=== PATIENT | female | born 1950 | race Caucasian/White ===

== ENCOUNTER 2017-06-20 14:59 | Inpatient (IN) ==
[2017-06-20] MEDS ORDERED: *HR* HYDROmorphone (PF) 1 MG/ML SYRINGE IVP ONE (15:05)
[2017-06-20] MEDS ORDERED: Ondansetron ODT 4 MG TAB.RAPDIS SL ONE (15:45)
[2017-06-20] MEDS ORDERED: Ondansetron 4 MG/2 ML VIAL ONE (15:46)
[2017-06-20] MEDS ORDERED: Ondansetron 4 MG/2 ML VIAL IVP ONE (15:48)
--- NOTE | 2017-06-20 15:52 | Emergency Department Note ---
Disposition Clinical Impression: Fracture of hip Qualifiers: Encounter type: initial encounter Fracture type: closed Laterality: left Qualified Code(s): S72.002A - Fracture of unspecified part of neck of left femur , initial encounter for closed fracture Disposition: Admitted As Inpatient Condition: Good Time of Disposition: 17:12 Lower Extremity Injury HPI - General Chief Complaint: ED Extremity Injury, Lower Stated Complaint: left hip pain Time Seen by Provider: 06/20/17 15:03 Source: patient, EMS Limitations: no limitations Nursing Notes Reviewed: Yes Vital Signs Reviewed: Yes - History of Present Illness HPI Narrative: 67-year-old female presents with left hip pain. Patient trips on footstep and struck her left hip prior to arrival. She fell on concrete. Denies any head injury or loss of consciousness. Denies any neck pain. No prior history of surgery to the leg. History of coronary artery bypass graft, hypertension, diabetes. Denies any recent illness, fever, chest pain. Reports this was purely a mechanical fall. Denies any alcohol use. On physical exam patient has tenderness to the left hip does not appear shortened or internally or externally rotated. X-ray of the left hip to evaluate for possible fracture or pelvis abnormality. Pt Subjective Complaint: hip injury - Related Data Home Medications Medication Instructions Recorded Confirmed Aspirin [Adult Low Dose Aspirin EC] 81 mg PO DAILY 02/14/16 06/20/17 Docusate Sodium [Dok] 100 mg PO QAM 02/14/16 06/20/17 Ergocalciferol (VITAMIN D2) 50,000 unit PO QWEEK 02/14/16 06/20/17 [Vitamin D2 (50,000 UNIT)] Fluticasone Propionate Nasal 1 spray NS DAILY PRN 02/14/16 06/20/17 [Flonase] Furosemide [Lasix] 60 mg PO DAILY 02/14/16 06/20/17 Gabapentin [Gralise] 300 mg PO BID 02/14/16 06/20/17 Levothyroxine [Synthroid] 112 mcg PO 0630 02/14/16 06/20/17 Loratadine [Claritin] 10 mg PO DAILY 02/14/16 06/20/17 Nitroglycerin [Nitrostat] 0.4 mg SL Q5M PRN 02/14/16 06/20/17 Clopidogrel [Plavix] 75 mg PO DAILY 01/02/17 06/20/17 Isosorbide MONOnitrate [Isosorbide 120 mg PO DAILY 01/02/17 06/20/17 Mononitrate ER] Rosuvastatin Calcium [Crestor] 20 mg PO HS 01/02/17 06/20/17 Insulin Lispro Protamin/Lispro 20 units SQ QPM 05/23/17 06/20/17 [Humalog Mix 75-25 Kwikpen] Insulin Lispro Protamin/Lispro 30 unit SQ QAM 05/23/17 06/20/17 [Humalog Mix 75-25 Kwikpen] Acetaminophen [Tylenol] 500 mg PO Q6HR PRN 06/20/17 06/20/17 Ferrous Gluconate 324 mg PO DAILY 06/20/17 06/20/17 Metoprolol XL (24 HR) Succ [Toprol 50 mg PO BID 06/20/17 06/20/17 XL] traZODone [TraZODone] 50 mg PO HS 06/20/17 06/20/17 Allergies Allergy/AdvReac Type Severity Reaction Status Date / Time No Known Allergies Allergy Verified 02/14/16 12:00 All systems ED: reviewed and negative except as stated. Review of Systems: As Per HPI Constitutional: Denies: fever, chills Cardiovascular: Denies: chest pain Respiratory: Denies: dyspnea Gastrointestinal: Denies: abdominal pain Genitourinary: Denies: dysuria Musculoskeletal: Reports: back pain, arthralgia Integumentary: Denies: rash, abrasion Neurological: Denies: headache Past Medical History - Past Medical History Attestation: Yes The following information was validated with the patient. Source: patient Medical history: Reports: CHF, coronary artery disease, CVA, diabetes, hyperlipidemia, hypertension, myocardial infarction, renal disease, thyroid disease Psychiatric history: Reports: no psych history INDIAN TRADER history: Reports: no INDIAN TRADER history - Social History Smoking Status: Never smoker Smokeless Tobacco Status: No Alcohol use: Reports: none Drug use: Reports: none Physical Exam - General Limitations: no limitations General appearance: alert, in distress (Uncomfortable) - Head Head exam: atraumatic, normocephalic - Eye Eye exam: Present: normal appearance - ENT ENT exam: normal exam - Neck Neck exam: Present: normal inspection - Chest Chest inspection: Present: normal inspection. Absent: symmetric chest wall rise , tenderness - Respiratory Respiratory exam: Present: normal lung sounds bilaterally. Absent: respiratory distress, wheezes - Cardiovascular Cardiovascular exam: Present: regular rate, normal rhythm, normal heart sounds - Abdominal Exam Abdominal exam: Present: soft, Non-Tender, normal bowel sounds. Absent: tenderness, distention, guarding, rebound, rigidity - Expanded Lower Extremity Exam Hip/Pelvis exam: Present: deformity, pelvis stable. Absent: swelling, ecchymosis, crepitus, dislocation, external rotation, internal rotation, shortening Upper leg exam: Present: normal inspection Knee exam: Present: normal inspection Lower leg exam: Present: normal inspection Ankle exam: Present: normal inspection Foot/toe exam: Present: normal inspection Neurovascular/Tendon exam: Present: normal capillary refill. Absent: pulse deficit, motor deficit, sensory deficit - Neurological Exam Neurological exam: Present: alert, oriented X3 - Skin Skin exam: Present: warm, dry, intact, normal color Course - Reevaluation(s) Reevaluation #1: Patient appears uncomfortable and concern for possible fracture. She prefers [place] on her right side as it is painful to lay on her back. No neck pain. Alert and oriented to person place and time. No obvious other trauma. Good sensation bilaterally. Pulses are equal bilaterally. X-ray shows intertrochanteric fracture of the left hip. He should admitted to medicine after consulting orthopedic surgeon. No immediate surgery scheduled at this time - Consultations Consultation #1: Spoke to Dr. Prince on-call orthopedic surgeon, will speak to Dr. Parrish for possible surgery. Recommend admission to medicine for left acute intertrochanteric fracture. Pre-op labs and images ordered. No CT scan at this time. Time: 16:30 Consultation #2: Spoke to Dr. Resendiz for admission of left hip fracture. No further orders at this time. Time: 16:31 Vital Signs Temperature 97.8 F 06/20/17 15:00 Pulse Rate 69 06/20/17 15:00 Respiratory Rate 18 06/20/17 15:00 Blood Pressure 180/76 06/20/17 15:00 O2 Sat by Pulse Oximetry 100 06/20/17 15:00 Temperature 97.8 F 06/20/17 15:00 Pulse Rate 64 06/20/17 16:54 Respiratory Rate 18 06/20/17 17:03 Blood Pressure 167/81 06/20/17 17:03 O2 Sat by Pulse Oximetry 100 06/20/17 16:54 Oxygen Delivery Oxygen Delivery Nasal Cannula Extremity Injury, Lower - Medical Records Medical records reviewed: Yes I reviewed the patient's medical records. - Lab Data Lab results reviewed: Yes I reviewed the patient's lab results. Result diagrams: 06/20/17 16:36 06/20/17 16:36 Lab Results 06/20/17 06/20/17 06/20/17 Range/Units 15:44 16:36 16:36 WBC 14.4 H D (4.3-11.1) K/mcL RBC 3.49 L (3.82-4.97) M/mcL Hgb 10.3 L (11.5-15.4) g/dL Hct 31.5 L (35.3-44.9) % MCV 90.3 (83.0-100.0) fL MCH 29.5 (28.0-33.3) pg MCHC 32.7 (31.6-35.5) g/dL RDW 13.2 (11.5-14.5) % Plt Count 153 (140-400) K/mcL MPV 10.9 (9.4-12.4) fL Immature Gran % 0.6 (0-4) % Seg Neutrophils % 86.5 % Lymphocytes % 9.0 % Monocytes % 3.6 % Eosinophils % 0.1 % Basophils % 0.2 % Neutrophils # 12.5 H (1.6-8.9) K/mcL Lymphocytes # 1.3 (0.6-4.6) K/mcL Monocytes # 0.5 (0.0-1.3) K/mcL Eosinophils # 0.0 (0.0-0.6) K/mcL Basophils # 0.0 (0.0-0.2) K/mcL PT 11.6 (9.4-12.1) Seconds INR 1.1 Sodium (136-145) mEq/L Potassium (3.5-4.5) mEq/L Chloride (98-109) mEq/L Carbon Dioxide (19-29) mEq/L BUN (7-20) mg/dL Creatinine (0.57-1.11) mg/dL Est GFR ( Amer) (> 60) Est GFR (Non-Af Amer) (> 60) BUN/Creatinine Ratio (6-26) Glucose (70-99) mg/dL Calculated Osmolality (280-300) Calcium (8.6-10.8) mg/dL Urine Color Yellow (Yellow) Urine Clarity Clear (Clear) Urine pH 7.0 (5.0-8.0) pH Units Ur Specific [place] 1.012 (1.010-1.025) Urine Protein 30 H (Neg-Trace) mg/dL Urine Glucose (UA) 500 H (Normal) mg/dL Urine Ketones Negative (Negative) mg/dL Urine Blood Trace H (Negative) Urine Nitrite Negative (Negative) Urine Bilirubin Negative (Negative) Urine Urobilinogen Normal (Normal) mg/dL Ur Leukocyte Esterase Negative (Negative) Urine Microscopic RBC 0-3 (0-3) per hpf Urine Microscopic WBC 0-3 (0-3) per hpf Ur Squamous Epith Cells Moderate H (None-Few) per lpf Urine Bacteria None Seen (None-Few) per hpf Hyaline Casts None Seen (None-Few) per lpf Ur Culture Indicated? NO (NO) 06/20/17 Range/Units 16:36 WBC (4.3-11.1) K/mcL RBC (3.82-4.97) M/mcL Hgb (11.5-15.4) g/dL Hct (35.3-44.9) % MCV (83.0-100.0) fL MCH (28.0-33.3) pg MCHC (31.6-35.5) g/dL RDW (11.5-14.5) % Plt Count (140-400) K/mcL MPV (9.4-12.4) fL Immature Gran % (0-4) % Seg Neutrophils % % Lymphocytes % % Monocytes % % Eosinophils % % Basophils % % Neutrophils # (1.6-8.9) K/mcL Lymphocytes # (0.6-4.6) K/mcL Monocytes # (0.0-1.3) K/mcL Eosinophils # (0.0-0.6) K/mcL Basophils # (0.0-0.2) K/mcL PT (9.4-12.1) Seconds INR Sodium 134 L (136-145) mEq/L Potassium 4.0 (3.5-4.5) mEq/L Chloride 99 (98-109) mEq/L Carbon Dioxide 24 (19-29) mEq/L BUN 52 H (7-20) mg/dL Creatinine 1.79 H (0.57-1.11) mg/dL Est GFR ( Amer) 34 L (> 60) Est GFR (Non-Af Amer) 28 L (> 60) BUN/Creatinine Ratio 29 H (6-26) Glucose 319 H (70-99) mg/dL Calculated Osmolality 304 H (280-300) Calcium 9.7 (8.6-10.8) mg/dL Urine Color (Yellow) Urine Clarity (Clear) Urine pH (5.0-8.0) pH Units Ur Specific [place] (1.010-1.025) Urine Protein (Neg-Trace) mg/dL Urine Glucose (UA) (Normal) mg/dL Urine Ketones (Negative) mg/dL Urine Blood (Negative) Urine Nitrite (Negative) Urine Bilirubin (Negative) Urine Urobilinogen (Normal) mg/dL Ur Leukocyte Esterase (Negative) Urine Microscopic RBC (0-3) per hpf Urine Microscopic WBC (0-3) per hpf Ur Squamous Epith Cells (None-Few) per lpf Urine Bacteria (None-Few) per hpf Hyaline Casts (None-Few) per lpf Ur Culture Indicated? (NO) - Radiology Data Radiology results reviewed: Yes I reviewed the patient's radiology results. Hip X-Ray 06/20/17 15:29 IMPRESSION: Acute left-sided intertrochanteric femur fracture D/ / Jared Phipps MD / Jared Phipps MD Interpreting Provider: Jared Phipps MD - EKG Data EKG attestation: Yes I reviewed and interpreted this EKG. EKG results narrative: EKG performed 1647 normal sinus rhythm 65 beats per minute normal axis, no ST elevations or depression, intervals are within normal limits. No old EKG for comparison. No acute ischemic changes.
--- NOTE | 2017-06-20 15:53 | Emergency Department Note ---
START Narrative - START START: I examined this patient and my medical decision-making was reviewed with the Resident Physician. I agree with the documented findings, disposition and treatment plan as described except to the extent set forth below. 67-year-old female presents to the ER after a fall on her left hip. We will obtain plain films to evaluate for possible hip fracture versus pelvic fracture versus hip dislocation.
[2017-06-20] MEDS ORDERED: *HR* Promethazine 25 MG/ML VIAL IVP ONE (16:20)
[2017-06-20] MEDS ORDERED: 0.9 % Sodium Chloride 1,000 ML IVC ONE (16:21)
[2017-06-20 16:37] LABS: Bilirubin,Urine Negative (Negative); Blood,Urine Trace (Negative); Clarity,Urine Clear (Clear); Color,Urine Yellow (Yellow); Glucose,Urine (UA) 500 mg/dL (Normal); Ketones,Urine Negative (Negative); Leukocyte Esterase,Urine Negative (Negative); Nitrite,Urine Negative (Negative); Protein,Urine 30 mg/dL (Neg-Trace); Specific Gravity,Urine 1.012 (1.010-1.025); Urobilinogen,Urine Normal (Normal)
[2017-06-20 16:38] LABS: Bacteria,Urine None Seen per hpf (None-Few); Hyaline Casts,Urine None Seen per lpf (None-Few); RBC,Urine 0-3 per hpf (0-3); Squamous Epithelial Cell,Urine Moderate per lpf (None-Few); WBC,Urine 0-3 per hpf (0-3)
[2017-06-20 16:46] LABS: Basophils % 0.2 %; Eosinophils % 0.1 %; Hematocrit 31.5 % (35.3-44.9); Hemoglobin 10.3 g/dL (11.5-15.4); Immature Granulocytes % 0.6 % (0-4); Lymphocytes # 1.3 K/mcL (0.6-4.6); Mean Corpuscular HGB Conc 32.7 g/dL (31.6-35.5); Mean Corpuscular Hemoglobin 29.5 pg (28.0-33.3); Mean Corpuscular Volume 90.3 fL (83.0-100.0); Mean Platelet Volume 10.9 fL (9.4-12.4); Monocytes # 0.5 K/mcL (0.0-1.3); Monocytes % 3.6 %; Neutrophils # 12.5 K/mcL (1.6-8.9); Platelet Count 153 K/mcL (140-400); Red Blood Count 3.49 M/mcL (3.82-4.97); Red Cell Distribution Width 13.2 % (11.5-14.5); Segmented Neutrophils % 86.5 %
[2017-06-20 16:53] LABS: INR 1.1; Prothrombin Time 11.6 Seconds (9.4-12.1)
[2017-06-20 17:04] LABS: Calcium 9.7 mg/dL (8.6-10.8)
[2017-06-20] MEDS ORDERED: Naloxone 0.4 MG/ML INJ IVP PRN (17:08)
[2017-06-20] MEDS ORDERED: *HR* Dextrose 50 % in Water (Syg) 50 ML SYRINGE IVP PRN (17:14)
[2017-06-20] MEDS ORDERED: D5% in Water 1,000 ML IVC PRN (17:14)
[2017-06-20] MEDS ORDERED: Dextrose Gel 15 GM PO PRN ×2 (17:14)
[2017-06-20] MEDS ORDERED: Ondansetron 4 MG/2 ML VIAL IVP PRN ×2 (18:17→19:43)
[2017-06-20] MEDS: Pantoprazole 40 MG VIAL IVP SCH (18:20)
--- NOTE | 2017-06-20 18:23 | Orthopedic Consult Note ---
Date of Encounter: 06/20/17 Time of Encounter: 16:45 Assessment and Plan (1) Fracture of hip Current Visit: Yes Status: Acute Xrays show left hip intertrochanteric fracture. Recommend left hip IM nailing to be performed tomorrow by Dr. Magaña. I discussed the procedure as well as r/b/ a with patient and family and all questions answered. Consent obtained. Continue pain control per hospitalist. NPO after midnight tonight. Qualifiers: Encounter type: initial encounter Fracture type: closed Laterality: left Qualified Code(s): S72.002A - Fracture of unspecified part of neck of left femur, initial encounter for closed fracture History of Present Illness Chief complaint: left hip pain HPI: Ms. Pena is a 67 year old female who presented to the ER today with left hip pain after tripping over the ledge of a step at home and landing on her left side. States pain was instant in left hip and does not radiate down leg. Pain currently a constant aching, rated 4/10 but becomes worse sharp pain with motion. She does have chronic neuropathy but no worsening of numbness since injury. Denies hitting head or LOC. Denies chest pain, SOB, fevers but does admit to nausea currently. She normally ambulates well with no assistance. Past Med Surg Social Fam HX - Past Medical History Medical history: CHF, coronary artery disease, CVA, diabetes, hyperlipidemia, hypertension, myocardial infarction, renal disease, thyroid disease Psychiatric history: no psych history - Social History Smoking Status: Never smoker Smokeless Tobacco Status: No Alcohol use: none Drug use: none - Family History Mother Hx Family Cardiac Disorders: Yes (heart disease) Hx Family Endocrine Disorder: Yes (diabetes) Father Living Status: Still Living Hx Family Neuromuscular Disorders: (stroke) Medications and Allergies Aspirin [Adult Low Dose Aspirin EC] 81 mg PO DAILY 02/14/16 [History] Docusate Sodium [Dok] 100 mg PO QAM 02/14/16 [History] Ergocalciferol (VITAMIN D2) [Vitamin D2 (50,000 UNIT)] 50,000 unit PO QWEEK 02/25 [History] Fluticasone Propionate Nasal [Flonase] 1 spray NS DAILY PRN 02/14/16 [History] Furosemide [Lasix] 60 mg PO DAILY 02/14/16 [History] Gabapentin [Gralise] 300 mg PO BID 02/14/16 [History] Levothyroxine [Synthroid] 112 mcg PO 0630 02/14/16 [History] Loratadine [Claritin] 10 mg PO DAILY 02/14/16 [History] Nitroglycerin [Nitrostat] 0.4 mg SL Q5M PRN 02/14/16 [History] Clopidogrel [Plavix] 75 mg PO DAILY 01/02/17 [History] Isosorbide MONOnitrate [Isosorbide Mononitrate ER] 120 mg PO DAILY 01/02/17 [ History] Rosuvastatin Calcium [Crestor] 20 mg PO HS 01/02/17 [History] Insulin Lispro Protamin/Lispro [Humalog Mix 75-25 Kwikpen] 20 units SQ QPM 05/23 [History] Insulin Lispro Protamin/Lispro [Humalog Mix 75-25 Kwikpen] 30 unit SQ QAM [History] Acetaminophen [Tylenol] 500 mg PO Q6HR PRN 06/20/17 [History] Ferrous Gluconate 324 mg PO DAILY 06/20/17 [History] Metoprolol XL (24 HR) Succ [Toprol XL] 50 mg PO BID 06/20/17 [History] traZODone [TraZODone] 50 mg PO HS 06/20/17 [History] Allergies No Known Allergies Allergy (Verified 02/14/16 12:00) All Systems Reviewed: A 10-system review of systems was performed and is negative for pertinent findings except as documented above in the HPI. - Constitutional Constitutional: as per HPI - Cardiovascular Cardiovascular: as per HPI - Respiratory Respiratory: as per HPI - Musculoskeletal Musculoskeletal: as per HPI Physical Exam - Constitutional Vitals: Temp Pulse Resp BP Pulse Ox 97.7 F 73 14 149/55 94 06/20/17 18:07 06/20/17 18:07 06/20/17 18:07 06/20/17 18:07 06/20/17 18:07 - Hip left Tenderness with palpation: lateral (no open wounds or lesions to left hip noted , leg not shortened or rotated. tenderness to palpation of lateral hip, no calf tenderness. ROM of hip restricted due to known fracture. good dorsiflexion of foot. Brisk cap refill, grossly NV intact. ) Results - Labs Result Diagrams: 06/20/17 16:36 06/20/17 16:36 Labs: Abnormal lab results WBC 14.4 K/mcL (4.3-11.1) H D 06/20/17 16:36 RBC 3.49 M/mcL (3.82-4.97) L 06/20/17 16:36 Hgb 10.3 g/dL (11.5-15.4) L 06/20/17 16:36 Hct 31.5 % (35.3-44.9) L 06/20/17 16:36 Neutrophils # 12.5 K/mcL (1.6-8.9) H 06/20/17 16:36 Sodium 134 mEq/L (136-145) L 06/20/17 16:36 BUN 52 mg/dL (7-20) H 06/20/17 16:36 Creatinine 1.79 mg/dL (0.57-1.11) H 06/20/17 16:36 Est GFR ( Amer) 34 (> 60) L 06/20/17 16:36 Est GFR (Non-Af Amer) 28 (> 60) L 06/20/17 16:36 BUN/Creatinine Ratio 29 (6-26) H 06/20/17 16:36 Glucose 319 mg/dL (70-99) H 06/20/17 16:36 Calculated Osmolality 304 (280-300) H 06/20/17 16:36 Urine Protein 30 mg/dL (Neg-Trace) H 06/20/17 15:44 Urine Glucose (UA) 500 mg/dL (Normal) H 06/20/17 15:44 Urine Blood Trace (Negative) H 06/20/17 15:44 Ur Squamous Epith Cells Moderate per lpf (None-Few) H 06/20/17 15:44 All other labs normal. - Diagnostic results Hip x-ray: report reviewed, image reviewed Consult Discharge Plan - Plan Referrals: Jonny Nieto MD [Primary Care Provider] - - Attending Attestation Case and plan of care discussed with supervising physician who was available for all aspects of care.
--- NOTE | 2017-06-20 18:25 | Internal Med History&Physical ---
Date of Encounter: 06/20/17 Time of Encounter: 18:22 Assessment and Plan (1) CAD (coronary artery disease) Current visit: Yes Status: Acute History of CAD status post CABG in 2014. Follows with cardiology, on aspirin and Plavix. Will hold Plavix for now, continue aspirin and other home medications. Will obtain cardiology consult for preop risk assessment. Denies any chest pain or shortness of breath at this time. Qualifiers: Coronary Disease-Associated Artery/Lesion type: bypass graft [place] vs. transplanted heart: [place] heart Associated angina: without angina Qualified Code(s): I25.810 - Atherosclerosis of coronary artery bypass graft(s) without angina pectoris (2) Fracture of hip Current visit: Yes Status: Acute Patient has acute left-sided intertrochanteric femur fracture. ortho has been consulted, plan for surgery tomorrow. We will obtain preop cardiac risk assessment from cardiology given history of CABG in 2014, patient currently on aspirin and Plavix, cardiology consult has been placed. Will continue aspirin and hold Plavix for now until further cardiac recommendations. Patient denies any stent placement. Patient denies any chest pain or shortness of breath at this time. ensure DVT prophylaxis., Pain management. has leucocytosis possible from the pain and the fracture, monitor cbc, no source of infection noted, Qualifiers: Encounter type: initial encounter Fracture type: closed Laterality: left Qualified Code(s): S72.002A - Fracture of unspecified part of neck of left femur, initial encounter for closed fracture (3) Anemia Current visit: No Status: Acute Hemoglobin stable. Seen by oncology for anemia, unclear etiology. Patient has been getting anaresp, follows with nephrology, this has helped her anemia. monitor cbc. Qualifiers: Anemia type: other cause Other causes of anemia: other cause, not classified Qualified Code(s): D64.89 - Other specified anemias (4) Chronic kidney disease Current visit: No Status: Chronic follows with renal. creatinine at baseline monitro chem. Qualifiers: Chronic kidney disease stage: stage 3 (moderate) Qualified Code(s): N18.3 - Chronic kidney disease, stage 3 (moderate) Internal Medicine - H&P: HPI Chief complaint: femur fracture Admitted From: Home Plans for Post Hospital Care: Home History of present illness: Ms. Pena is a 67 year old female with PMH of CAD, s/p CABG in 2014, HTH, DM, HLD , came in after She fell on concrete. Denies any head injury or loss of consciousness. Denies any neck pain. No prior history of surgery to the leg. Denies any recent illness, fever, chest pain. Reports this was purely a mechanical fall. Denies any alcohol use. At the time of my assessment, patient is complaining of severe left-sided hip pain. Also complains of nausea possible from the opiates that she got at ED. ortho has been consulted from ED for left intertrochanteric fracture. Past Med Surg Social Fam HX - Past Medical History Medical history: CHF, coronary artery disease, CVA, diabetes, hyperlipidemia, hypertension, myocardial infarction, renal disease, thyroid disease Psychiatric history: no psych history - Social History Smoking Status: Never smoker Smokeless Tobacco Status: No Alcohol use: none Drug use: none - Family History Mother Hx Family Cardiac Disorders: Yes (heart disease) Hx Family Endocrine Disorder: Yes (diabetes) Father Living Status: Still Living Hx Family Neuromuscular Disorders: (stroke) Internal Medicine - H&P: Meds Aspirin [Adult Low Dose Aspirin EC] 81 mg PO DAILY 02/14/16 [History] Docusate Sodium [Dok] 100 mg PO QAM 02/14/16 [History] Ergocalciferol (VITAMIN D2) [Vitamin D2 (50,000 UNIT)] 50,000 unit PO QWEEK 02/25 [History] Fluticasone Propionate Nasal [Flonase] 1 spray NS DAILY PRN 02/14/16 [History] Furosemide [Lasix] 60 mg PO DAILY 02/14/16 [History] Gabapentin [Gralise] 300 mg PO BID 02/14/16 [History] Levothyroxine [Synthroid] 112 mcg PO 0630 02/14/16 [History] Loratadine [Claritin] 10 mg PO DAILY 02/14/16 [History] Nitroglycerin [Nitrostat] 0.4 mg SL Q5M PRN 02/14/16 [History] Clopidogrel [Plavix] 75 mg PO DAILY 01/02/17 [History] Isosorbide MONOnitrate [Isosorbide Mononitrate ER] 120 mg PO DAILY 01/02/17 [ History] Rosuvastatin Calcium [Crestor] 20 mg PO HS 01/02/17 [History] Insulin Lispro Protamin/Lispro [Humalog Mix 75-25 Kwikpen] 20 units SQ QPM 05/23 [History] Insulin Lispro Protamin/Lispro [Humalog Mix 75-25 Kwikpen] 30 unit SQ QAM [History] Acetaminophen [Tylenol] 500 mg PO Q6HR PRN 06/20/17 [History] Ferrous Gluconate 324 mg PO DAILY 06/20/17 [History] Metoprolol XL (24 HR) Succ [Toprol XL] 50 mg PO BID 06/20/17 [History] traZODone [TraZODone] 50 mg PO HS 06/20/17 [History] Allergies No Known Allergies Allergy (Verified 02/14/16 12:00) All Systems PM: A 10-system review of systems was performed and is negative for pertinent findings except as documented above in the HPI. - Constitutional Constitutional: as per HPI - EENT Eyes: as per HPI Ears: as per HPI Nose, mouth and throat: as per HPI - Breasts Breasts: as per HPI - Cardiovascular Cardiovascular ROS IM: as per HPI - Respiratory Respiratory: as per HPI - Gastrointestinal Gastrointestinal: as per HPI - Constitutional Vitals: Temp Pulse Resp BP Pulse Ox 97.7 F 73 14 149/55 94 06/20/17 18:07 06/20/17 18:07 06/20/17 18:07 06/20/17 18:07 06/20/17 18:07 General appearance: Present: A&O X 3, no acute distress Exam: neck- supple chest- b/l clear, no added sounds CVS-s1 and s2, no m/r/g abd-soft, non tender, bs are present ext- no edema, tenderness left hip. Internal Med - H&P Results - Labs CBC & Chem 7: 06/20/17 16:36 06/20/17 16:36
[2017-06-20] MEDS ORDERED: Ketorolac 30 MG/ML VIAL IVP PRN (18:27)
[2017-06-20] MEDS ORDERED: Insulin LISPRO 300 UNITS/3 ML VIAL SQ SCH (21:00)
[2017-06-20] MEDS ORDERED: traZODone 50 MG TABLET PO SCH (21:00)
[2017-06-20] MEDS: Gabapentin 300 MG CAPSULE PO SCH (21:59)
[2017-06-20] MEDS: Metoprolol XL (24 HR) Succ 50 MG TAB.ER.24H PO SCH (21:59)
[2017-06-20] MEDS: *HR* HYDROmorphone (PF) 1 MG/ML SYRINGE IVP PRN (23:13)
[2017-06-21] MEDS ORDERED: *HR* Enoxaparin 30 MG/0.3 ML SYRINGE SQ SCH (06:00)
[2017-06-21 06:47] LABS: Calcium 9.2 mg/dL (8.6-10.8); Potassium 4.5 mEq/L (3.5-4.5)
[2017-06-21 07:21] LABS: Basophils % 0.3 %; Eosinophils % 0.2 %; Hematocrit 30.8 % (35.3-44.9); Hemoglobin 9.8 g/dL (11.5-15.4); Immature Granulocytes % 0.4 % (0-4); Lymphocytes # 1.9 K/mcL (0.6-4.6); Mean Corpuscular HGB Conc 31.8 g/dL (31.6-35.5); Mean Corpuscular Hemoglobin 28.4 pg (28.0-33.3); Mean Corpuscular Volume 89.3 fL (83.0-100.0); Mean Platelet Volume 11.9 fL (9.4-12.4); Monocytes # 0.8 K/mcL (0.0-1.3); Monocytes % 8.8 %; Neutrophils # 6.3 K/mcL (1.6-8.9); Platelet Count 139 K/mcL (140-400); Red Blood Count 3.45 M/mcL (3.82-4.97); Red Cell Distribution Width 13.2 % (11.5-14.5); Segmented Neutrophils % 69.3 %
[2017-06-21] MEDS ORDERED: Insulin LISPRO 300 UNITS/3 ML VIAL SQ SCH ×2 (07:30→21:00)
[2017-06-21] MEDS: Pantoprazole 40 MG VIAL IVP SCH (08:03)
[2017-06-21] MEDS: *HR* HYDROmorphone (PF) 1 MG/ML SYRINGE IVP PRN (08:03)
[2017-06-21] MEDS: Metoprolol XL (24 HR) Succ 50 MG TAB.ER.24H PO SCH ×2 (08:03→20:45)
[2017-06-21] MEDS: Gabapentin 300 MG CAPSULE PO SCH ×2 (08:12→20:43)
[2017-06-21] MEDS ORDERED: Isosorbide MONOnitrate (24 HR) 60 MG TAB.ER.24H PO SCH (09:00)
[2017-06-21] MEDS ORDERED: Aspirin Enteric Coated 81 MG Tablet PO SCH (09:00)
--- NOTE | 2017-06-21 09:43 | Cardiology Consult Note ---
<CharleenJudd rogers - Last Filed: 06/21/17 13:33> Date of Encounter: 06/21/17 Time of Encounter: 08:40 Assessment and Plan (1) Pre-operative cardiovascular examination, high risk surgery Current Visit: Yes Status: Acute Patient has a Revised Cardiac Risk Index Score of 4 based on her history of CHF , CVA, diabetes treated with insulin, and her current creatinine of 2.11. This correlates with an 11% risk for a major cardiac event. Current ECG shows a sinus rhythm with no ST-elevations. She attests that she is able to move around in the home with a walker and perform her household duties with no shortness of breath, chest pain, or syncope. Last echocardiogram was on 07/18/2016 and showed a LVEF of 65% with moderate diastolic dysfunction and her stress test at the same time showed no signs of ischemia or infarct. A repeat stress test now would not change the management of the patient. Recommend that patient proceed with her hip surgery. (2) CAD (coronary artery disease) Current Visit: Yes Status: Acute Recommend to continue with aspirin and Toprol XL post-operatively. Qualifiers: Coronary Disease-Associated Artery/Lesion type: bypass graft [place] vs. transplanted heart: [place] heart Associated angina: without angina Qualified Code(s): I25.810 - Atherosclerosis of coronary artery bypass graft(s) without angina pectoris Discussion w patient/family: The assessment and plan as outlined above was discussed with the patient and/or family members who expressed understanding and agreement. All questions were answered. Thank you for involving us in the care of your patient. Please call with any questions. History of Present Illness Consult date: 06/21/17 Requesting physician: Poala Resendiz Consult reason: Pre-op cardiac risk assessment Chief complaint: Left hip pain s/p fall History of present illness: Ms. Pena is a 67 year old female that presented to the ED on 06/20/17 for L hip pain s/p fall. Patient says that she tripped over a ledge in front of her house and fell on concrete on her L hip. She denies head injury or loss of consciousness. She has a history of frequent falls and takes aspirin and plavix at home. Her plavix is currently being put on hold at the hospital. She has a PMH of CHF, CABG (2014), CVA, diabetes, [place], and HTN. Current chest x-ray reveals no acute process. Hip x-ray reveals fracture of the L femur. Ortho is planning on surgical repair of the L hip. Patient has a revised cardiac risk index score of 4. Her last echocardiogram was on 07/18/2016 and showed a LVEF of 65%. Last nuclear stress test was on 07/18/16 and showed no signs of ischemia and infarct. She currently denies any chest pain, palpitations, shortness of breath , or headaches. She cites that she uses a walker at home, but is completely independent. She is able to perfrom household duties and move around without shortness of breath, chest pain, light-headedness, or syncope. Past Med Surg Social Fam HX - Past Medical History Medical history: CHF, coronary artery disease, CVA, diabetes, hyperlipidemia, hypertension, myocardial infarction, renal disease, thyroid disease Psychiatric history: no psych history - Social History Smoking Status: Never smoker Smokeless Tobacco Status: No Alcohol use: none Drug use: none - Family History Mother Hx Family Cardiac Disorders: Yes (heart disease) Hx Family Endocrine Disorder: Yes (diabetes) Father Living Status: Still Living Hx Family Neuromuscular Disorders: (stroke) Medications and Allergies Aspirin [Adult Low Dose Aspirin EC] 81 mg PO DAILY 02/14/16 [History] Docusate Sodium [Dok] 100 mg PO QAM 02/14/16 [History] Ergocalciferol (VITAMIN D2) [Vitamin D2 (50,000 UNIT)] 50,000 unit PO QWEEK 02/25 [History] Fluticasone Propionate Nasal [Flonase] 1 spray NS DAILY PRN 02/14/16 [History] Furosemide [Lasix] 60 mg PO DAILY 02/14/16 [History] Gabapentin [Gralise] 300 mg PO BID 02/14/16 [History] Levothyroxine [Synthroid] 112 mcg PO 0630 02/14/16 [History] Loratadine [Claritin] 10 mg PO DAILY 02/14/16 [History] Nitroglycerin [Nitrostat] 0.4 mg SL Q5M PRN 02/14/16 [History] Clopidogrel [Plavix] 75 mg PO DAILY 01/02/17 [History] Isosorbide MONOnitrate [Isosorbide Mononitrate ER] 120 mg PO DAILY 01/02/17 [ History] Rosuvastatin Calcium [Crestor] 20 mg PO HS 01/02/17 [History] Insulin Lispro Protamin/Lispro [Humalog Mix 75-25 Kwikpen] 20 units SQ QPM 05/23 [History] Insulin Lispro Protamin/Lispro [Humalog Mix 75-25 Kwikpen] 30 unit SQ QAM [History] Acetaminophen [Tylenol] 500 mg PO Q6HR PRN 06/20/17 [History] Ferrous Gluconate 324 mg PO DAILY 06/20/17 [History] Metoprolol XL (24 HR) Succ [Toprol XL] 50 mg PO BID 06/20/17 [History] traZODone [TraZODone] 50 mg PO HS 06/20/17 [History] Allergies No Known Allergies Allergy (Verified 02/14/16 12:00) All Systems Review: A 10-system review of systems was performed and is negative for pertinent findings except as documented above in the HPI. - Constitutional Constitutional: no headache(s) - Cardiovascular Cardiovascular: no chest pain at rest, no dyspnea at rest, no radiating jaw, neck or arm pain, no leg edema, no orthopnea, no palpitations, no syncope - Respiratory Respiratory: no dyspnea - Gastrointestinal Gastrointestinal: nausea, no abdominal pain - Neurological Neurological: no dizziness, no numbness, no syncope, no tingling Physical Examination Vital Signs, Last 4 Hours Temp Pulse Resp BP Pulse Ox 06/21/17 06:43 98.4 F 78 16 118/67 99 06/21/17 06:00 98 General: Conversant, No Apparent Distress Neck: No JVD, Normal carotid pulses Cardiac: Reg Rate and Rhythm, Normal S1 and S2, No Murmur Lungs: Normal Breath Sounds, No Wheeze, Rales, Rhonchi Neuro: Alert and responsive Abdomen: Soft, Non-Tender Musculoskeletal: No Chest Wall Tenderness Extremities: No Clubbing, No Cyanosis, No Edema, Normal Pulses Results 06/21/17 06:14 06/21/17 06:14 Lab Results 06/21/17 06/21/17 06:14 06:14 WBC 9.1 Hgb 9.8 L Hct 30.8 L Plt Count 139 L Sodium 136 Potassium 4.5 Chloride 101 Carbon Dioxide 25 BUN 54 H Creatinine 2.11 H Glucose 322 H Calcium 9.2 - Imaging and Cardiology Chest Xray: report reviewed (Current chest x-ray shows no acute process.) Stress Test: report reviewed (Last nuclear stress test on 07/18/16 showed no signs of ischemia or infarct.) Echo: report reviewed (Last echocardiogram on 07/18/2016 showed a LVEF of 65%.) - EKG Interpretation EKG results cardiology: personally reviewed (Current ECG shows a sinus rhythm with no ST-elevations.) Consult Discharge Plan - Plan Referrals: Jonny Nieto MD [Primary Care Provider] - <GeraldSarahi - Last Filed: 06/21/17 15:09> Date of Encounter: 06/21/17 Assessment and Plan Discussion w patient/family: The assessment and plan as outlined above was discussed with the patient and/or family members who expressed understanding and agreement. All questions were answered. Thank you for involving us in the care of your patient. Please call with any questions. History of Present Illness History of present illness: Ms. Pena is a 67 year old female All Systems Review: A 10-system review of systems was performed and is negative for pertinent findings except as documented above in the HPI. Physical Examination Vital Signs, Last 4 Hours Temp Pulse Resp BP Pulse Ox 06/21/17 14:36 98.1 F 64 14 115/61 100 06/21/17 14:26 67 14 109/57 100 06/21/17 14:16 65 16 109/59 100 06/21/17 14:06 98.3 F 73 12 94/57 100 Results 06/21/17 06:14 06/21/17 06:14 - Attending Attestation I discussed this patient with the Resident Physician and reviewed his documentation. Unfortunately, the patient was taken to surgery prior to my personal evaluation of the patient. Based on the Resident's findings, this patient has a RCRI score of 4 correlating with estimated 11% risk for a major perioperative cardiac event. Despite this, her last echo demonstrated normal LVEF. Her ECG has been without acute findings and troponins negative. She was recently seen in the outpatient cardiology office where she described being able to do at least 30 minutes of daily activity. Further testing, such as stress testing or cardiac catheterization is unlikely to minimize her risk and may delay her surgery. If surgery is imperative, recommend proceeding with knowledge of her cardiac risk. Recommend continuing beta mirtha and aspirin. Will sign off.
[2017-06-21] MEDS ORDERED: 0.9 % Sodium Chloride 1,000 ML IVC SCH (09:45)
--- NOTE | 2017-06-21 11:47 | Anesthesia Evaluation PreOp ---
Date of Encounter: 06/21/17 Time of Encounter: 11:45 - Past History Planned Operation: left hip nailing Cardiac History: HTN, Hyperlipidemia, Cardiac Surgery (CABG 2014) Pulmonary History: Denies Any Significant HX ENERGY MANAGER History: CVA (residual right upper and right lower extremity weakness) Other Medical History: Renal (ckd), Diabetes Type II, Thyroid Anesthesia History: Problems (nausea after anesthesia and with pain medications) Alcohol Use: none Drug use: none Medications and Allergies Aspirin [Adult Low Dose Aspirin EC] 81 mg PO DAILY 02/14/16 [History] Docusate Sodium [Dok] 100 mg PO QAM 02/14/16 [History] Ergocalciferol (VITAMIN D2) [Vitamin D2 (50,000 UNIT)] 50,000 unit PO QWEEK 02/25 [History] Fluticasone Propionate Nasal [Flonase] 1 spray NS DAILY PRN 02/14/16 [History] Furosemide [Lasix] 60 mg PO DAILY 02/14/16 [History] Gabapentin [Gralise] 300 mg PO BID 02/14/16 [History] Levothyroxine [Synthroid] 112 mcg PO 0630 02/14/16 [History] Loratadine [Claritin] 10 mg PO DAILY 02/14/16 [History] Nitroglycerin [Nitrostat] 0.4 mg SL Q5M PRN 02/14/16 [History] Clopidogrel [Plavix] 75 mg PO DAILY 01/02/17 [History] Isosorbide MONOnitrate [Isosorbide Mononitrate ER] 120 mg PO DAILY 01/02/17 [ History] Rosuvastatin Calcium [Crestor] 20 mg PO HS 01/02/17 [History] Insulin Lispro Protamin/Lispro [Humalog Mix 75-25 Kwikpen] 20 units SQ QPM 05/23 [History] Insulin Lispro Protamin/Lispro [Humalog Mix 75-25 Kwikpen] 30 unit SQ QAM [History] Acetaminophen [Tylenol] 500 mg PO Q6HR PRN 06/20/17 [History] Ferrous Gluconate 324 mg PO DAILY 06/20/17 [History] Metoprolol XL (24 HR) Succ [Toprol XL] 50 mg PO BID 06/20/17 [History] traZODone [TraZODone] 50 mg PO HS 06/20/17 [History] Allergies No Known Allergies Allergy (Verified 02/14/16 12:00) - Meds/Allergy Pre-op Review Medications Reviewed: Yes Allergies Reviewed: Yes Beta Blockers on Current Med List: Yes If Beta Blockers taken, Date/Time (Last Dose taken): 06-21-17 metoprolol xl 8:03 Anesthesia Results - Labs 06/21/17 06:14 06/21/17 06:14 - Imaging EKG: report reviewed, image reviewed (SINUS BRADYCARDIA wnl) Additional studies: TTE: Impressions: Normal LV systolic function, LVEF 65%. Mild concentric left ventricular hypertrophy. Moderate left ventricular diastolic dysfunction. Normal right ventricular structure and function. Moderately dilated left atrium. No significant valvular dysfunction. No evidence of pulmonary hypertension. Anesthesia Exam Last Vital Signs Temp 98.4 F 06/21/17 10:59 Pulse 63 06/21/17 10:59 Resp 18 06/21/17 10:59 BP 112/67 06/21/17 10:59 Pulse Ox 97 06/21/17 10:59 Weight: 83 kg - HEENT Pupil (Motor): Pupils equal, EOMI Mallampati: II Teeth: Normal (prominent upper teeth) Oral Opening: Greater than 3 - ENERGY MANAGER LOC: Oriented ENERGY MANAGER Motor: Deficit RUE ENERGY MANAGER Sensory: Deficit: RUE - Cardiac Rhythm: Regular Murmur: None - Pulmonary Breath Sounds: bilateral Clear Respiratory Effort: Symmetrical Anesthesia Assess/Plan ASA Score: 3 Modified Charo Scale for Level of Consciousness: Cooperative, oriented, and tranquil Anesthetic Plan: General, Precautions (avoid succinylcholine due to residual motor deficits from stroke) Monitoring Plan: Standard Monitors Recovery Plan: PACU
[2017-06-21] MEDS ORDERED: Scopolamine Patch 1.5 MG PATCH.TD72 ONE (11:54)
[2017-06-21] MEDS ORDERED: EPHEDrine 50 MG/ML VIAL ONE (13:03)
[2017-06-21] MEDS ORDERED: *HR* Phenylephrine 10 MG/ML VIAL ONE (13:03)
[2017-06-21] MEDS ORDERED: Dexamethasone 4 MG/ML VIAL ONE (13:03)
[2017-06-21] MEDS ORDERED: *HR* FentaNYL (PF) 100 MCG/2 ML VIAL ONE (13:03)
[2017-06-21] MEDS ORDERED: Neostigmine Methylsulfate 3 MG/3 ML SYRINGE ONE (13:03)
[2017-06-21] MEDS ORDERED: *HR* Propofol 200 MG/20 ML VIAL IVP ONE (13:03)
[2017-06-21] MEDS ORDERED: *HR* Succinylcholine 200 MG/10 ML VIAL IVP ONE (13:03)
[2017-06-21] MEDS ORDERED: Lidocaine -MPF 2% 2 ML VIAL ONE ×2 (13:03)
[2017-06-21] MEDS ORDERED: *HR* Rocuronium Bromide 50 MG/5 ML VIAL ONE (13:03)
[2017-06-21] MEDS ORDERED: *HR* Midazolam HCl 2 MG/2 ML VIAL ONE (13:03)
[2017-06-21] MEDS ORDERED: *HR* Labetalol 20 MG/4 ML SYRINGE IVP PRN ×2 (13:06→15:01)
[2017-06-21] MEDS ORDERED: *HR* Morphine 2 MG/ML SYRINGE IVP PRN ×2 (13:06→15:01)
[2017-06-21] MEDS ORDERED: *HR* Promethazine 25 MG/ML VIAL IVP PRN ×2 (13:06→15:01)
[2017-06-21] MEDS ORDERED: Ondansetron 4 MG/2 ML VIAL IVP ONE ×2 (13:06→15:01)
[2017-06-21] MEDS ORDERED: *HR* HYDROmorphone (PF) 1 MG/ML SYRINGE IVP PRN ×3 (13:06→15:01)
[2017-06-21] MEDS ORDERED: *HR* Morphine 10 MG/ML VIAL ONE (14:03)
--- NOTE | 2017-06-21 14:25 | Internal Med Progress Note ---
Date of Encounter: 06/21/17 Time of Encounter: 08:10 - Assessment and plan (1) Fracture of hip Current Visit: Yes Status: Acute Assessment and plan: Acute left intertrochanteric femur fracture. Evaluated by orthopedics and recommended intramedullary nailing. Planned for later today. Moderate risk for complications. Qualifiers: Encounter type: initial encounter Fracture type: closed Laterality: left Qualified Code(s): S72.002A - Fracture of unspecified part of neck of left femur, initial encounter for closed fracture (2) Anemia Current Visit: Yes Status: Chronic Assessment and plan: Due to chronic kidney disease. Hemoglobin is 9.8. Will monitor blood counts. Transfuse as needed postoperatively. Qualifiers: Anemia type: due to chronic kidney disease Chronic kidney disease stage: stage 3 (moderate) Qualified Code(s): N18.3 - Chronic kidney disease, stage 3 (moderate); D63.1 - Anemia in chronic kidney disease (3) CAD (coronary artery disease) Current Visit: Yes Status: Acute Assessment and plan: Cardiology has been consulted for preoperative evaluation. Patient on aspirin and Plavix. These medications have been held due to impending surgery. Continue beta mirtha and statin. Qualifiers: Coronary Disease-Associated Artery/Lesion type: bypass graft [place] vs. transplanted heart: [place] heart Associated angina: without angina Qualified Code(s): I25.810 - Atherosclerosis of coronary artery bypass graft(s) without angina pectoris (4) Chronic kidney disease Current Visit: Yes Status: Chronic Assessment and plan: Creatinine 2.11. We will gently hydrate patient as she is nothing by mouth. Follow renal function closely. Qualifiers: Chronic kidney disease stage: stage 3 (moderate) Qualified Code(s): N18.3 - Chronic kidney disease, stage 3 (moderate) - Subjective Interval history: Patient complains of nausea after she received intravenous pain medication. Pain persists in her left hip region. Denies any focal weakness or numbness in her lower extremities. Pain is controlled with intravenous narcotic medications. Awaiting possible surgery planned for later today. - Constitutional Vitals: Temp Pulse Resp BP Pulse Ox 98.3 F 73 12 94/57 100 06/21/17 14:06 06/21/17 14:06 06/21/17 14:06 06/21/17 14:06 06/21/17 14:06 General appearance: Present: cooperative, mild distress, A&O X 3, answers questions appropriately - Neck Neck exam general surgery: Present: supple, trachea midline. Absent: lymphadenopathy - Respiratory Respiratory exam: Present: CTAB. Absent: accessory muscle use, rales, rhonchi, wheezes - Cardiovascular Cardiovascular exam: Present: RRR, +S1, +S2. Absent: diastolic murmur, gallop, rubs, systolic murmur - GI/Abdominal GI/Abdominal exam: Present: normal bowel sounds, soft, no peritoneal signs. Absent: distended, tenderness - Extremities Exam Extremities exam: Present: tenderness (In the left hip region with decreased range of motion), warm, radial pulses palpable and symmetrical. Absent: calf tenderness, cyanotic, pedal edema - Neurological Exam Neurological exam: Present: alert, oriented X3, no focal deficits. Absent: facial droop, speech deficit Internal Medicine: Result - Labs CBC & Chem 7: 06/21/17 06:14 06/21/17 06:14 - ABG Interpretation ABG results: PT/INR, D-dimer PT 11.6 Seconds (9.4-12.1) 06/20/17 16:36 Consult Discharge Plan - Plan Referrals: Jonny Nieto MD [Primary Care Provider] -
--- NOTE | 2017-06-21 14:40 | Anesthesia Evaluation Post Op ---
Date of Encounter: 06/21/17 Time of Encounter: 14:38 - Vital Signs Vital Signs: Vital Signs/O2 Sat/Glucose, Most Recent Temp Pulse Resp BP Pulse Ox 98.3 F 67 14 109/57 100 06/21/17 14:06 06/21/17 14:26 06/21/17 14:26 06/21/17 14:26 06/21/17 14:26 Blood Glucose* 258 - Lungs Lungs: Clear Ascult./Percussion - Airway Airway: Non-obstructed - Cardiovascular Regular Rate - Mental Status Mental Status: Alert & Oriented, Answers Appropriately - Pain Pain Scale: 0 Pain Scale used: Numeric (1 - 10) - Nausea Vomiting Nausea Vomiting: Not Present - Hydration Hydration: Ice chips, Lu catheter Notes: 06/21/17 14:39 AAOx3, VSS with no complaints - Discharge PostOp Status: Transfer Patient to floor
[2017-06-21] MEDS ORDERED: *HR* Dextrose 50 % in Water (Syg) 50 ML SYRINGE IVP PRN (15:01)
[2017-06-21] MEDS ORDERED: Ondansetron 4 MG/2 ML VIAL IVP PRN (15:01)
[2017-06-21] MEDS ORDERED: Naloxone 0.4 MG/ML INJ IVP PRN (15:01)
[2017-06-21] MEDS ORDERED: Acetaminophen 325 MG TABLET PO PRN (15:01)
[2017-06-21] MEDS ORDERED: D5% in Water 1,000 ML IVC PRN (15:01)
[2017-06-21] MEDS ORDERED: *HR* OxyCODONE Immed Rel 5 MG TABLET PO PRN (15:01)
[2017-06-21] MEDS ORDERED: Ketorolac 30 MG/ML VIAL IVP PRN (15:01)
[2017-06-21] MEDS ORDERED: Dextrose Gel 15 GM PO PRN ×2 (15:01)
[2017-06-21] MEDS ORDERED: Sennosides 8.6 MG TABLET PO PRN (15:01)
[2017-06-21] MEDS ORDERED: Fluticasone Propionate Nasal 50 MCG/SPRAY BOTTLE NS PRN (15:01)
--- NOTE | 2017-06-21 15:31 | Electrocardiograph Report ---
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
--- NOTE | 2017-06-21 16:20 | Operative Note ---
Date of procedure: 06/21/17 Pre-op diagnosis: Left hip intertrochanteric fracture Post-op diagnosis: same Procedure: Left hip intramedullary nailing Complications: Broken wire within femur, midshaft Anesthesia: DIETERA Surgeon: Ambrose Magaña Estimated blood loss (cc): 400 Specimen: 0 Condition: stable Disposition: PACU Procedure in Detail: The patient received IV antibiotics in the holding area. She was brought to the operating room, sign in was performed. The patient underwent general anesthesia on the hospital bed. She was then transferred to the fracture table in supine position. The patient was positioned with the support groin post, the affected left lower extremity in the traction banegas and the contralateral lower extremity in a well-padded limb banegas with a hip flexed and abducted out of the way. Fluoroscopy was then brought in, the fractures visualized, and the fracture reduced. We checked on AP and true lateral view of the hip. Once satisfactory the left hip, from the pelvis down to the knee, was prepped and draped in usual sterile fashion. A timeout was performed. The level of the greater trochanter was palpated, a 4-5 cm oblique incision was made just proximally, , followed by Bovie dissection. The hip abductor was sharply split in line with its fibers with a curved Fatima scissors. The tip of the greater trochanter was palpable. A curved awl was then positioned on the tip. Its position was checked on fluoroscopy, slightly advanced, and we checked the lateral view. Once appropriately positioned, the aggressive awl was then used to open the proximal femur down to level of the lesser trochanter. A short Trochanteric Femoral Nail Advanced with 130 degree neck angle, ten mm diameter, was assembled, and appropriately inserted into the proximal femur. The patient underwent a tight proximal femoral canal, with fairly large cortices , and the nail was malleted in place. The appropriate level was checked under fluoroscopy. The triple trochars of 130 degree neck angle was then positioned against the skin, checking fluoroscopy for positioning. Once satisfactory a 2.5 cm incision was made, the fascia was bluntly split along with the muscle fibers of the vastus lateralis. The triple trocar was advanced up against the lateral cortex. The guidepin was then driven up into the femoral head, checking AP and lateral views. The wire was adjusted as needed. A 95 mm long helical blade was chosen. Overdrilled the guidewire, and the helical blade was tapped in place over the guidewire in standard technique. Once close to the edge of the femoral head, the setscrew was then screwed down, backing off half a turn to allow to compress dynamically. Traction was then taken off the leg, and the fracture compressed. The triple trochars for the distal static locking screw were placed in the jig, a 1 cm longitudinal incision was made. The trochars were advanced to the cortex , and drilled across. The drill bit would not advance across. The patient's femoral shaft was very hard with very thick cortices. A 3.2 mm guide pin was used to try to open up the path, however the tip snapped within the shaft. On checking slightly off lateral, it was quite clear if the jig was appropriately aligned. I attempted to free hand drill but the bone was so hard that I decided against it so as not to snapped off the drill bit also. The distal nail had a very tight fit in the canal, the distal screw was not placed. The wounds were irrigated with normal saline. Fascia over the abductors was closed with 0 Vicryl [id number] stitches, including the deep subcutaneous fat layer. Subcutaneous tissues were closed with 2-0 Vicryl, and the skin incisions were closed with syed. Sterile dressings were applied. The patient was transferred to hospital bed where she was extubated and taken to recovery room in stable condition.
[2017-06-21 16:31] LABS: Hematocrit 28.4 % (35.3-44.9); Hemoglobin 8.9 g/dL (11.5-15.4)
[2017-06-21] MEDS: 0.9 % Sodium Chloride 1,000 ML IVC SCH (16:44)
[2017-06-21] MEDS: ceFAZolin 2,000 MG in D5% in Water 100 ML IVPB SCH (16:44)
[2017-06-21] MEDS: Insulin LISPRO 300 UNITS/3 ML VIAL SQ SCH (16:45)
[2017-06-21] MEDS: traZODone 50 MG TABLET PO SCH (20:43)
[2017-06-22] MEDS: ceFAZolin 2,000 MG in D5% in Water 100 ML IVPB SCH (00:04)
[2017-06-22] MEDS: *HR* Enoxaparin 30 MG/0.3 ML SYRINGE SQ SCH (05:27)
[2017-06-22 06:39] LABS: Basophils % 0.3 %; Eosinophils % 0.1 %; Hematocrit 22.8 % (35.3-44.9); Immature Granulocytes % 0.6 % (0-4); Lymphocytes # 1.3 K/mcL (0.6-4.6); Lymphocytes % 16.4 %; Mean Corpuscular HGB Conc 31.6 g/dL (31.6-35.5); Mean Corpuscular Volume 91.9 fL (83.0-100.0); Mean Platelet Volume 11.7 fL (9.4-12.4); Monocytes # 0.6 K/mcL (0.0-1.3); Monocytes % 7.3 %; Platelet Count 131 K/mcL (140-400); Red Blood Count 2.48 M/mcL (3.82-4.97); Red Cell Distribution Width 13.4 % (11.5-14.5); Segmented Neutrophils % 75.3 %
[2017-06-22 06:47] LABS: Hemoglobin 7.2 g/dL (11.5-15.4)
[2017-06-22 06:51] LABS: Calcium 8.8 mg/dL (8.6-10.8); Potassium 4.3 mEq/L (3.5-4.5)
[2017-06-22] MEDS ORDERED: 0.9 % Sodium Chloride 250 ML ONE (09:40)
[2017-06-22] MEDS: Pantoprazole 40 MG VIAL IVP SCH (09:47)
[2017-06-22] MEDS: Insulin LISPRO 300 UNITS/3 ML VIAL SQ SCH ×4 (09:47→21:14)
[2017-06-22] MEDS: Isosorbide MONOnitrate (24 HR) 60 MG TAB.ER.24H PO SCH (09:48)
[2017-06-22] MEDS: Gabapentin 300 MG CAPSULE PO SCH ×2 (09:49→21:13)
[2017-06-22] MEDS: Metoprolol XL (24 HR) Succ 50 MG TAB.ER.24H PO SCH ×2 (09:49→21:13)
--- NOTE | 2017-06-22 12:58 | Orthopedics Progress Note ---
Date of Encounter: 06/22/17 Time of Encounter: 12:40 - Assessment and Plan (1) Fracture of hip Current Visit: Yes Status: Acute POD#1 s/p left hip IM nailing Small quarter sized drainage noted to proximal dressings but otherwise clean and intact. Dressings to be changed tomorrow. Pain control per hospitalist. Continue therapy, WBAT. Ice to hip as needed for swelling. Patient planning on DC to ECF. Will follow up with Nery Reyes PA-C in [facility] office at [facility]. Qualifiers: Encounter type: initial encounter Fracture type: closed Laterality: left Qualified Code(s): S72.002A - Fracture of unspecified part of neck of left femur, initial encounter for closed fracture Subjective Principal diagnosis: POD#1 s/p left hip IM nailing Interval history: Patient doing well today but having nausea. Pain minimal at rest but increases with motion. States therapy had her up to standing this morning made it to bedside commode. Denies any calf pain. Objective Vital signs: Vital Signs Temp Pulse Resp BP Pulse Ox 06/22/17 11:54 98.8 F 75 14 102/63 95 06/22/17 11:48 98.1 F 75 14 106/64 95 06/22/17 11:27 98.2 F 77 16 111/65 06/22/17 10:49 75 111/68 93 06/22/17 07:57 98.6 F 75 17 106/55 93 06/22/17 05:23 98.5 F 73 18 102/65 94 06/22/17 01:14 98.2 F 73 19 93/60 95 06/21/17 20:40 97.6 F 75 14 118/75 100 06/21/17 20:00 99 06/21/17 19:41 98.7 F 68 16 100/61 99 06/21/17 19:10 97.7 F 93 18 128/50 100 06/21/17 16:59 98.6 F 69 17 99/56 99 06/21/17 16:02 98.7 F 67 17 145/71 100 06/21/17 15:32 98.6 F 64 16 120/79 100 06/21/17 15:00 98.6 F 64 15 108/59 100 06/21/17 14:36 98.1 F 64 14 115/61 100 06/21/17 14:26 67 14 109/57 100 06/21/17 14:16 65 16 109/59 100 06/21/17 14:06 98.3 F 73 12 94/57 100 Intake and Output 06/21/17 06/22/17 06/22/17 23:59 07:59 15:59 Intake Total 250 / 250 1360 / 1360 Output Total 350 / 350 150 / 150 Balance -100 / -100 -150 / -150 1360 / 1360 Intake: IV Fluids 100 / 100 1000 / 1000 0.9 % Sodium Chloride 1, 1000 / 1000 000 ML @ 75 mls/hr IVC . [id number] MELANIE Rx#: [id number] Ancef 2,000 MG In 100 / 100 Dextrose 5% 100 ML @ 200 mls/hr IVPB Q8HR MELANIE Rx#: [id number] Oral 150 / 150 360 / 360 Blood Product 0 / 0 Rbcs Leuko Poor As-1 0 / 0 Unit [id number] Output: Catheter 350 / 350 150 / 150 Other: Meal Breakfast Percent of Meal Consumed 50% Blood Glucose* 317 267 317 Incision: clean and dry (Dressings intact to left hip. small quarter sized drainage seen on dressings at proximal edge but otherwise clean and dry. No surrounding erythema. no calf tenderness to palpaiton. good dorsiflexion of foot. NV intact.) - Labs CBC & BMP: 06/22/17 06:11 06/22/17 06:11 Labs: Abnormal lab results RBC 2.48 M/mcL (3.82-4.97) L 06/22/17 06:11 Hgb 7.2 g/dL (11.5-15.4) L D 06/22/17 06:11 Hct 22.8 % (35.3-44.9) L 06/22/17 06:11 Plt Count 131 K/mcL (140-400) L 06/22/17 06:11 Sodium 135 mEq/L (136-145) L 06/22/17 06:11 BUN 65 mg/dL (7-20) H 06/22/17 06:11 Creatinine 2.69 mg/dL (0.57-1.11) H 06/22/17 06:11 Est GFR ( Amer) 22 (> 60) L 06/22/17 06:11 Est GFR (Non-Af Amer) 18 (> 60) L 06/22/17 06:11 Glucose 259 mg/dL (70-99) H 06/22/17 06:11 POC Glucose 317 (58-89) H 06/22/17 11:58 Calculated Osmolality 308 (280-300) H 06/22/17 06:11 Urine Protein 30 mg/dL (Neg-Trace) H 06/20/17 15:44 Urine Glucose (UA) 500 mg/dL (Normal) H 06/20/17 15:44 Urine Blood Trace (Negative) H 06/20/17 15:44 Ur Squamous Epith Cells Moderate per lpf (None-Few) H 06/20/17 15:44 - VTE Documentation of Mechanical Device: Intermittent pneumatic compression device Consult Discharge Plan - Plan Referrals: Jonny Nieto MD [Primary Care Provider] -
[2017-06-22] MEDS: 0.9 % Sodium Chloride 1,000 ML IVC SCH (14:40)
--- NOTE | 2017-06-22 14:59 | Internal Med Progress Note ---
Date of Encounter: 06/22/17 Time of Encounter: 10:45 - Assessment and plan (1) Fracture of hip Current Visit: Yes Status: Acute Assessment and plan: Status post left hip intramedullary nailing. Doing well postprocedure. Hemoglobin level at 7.2 today. We will transfuse 1 unit packed red blood cells. Moderate risk for complications. Continue physical therapy. Continue DVT prophylaxis. Patient will most likely need skilled rehabilitation. Qualifiers: Encounter type: initial encounter Fracture type: closed Laterality: left Qualified Code(s): S72.002A - Fracture of unspecified part of neck of left femur, initial encounter for closed fracture (2) Anemia Current Visit: Yes Status: Chronic Assessment and plan: Acute on chronic anemia due to blood loss from surgery. Patient does have chronic anemia and has received Epogen shots in the past. We will transfuse 1 unit of packed red blood cells. Qualifiers: Anemia type: due to chronic kidney disease Chronic kidney disease stage: stage 3 (moderate) Qualified Code(s): N18.3 - Chronic kidney disease, stage 3 (moderate); D63.1 - Anemia in chronic kidney disease (3) CAD (coronary artery disease) Current Visit: Yes Status: Chronic Assessment and plan: No chest pain. We will resume aspirin and Plavix Qualifiers: Coronary Disease-Associated Artery/Lesion type: bypass graft [place] vs. transplanted heart: [place] heart Associated angina: without angina Qualified Code(s): I25.810 - Atherosclerosis of coronary artery bypass graft(s) without angina pectoris (4) Chronic kidney disease Current Visit: Yes Status: Chronic Assessment and plan: Renal function was today. Continue gentle hydration. Avoid nephrotoxic agents. Follow renal function. Qualifiers: Chronic kidney disease stage: stage 3 (moderate) Qualified Code(s): N18.3 - Chronic kidney disease, stage 3 (moderate) - Subjective Interval history: Pain in left hip is better since her surgery. Denies any fever chills or night sweats. No dizziness or lightheadedness. No nausea or vomiting. She was able to sit up with the help of physical therapy earlier today. - Constitutional Vitals: Temp Pulse Resp BP Pulse Ox 98.7 F 80 14 110/61 95 06/22/17 14:17 06/22/17 14:17 06/22/17 14:17 06/22/17 14:17 06/22/17 11:54 General appearance: Present: cooperative, mild distress, A&O X 3, answers questions appropriately - Neck Neck exam general surgery: Present: supple, trachea midline. Absent: lymphadenopathy - Respiratory Respiratory exam: Present: CTAB. Absent: accessory muscle use, rales, rhonchi, wheezes - Cardiovascular Cardiovascular exam: Present: RRR, +S1, +S2. Absent: diastolic murmur, gallop, rubs, systolic murmur - GI/Abdominal GI/Abdominal exam: Present: normal bowel sounds, soft, no peritoneal signs. Absent: distended, tenderness - Extremities Exam Extremities exam: Present: tenderness (left hip ), warm, radial pulses palpable and symmetrical. Absent: calf tenderness, cyanotic, pedal edema - Neurological Exam Neurological exam: Present: alert, CN II-XII intact, oriented X3, no focal deficits. Absent: facial droop, speech deficit - Skin Skin exam: Present: dry, intact Internal Medicine: Result - Labs CBC & Chem 7: 06/22/17 06:11 06/22/17 06:11 Labs: Short CBC 06/21/17 06/22/17 Range/Units 16:04 06:11 WBC 7.9 (4.3-11.1) K/mcL Hgb 8.9 L 7.2 L D (11.5-15.4) g/dL Hct 28.4 L 22.8 L (35.3-44.9) % Plt Count 131 L (140-400) K/mcL Neutrophils # 6.0 (1.6-8.9) K/mcL BMP 06/22/17 06:11 Sodium 135 L Potassium 4.3 Chloride 103 Carbon Dioxide 23 BUN 65 H Creatinine 2.69 H Glucose 259 H Calcium 8.8 - ABG Interpretation ABG results: PT/INR, D-dimer PT 11.6 Seconds (9.4-12.1) 06/20/17 16:36 - VTE Documentation of Mechanical Device: Intermittent pneumatic compression device Consult Discharge Plan - Plan Referrals: Jonny Nieto MD [Primary Care Provider] -
[2017-06-22] MEDS: traZODone 50 MG TABLET PO SCH (21:13)
[2017-06-22] MEDS: Insulin DETEMIR 100 UNIT/ML X5UNITS SQ SCH (21:14)
[2017-06-23] MEDS: *HR* Enoxaparin 30 MG/0.3 ML SYRINGE SQ SCH (06:10)
[2017-06-23 07:21] LABS: Calcium 8.5 mg/dL (8.6-10.8); Potassium 4.2 mEq/L (3.5-4.5)
[2017-06-23 08:07] LABS: Basophils % 0.2 %; Eosinophils # 0.1 K/mcL (0.0-0.6); Eosinophils % 0.6 %; Hematocrit 23.2 % (35.3-44.9); Hemoglobin 7.3 g/dL (11.5-15.4); Immature Granulocytes % 0.6 % (0-4); Lymphocytes # 1.1 K/mcL (0.6-4.6); Mean Corpuscular HGB Conc 31.5 g/dL (31.6-35.5); Mean Corpuscular Hemoglobin 28.5 pg (28.0-33.3); Mean Corpuscular Volume 90.6 fL (83.0-100.0); Mean Platelet Volume 11.7 fL (9.4-12.4); Monocytes # 0.9 K/mcL (0.0-1.3); Monocytes % 10.5 %; Neutrophils # 6.4 K/mcL (1.6-8.9); Nucleated Red Blood Cells 0.2 /100 WBC (0); Platelet Count 129 K/mcL (140-400); Red Blood Count 2.56 M/mcL (3.82-4.97); Segmented Neutrophils % 75.1 %
[2017-06-23] MEDS: Isosorbide MONOnitrate (24 HR) 60 MG TAB.ER.24H PO SCH (08:27)
[2017-06-23] MEDS: Aspirin Enteric Coated 81 MG Tablet PO SCH (08:27)
[2017-06-23] MEDS: Metoprolol XL (24 HR) Succ 50 MG TAB.ER.24H PO SCH ×2 (08:28→21:26)
[2017-06-23] MEDS: Pantoprazole 40 MG VIAL IVP SCH (08:28)
[2017-06-23] MEDS: Gabapentin 300 MG CAPSULE PO SCH ×2 (08:28→21:25)
[2017-06-23] MEDS: Insulin LISPRO 300 UNITS/3 ML VIAL SQ SCH ×7 (08:28→21:26)
--- NOTE | 2017-06-23 10:17 | Internal Med Progress Note ---
Date of Encounter: 06/23/17 Time of Encounter: 08:15 - Assessment and plan (1) Fracture of hip Current Visit: Yes Status: Acute Assessment and plan: Status post-intramedullary nailing. Continue supportive care. Physical therapy. Patient will be placed to skilled rehabilitation once she is medically clear. Moderate risk for complications. Pain control Qualifiers: Encounter type: initial encounter Fracture type: closed Laterality: left Qualified Code(s): S72.002A - Fracture of unspecified part of neck of left femur, initial encounter for closed fracture (2) Anemia Current Visit: Yes Status: Chronic Assessment and plan: Hemoglobin levels remained low despite one unit packed red blood cell transfusion. We will transfuse another unit. We will continue to monitor blood counts. Moderate risk for complications. Patient does have chronic anemia related to kidney disease and has received erythropoietin injections in the past Qualifiers: Anemia type: due to chronic kidney disease Chronic kidney disease stage: stage 3 (moderate) Qualified Code(s): N18.3 - Chronic kidney disease, stage 3 (moderate); D63.1 - Anemia in chronic kidney disease (3) CAD (coronary artery disease) Current Visit: Yes Status: Chronic Assessment and plan: Continue aspirin and Plavix along with beta mirtha and statin. No chest pain. Qualifiers: Coronary Disease-Associated Artery/Lesion type: bypass graft [place] vs. 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 Creatinine 2.53 today. Continue gentle IV hydration. Qualifiers: Chronic kidney disease stage: stage 3 (moderate) Qualified Code(s): N18.3 - Chronic kidney disease, stage 3 (moderate) - Subjective Interval history: Patient lying in bed. Appears comfortable. Pain seems to be controlled as long as she is lying in bed but any sort of movement makes the pain worse. Overall the pain seems to be somewhat subsiding. Tolerating diet well. - Constitutional Vitals: Temp Pulse Resp BP Pulse Ox 98.4 F 81 16 127/69 93 06/23/17 08:26 06/23/17 08:26 06/23/17 08:26 06/23/17 08:26 06/23/17 08:26 General appearance: Present: cooperative, mild distress, A&O X 3, answers questions appropriately - Respiratory Respiratory exam: Present: CTAB. Absent: accessory muscle use, rales, rhonchi, wheezes - Cardiovascular Cardiovascular exam: Present: RRR, +S1, +S2. Absent: diastolic murmur, gallop, rubs, systolic murmur - GI/Abdominal GI/Abdominal exam: Present: normal bowel sounds, soft, no peritoneal signs. Absent: distended, tenderness - Extremities Exam Extremities exam: Present: tenderness (left hip), warm, radial pulses palpable and symmetrical. Absent: calf tenderness, cyanotic, pedal edema Internal Medicine: Result - Labs CBC & Chem 7: 06/23/17 06:44 06/23/17 06:44 Labs: Short CBC 06/23/17 Range/Units 06:44 WBC 8.5 (4.3-11.1) K/mcL Hgb 7.3 L (11.5-15.4) g/dL Hct 23.2 L (35.3-44.9) % Plt Count 129 L (140-400) K/mcL Neutrophils # 6.4 (1.6-8.9) K/mcL BMP 06/23/17 06:44 Sodium 134 L Potassium 4.2 Chloride 104 Carbon Dioxide 23 BUN 68 H Creatinine 2.53 H Glucose 226 H Calcium 8.5 L - ABG Interpretation ABG results: PT/INR, D-dimer PT 11.6 Seconds (9.4-12.1) 06/20/17 16:36 - VTE Documentation of Mechanical Device: Intermittent pneumatic compression device Consult Discharge Plan - Plan Referrals: Jonny Nieto MD [Primary Care Provider] -
[2017-06-23] MEDS ORDERED: 0.9 % Sodium Chloride 250 ML ONE (11:06)
[2017-06-23] MEDS: Insulin DETEMIR 100 UNIT/ML X5UNITS SQ SCH ×2 (12:41→21:26)
--- NOTE | 2017-06-23 14:25 | Orthopedics Progress Note ---
Date of Encounter: 06/23/17 Time of Encounter: 14:22 - Assessment and Plan (1) Fracture of hip Current Visit: Yes Status: Acute Postoperative day #2 with acute blood loss anemia Check H&H Continue PT and OT with weightbearing as tolerated Patient ready for discharge to [place] rehabilitation if H&H remain stable WBAT f/u in 2 weeks Lovnox 40 mg SC QD x 14 days Qualifiers: Encounter type: subsequent encounter Fracture type: closed Laterality: left Fracture healing: with routine healing Qualified Code(s): S72.002D - Fracture of unspecified part of neck of left femur, subsequent encounter for closed fracture with routine healing Subjective Principal diagnosis: POD#2 s/p left hip IM nailing Interval history: Patient is comfortable Blood transfusion of 1 unit packed red blood cells is completed Left hip dressing clean dry intact Calves are soft and nontender Grossly neurovascular intact distally Objective Vital signs: Vital Signs Temp Pulse Resp BP Pulse Ox 06/23/17 14:21 99.0 F 78 15 138/62 94 06/23/17 11:33 98.9 F 77 15 136/61 06/23/17 11:18 98.2 F 74 16 138/64 97 06/23/17 08:26 98.4 F 81 16 127/69 93 06/23/17 00:35 98.9 F 77 16 108/60 98 06/22/17 19:49 99.3 F 79 17 111/62 98 06/22/17 15:11 98.9 F 78 16 101/63 99 Intake and Output 06/22/17 06/23/17 06/23/17 23:59 07:59 15:59 Intake Total 960 / 960 1000 / 1000 420 / 420 Output Total 300 / 300 Balance 960 / 960 700 / 700 420 / 420 Intake: IV Fluids 1000 / 1000 0.9 % Sodium Chloride 1, 1000 / 1000 000 ML @ 75 mls/hr IVC . [id number] MELANIE Rx#: [id number] Oral 960 / 960 120 / 120 Blood Product 300 / 300 Rbcs Leuko Poor As-1 300 / 300 Unit [id number] Output: Urine 300 / 300 Other: Meal Dinner Lunch Percent of Meal Consumed 100% 80% # Voids 3 Blood Glucose* 296 230 198 Incision: clean and dry - Labs CBC & BMP: 06/23/17 06:44 06/23/17 06:44 Labs: Abnormal lab results RBC 2.56 M/mcL (3.82-4.97) L 06/23/17 06:44 Hgb 7.3 g/dL (11.5-15.4) L 06/23/17 06:44 Hct 23.2 % (35.3-44.9) L 06/23/17 06:44 MCHC 31.5 g/dL (31.6-35.5) L 06/23/17 06:44 Plt Count 129 K/mcL (140-400) L 06/23/17 06:44 Nucleated RBCs/100 WBC 0.2 /100 WBC (0) H 06/23/17 06:44 Sodium 134 mEq/L (136-145) L 06/23/17 06:44 BUN 68 mg/dL (7-20) H 06/23/17 06:44 Creatinine 2.53 mg/dL (0.57-1.11) H 06/23/17 06:44 Est GFR ( Amer) 23 (> 60) L 06/23/17 06:44 Est GFR (Non-Af Amer) 19 (> 60) L 06/23/17 06:44 BUN/Creatinine Ratio 27 (6-26) H 06/23/17 06:44 Glucose 226 mg/dL (70-99) H 06/23/17 06:44 POC Glucose 313 (58-89) H 06/22/17 15:15 Calculated Osmolality 305 (280-300) H 06/23/17 06:44 Calcium 8.5 mg/dL (8.6-10.8) L 06/23/17 06:44 Urine Protein 30 mg/dL (Neg-Trace) H 06/20/17 15:44 Urine Glucose (UA) 500 mg/dL (Normal) H 06/20/17 15:44 Urine Blood Trace (Negative) H 06/20/17 15:44 Ur Squamous Epith Cells Moderate per lpf (None-Few) H 06/20/17 15:44 - VTE Documentation of Mechanical Device: Intermittent pneumatic compression device Consult Discharge Plan - Plan Referrals: Jonny Nieto MD [Primary Care Provider] - Prescriptions: Enoxaparin [Lovenox] 40 mg SQ DAILY #14 syr
--- NOTE | 2017-06-23 14:31 | Physician Discharge Referral ---
ExtendedCare Referral Info Transfer To: [facility] - Diagnosis (1) Fracture of hip Status: Acute - Transfer Medications Prescriptions: Enoxaparin [Lovenox] 40 mg SQ DAILY #14 syr Home Medications: Aspirin [Adult Low Dose Aspirin EC] 81 mg PO DAILY 02/14/16 [History] Docusate Sodium [Dok] 100 mg PO QAM 02/14/16 [History] Ergocalciferol (VITAMIN D2) [Vitamin D2 (50,000 UNIT)] 50,000 unit PO QWEEK 02/25 [History] Fluticasone Propionate Nasal [Flonase] 1 spray NS DAILY PRN 02/14/16 [History] Furosemide [Lasix] 60 mg PO DAILY 02/14/16 [History] Gabapentin [Gralise] 300 mg PO BID 02/14/16 [History] Levothyroxine [Synthroid] 112 mcg PO 0630 02/14/16 [History] Loratadine [Claritin] 10 mg PO DAILY 02/14/16 [History] Nitroglycerin [Nitrostat] 0.4 mg SL Q5M PRN 02/14/16 [History] Clopidogrel [Plavix] 75 mg PO DAILY 01/02/17 [History] Isosorbide MONOnitrate [Isosorbide Mononitrate ER] 120 mg PO DAILY 01/02/17 [ History] Rosuvastatin Calcium [Crestor] 20 mg PO HS 01/02/17 [History] Insulin Lispro Protamin/Lispro [Humalog Mix 75-25 Kwikpen] 20 units SQ QPM 05/23 [History] Insulin Lispro Protamin/Lispro [Humalog Mix 75-25 Kwikpen] 30 unit SQ QAM [History] Acetaminophen [Tylenol] 500 mg PO Q6HR PRN 06/20/17 [History] Ferrous Gluconate 324 mg PO DAILY 06/20/17 [History] Metoprolol XL (24 HR) Succ [Toprol XL] 50 mg PO BID 06/20/17 [History] traZODone [TraZODone] 50 mg PO HS 06/20/17 [History] Enoxaparin [Lovenox] 40 mg SQ DAILY #14 syr 06/23/17 [Rx] Allergies/Adverse Reactions: Allergies No Known Allergies Allergy (Verified 04/04/16 12:00) - Respiratory Orders Smoking Cessation: Smoking cessation has been advised. For more information, call the [place] Tobacco Quit Line at 5-924-KRDF-NOW. - Mobility Orders Ambulate (WBAT with walker) - Rehabiliation Orders Rehab Potential: Fair - Treatments List/Other: Dry dressings daily CERTIFICATION: I certify that the transfer of the above named patient to an Extended Care Facility is necessary for the continuing treatment of the diagnosis listed. The above information is true and accurate reflection of patient's current condition. Confidential - Redisclosure prohibited without a patient's written consent.
[2017-06-23] MEDS: *HR* HYDROcodone/Acet 5/325 mg TABLET PO PRN (18:55)
[2017-06-23] MEDS: traZODone 50 MG TABLET PO SCH (21:24)
[2017-06-24] MEDS: *HR* Enoxaparin 30 MG/0.3 ML SYRINGE SQ SCH (05:10)
[2017-06-24] MEDS: Aspirin Enteric Coated 81 MG Tablet PO SCH (08:12)
[2017-06-24] MEDS: Metoprolol XL (24 HR) Succ 50 MG TAB.ER.24H PO SCH (08:12)
[2017-06-24] MEDS: Isosorbide MONOnitrate (24 HR) 60 MG TAB.ER.24H PO SCH (08:12)
[2017-06-24] MEDS: Insulin LISPRO 300 UNITS/3 ML VIAL SQ SCH ×4 (08:13→12:27)
[2017-06-24] MEDS: Insulin DETEMIR 100 UNIT/ML X5UNITS SQ SCH (08:13)
[2017-06-24] MEDS: Pantoprazole 40 MG VIAL IVP SCH (08:13)
[2017-06-24] MEDS: Gabapentin 300 MG CAPSULE PO SCH (08:13)
[2017-06-24 08:18] LABS: Basophils % 0.2 %; Eosinophils # 0.1 K/mcL (0.0-0.6); Eosinophils % 0.8 %; Hematocrit 26.5 % (35.3-44.9); Hemoglobin 8.8 g/dL (11.5-15.4); Immature Granulocytes % 0.7 % (0-4); Immature Platelets 2.8 % (1.1-6.1); Lymphocytes # 1.1 K/mcL (0.6-4.6); Lymphocytes % 12.9 %; Mean Corpuscular HGB Conc 33.2 g/dL (31.6-35.5); Mean Corpuscular Hemoglobin 29.7 pg (28.0-33.3); Mean Corpuscular Volume 89.5 fL (83.0-100.0); Mean Platelet Volume 10.6 fL (9.4-12.4); Monocytes # 0.9 K/mcL (0.0-1.3); Monocytes % 10.7 %; Neutrophils # 6.2 K/mcL (1.6-8.9); Platelet Count 141 K/mcL (140-400); Red Blood Count 2.96 M/mcL (3.82-4.97); Red Cell Distribution Width 13.9 % (11.5-14.5); Segmented Neutrophils % 74.7 %
[2017-06-24 09:08] LABS: Calcium 8.7 mg/dL (8.6-10.8); Potassium 4.2 mEq/L (3.5-4.5)
--- NOTE | 2017-06-24 09:14 | Discharge Summary ---
Date of Encounter: 06/24/17 Time of Encounter: 08:35 - Discharge Diagnosis (1) Fracture of hip Priority: Primary Status: Acute Qualifiers: Qualified Code(s): S72.002D - Fracture of unspecified part of neck of left femur, subsequent encounter for closed fracture with routine healing (2) Anemia Priority: Secondary Status: Chronic Qualifiers: Qualified Code(s): N18.3 - Chronic kidney disease, stage 3 (moderate); D63.1 - Anemia in chronic kidney disease (3) CAD (coronary artery disease) Priority: Secondary Status: Chronic Qualifiers: Qualified Code(s): I25.810 - Atherosclerosis of coronary artery bypass graft( s) without angina pectoris (4) Chronic kidney disease Priority: Secondary Status: Chronic Qualifiers: Qualified Code(s): N18.3 - Chronic kidney disease, stage 3 (moderate) (5) Diabetes mellitus Priority: Secondary Status: Acute Qualifiers: Qualified Code(s): E11.22 - Type 2 diabetes mellitus with diabetic chronic kidney disease; N18.3 - Chronic kidney disease, stage 3 (moderate); 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 - Discharge Medications Prescriptions: OxyCODONE Immed Rel [Roxicodone 5 MG] 5 mg PO Q4HR PRN #20 tab PRN Reason: Severe Pain 7-10 Enoxaparin [Lovenox] 40 mg SQ DAILY #14 syr Gabapentin [Gralise] 300 mg PO BID #14 tab Home Medications: Aspirin [Adult Low Dose Aspirin EC] 81 mg PO DAILY 02/14/16 [History] Docusate Sodium [Dok] 100 mg PO QAM 02/14/16 [History] Ergocalciferol (VITAMIN D2) [Vitamin D2 (50,000 UNIT)] 50,000 unit PO QWEEK 02/25 [History] Fluticasone Propionate Nasal [Flonase] 1 spray NS DAILY PRN 02/14/16 [History] Furosemide [Lasix] 60 mg PO DAILY 02/14/16 [History] Levothyroxine [Synthroid] 112 mcg PO 0630 02/14/16 [History] Loratadine [Claritin] 10 mg PO DAILY 02/14/16 [History] Nitroglycerin [Nitrostat] 0.4 mg SL Q5M PRN 02/14/16 [History] Clopidogrel [Plavix] 75 mg PO DAILY 01/02/17 [History] Isosorbide MONOnitrate [Isosorbide Mononitrate ER] 120 mg PO DAILY 01/02/17 [ History] Rosuvastatin Calcium [Crestor] 20 mg PO HS 01/02/17 [History] Insulin Lispro Protamin/Lispro [Humalog Mix 75-25 Kwikpen] 20 units SQ QPM 05/23 [History] Insulin Lispro Protamin/Lispro [Humalog Mix 75-25 Kwikpen] 30 unit SQ QAM [History] Acetaminophen [Tylenol] 500 mg PO Q6HR PRN 06/20/17 [History] Ferrous Gluconate 324 mg PO DAILY 06/20/17 [History] Metoprolol XL (24 HR) Succ [Toprol Xl] 50 mg PO BID 06/20/17 [History] traZODone [TraZODone] 50 mg PO HS 06/20/17 [History] Enoxaparin [Lovenox] 40 mg SQ DAILY #14 syr 06/23/17 [Rx] Gabapentin [Gralise] 300 mg PO BID #14 tab 06/24/17 [Rx] OxyCODONE Immed Rel [Roxicodone 5 MG] 5 mg PO Q4HR PRN #20 tab 06/24/17 [Rx] Allergies/Adverse Reactions: Allergies No Known Allergies Allergy (Verified 02/14/16 12:00) Date of admission: 06/21/17 12:23 Primary care physician: Jonny Nieto MD Consults: 06/21/17 15:01 Consult to Occupational Therapy [CONS] Routine Comment: Evaluate, develop and implement POC Reason for Consult: post hip surgery Consult to Orthopedic Navigator [CONS] [CONS] Routine Consult to Physical Therapy [CONS] Routine Comment: Evaluate, develop and implement POC Reason for Consult: post hip surgery Consult to Hvac Residential Service Technician [CONS] Routine Reason for SW Consult: post -op hip fracture RT Post Op Consult [CONS] Routine Discharging clinician: Deann Chaves Anticipated date of discharge: 06/24/17 - Patient Status Disposition: Transfer Inpatient Rehab Fac Condition: Good Functional capacity at discharge: uses cane/walker Overall status at discharge: patient is progressing back to baseline - Discharge Instructions Instructions: Diabetes Mellitus Type 2 in Adults (DC), Anemia (GEN) Follow Up With: Nery Reyes PAC [Physician Service Bar Cashier] - (WEB REQUEST MADE. OFFICE CLOSED ON THE WEEKEND. REQUESTED FOR TWO WEEKS. IN COMMENT STATED WHAT INPATIENT REHAB FACILITY PATIENT WILL BE AT.) Jonny Nieto MD [Primary Care Provider] - (in 1- 2 weeks) - Diet and Activity Activity: as per physical therapy Diet: diabetic diet, low fat, low cholesterol, low salt diet Hospital course: Ms. Pena is a 67 year old female patient with a history of coronary artery disease status post stents on aspirin and Plavix, diabetes mellitus type 2, chronic kidney disease stage III was admitted here following a fall resulting in left hip intertrochanteric femur fracture. She was evaluated by orthopedics and recommended surgery. After cardiac clearance, patient underwent surgery with intraocular medullary nailing on 06/21/17. Since then she she has been recovering well. Patient's hemoglobin levels did drop following surgery and she received 2 units of packed red blood cells. Her hemoglobin levels are much better now. She does have chronic anemia related to chronic kidney disease and follows up with both nephrology and hematology and receives Epogen shots as outpatient. Today her hemoglobin levels were 8.8. She did have acute kidney injury on chronic kidney disease stage III which has since improved. Her diabetes has been managed with Levemir and sliding scale insulin. Presently she has been accepted for discharge to [facility] inpatient rehabilitation and she will be transferred there for rehabilitation. She will follow up with orthopedics 2 weeks after discharge. She will be on Lovenox for DVT prophylaxis. - Time Spent with Patient Total time spent providing and/or coordinating discharge services: Greater than 30 minutes (35 min) - Constitutional Vitals: Temp Pulse Resp BP Pulse Ox 98.7 F 84 16 146/78 96 06/24/17 07:18 06/24/17 07:18 06/24/17 07:18 06/24/17 07:18 06/24/17 07:18 General appearance: Present: cooperative, mild distress, A&O X 3, answers questions appropriately - Respiratory Respiratory exam: Present: CTAB. Absent: accessory muscle use, rales, rhonchi, wheezes - Cardiovascular Cardiovascular exam: Present: RRR, +S1, +S2. Absent: diastolic murmur, gallop, rubs, systolic murmur - GI/Abdominal GI/Abdominal exam: Present: normal bowel sounds, soft, no peritoneal signs. Absent: distended, tenderness - Extremities Exam Extremities exam: Present: tenderness (left hip tenderness), warm, radial pulses palpable and symmetrical. Absent: calf tenderness, cyanotic, pedal edema - Neurological Exam Neurological exam: Present: alert, oriented X3, no focal deficits. Absent: facial droop, speech deficit - VTE Documentation of Mechanical Device: Intermittent pneumatic compression device
[2017-06-24 10:33] VITALS: BP 151/76
[2017-06-24] MEDS: *HR* HYDROcodone/Acet 5/325 mg TABLET PO PRN (12:39)
== END 2017-06-24 13:00 | DRG 481 ==
LOC: EMEROO 14:59 → 3NENU 14:59
PROVIDERS: ADMIT Internal Medicine; ATTEND Internal Medicine

== ENCOUNTER 2017-12-17 08:56 | Inpatient (IN) ==
--- NOTE | 2017-12-16 15:28 | Discharge Summary ---
<Nery Benítez E - Last Filed: 12/16/17 15:25> Date of Encounter: 12/16/17 - Discharge Diagnosis (1) Osteoarthritis of right knee Priority: Primary Status: Acute Qualifiers: Osteoarthritis type: unspecified Qualified Code(s): M17.11 - Unilateral primary osteoarthritis, right knee (2) HTN (hypertension) Priority: Secondary Status: Chronic Qualifiers: Hypertension type: unspecified Qualified Code(s): I10 - Essential (primary ) hypertension (3) Hypothyroidism Priority: Secondary Status: Chronic Qualifiers: Hypothyroidism type: unspecified Qualified Code(s): E03.9 - Hypothyroidism , unspecified (4) HLD (hyperlipidemia) Priority: Secondary Status: Chronic Qualifiers: Hyperlipidemia type: unspecified Qualified Code(s): E78.5 - Hyperlipidemia , unspecified (5) CAD (coronary artery disease) Priority: Secondary Status: Chronic Qualifiers: Coronary Disease-Associated Artery/Lesion type: unspecified vessel or lesion type Lummi vs. transplanted heart: unspecified whether [place] or transplanted heart Associated angina: angina presence unspecified Qualified Code(s): I25.10 - Atherosclerotic heart disease of [place] coronary artery without angina pectoris (6) History of coronary artery bypass graft Priority: Secondary Status: Chronic (7) CKD (chronic kidney disease) Priority: Secondary Status: Chronic Qualifiers: Chronic kidney disease stage: stage 3 (moderate) Qualified Code(s): N18.3 - Chronic kidney disease, stage 3 (moderate) (8) Diabetes mellitus Priority: Secondary Status: Chronic Qualifiers: Diabetes mellitus type: type 2 Diabetes mellitus complication status: with kidney complications Diabetes mellitus complication detail: with chronic kidney disease Diabetes mellitus oil heaterman insulin use: with correction use Chronic kidney disease stage: stage 3 (moderate) Qualified Code(s): E11.22 - Type 2 diabetes mellitus with diabetic chronic kidney disease; N18.3 - Chronic kidney disease, stage 3 (moderate); N18.3 - Chronic kidney disease, stage 3 ( moderate); 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; Z79.4 - prison ( current) use of insulin; Z79.4 - prison (current) use of insulin; Z79.4 - prison (current) use of insulin (9) Antiplatelet or antithrombotic long-term use Priority: Secondary Status: Chronic - Discharge Medications Home Medications: Aspirin [Adult Low Dose Aspirin EC] 81 mg PO DAILY 02/14/16 [History] Docusate Sodium [Dok] 100 mg PO QAM 02/14/16 [History] Fluticasone Propionate Nasal [Flonase] 1 spray NS DAILY PRN 02/14/16 [History] Furosemide [Lasix] 60 mg PO DAILY 02/14/16 [History] Loratadine [Claritin] 10 mg PO DAILY 02/14/16 [History] Nitroglycerin [Nitrostat] 0.4 mg SL Q5M PRN 02/14/16 [History] Clopidogrel [Plavix] 75 mg PO DAILY 01/02/17 [History] Isosorbide MONOnitrate [Isosorbide Mononitrate ER] 120 mg PO DAILY 01/02/17 [ History] Rosuvastatin Calcium [Crestor] 20 mg PO HS 01/02/17 [History] Insulin Lispro Protamin/Lispro [Humalog Mix 75-25 Kwikpen] 10 - 20 unit SQ QAM 05/23/17 [History] Insulin Lispro Protamin/Lispro [Humalog Mix 75-25 Kwikpen] 20 units SQ QPM 05/23 [History] Acetaminophen [Tylenol] 500 mg PO Q6HR PRN 06/20/17 [History] Ferrous Gluconate 324 mg PO DAILY 06/20/17 [History] Metoprolol XL (24 HR) Succ [Toprol Xl] 50 mg PO DAILY 06/20/17 [History] traZODone [TraZODone] 50 mg PO HS 06/20/17 [History] Gabapentin [Gralise] 300 mg PO BID #14 tab 06/24/17 [Rx] Cholecalciferol (D-3) [Vitamin D] 5,000 unit PO DAILY 07/26/17 [History] Levothyroxine [Synthroid] 125 mcg PO 0630 09/19/17 [History] OxyCODONE Immed Rel [Roxicodone 5 MG] 5 mg PO Q6HR PRN 7 Days #28 tablet [Rx] Allergies/Adverse Reactions: 3 Allergy/AdvReac Type Severity Reaction Status Date / Time No Known Allergies Allergy Verified 12/17/17 09:56 Primary care physician: Jonny Nieto MD - Patient Status Disposition: Home Health Service Condition: Good - Discharge Instructions Follow Up With: Nery Benítez PAC [Physician Hardware Engineer] - 12/27/17 8:30 am Alex Phelps MD [Partnered Physician] - 12/25/17 1:00 pm Additional Instructions: Discharge Instructions: Total Knee Replacement Please call [facility] ([phone]), your Primary Care Physician, or report to the Emergency Room if you have any of the following symptoms: Nausea, vomiting, fever greater that 101.5, swelling, chest pain, shortness of breath, increased pain/redness/drainage/odor for your incision site, numbness/ tingling, or any other concerning symptoms. ACTIVITY:Weight-bearing as tolerated. You may progress off support (crutches or walker) as tolerated. MEDICATIONS: Upon discharge resume your home medications. Take all the medications as prescribed. Take a stool softener if taking narcotic pain medications. Stool softeners are only effective if you drink enough fluids. Drink 6-8 glass of water or fluids a day, unless this is not allowed for another health problem. Despite using stool softeners, if you haven't had a bowel movement in 3 days, please switch to a gentle laxative. Gentle laxatives are sold over the counter. You should have a bowel movement within 24 hours, if not call the office. You will be discharged from the hospital with a prescription for pain medication. You are encouraged to decrease the use of narcotic pain medication as tolerated. Should you require a refill, please call the office. [facility] prescribes narcotic pain medication for only 4-6 weeks after surgery. If you require pain medication beyond this time period, you may be referred to your Primary Care Physician or to the Pain Clinic for further evaluation. Plan ahead for refills on pain medication as many narcotics either need to be picked up at the office or mailed. It is best to call 48-72 hours in advance of needing a prescription refill so you don't run out of medication. To help control the post-operative pain, you may take NSAIDs (Aleve,Advil, Motrin, Ibuprofen, Naprosyn) or Tylenol as prescribed on the bottle in addition to the pain medication. ANTICOAGULATION (blood thinners): Continue your Aspirin, Lovenox or Coumadin as prescribed to help prevent a blood clot in the leg or in the lungs. As long as your incision remains dry and you tolerate the NSAIDs (Aleve, Advil, Motrin, ibuprofen, naprosyn), it is OK to use the NSAIDS while you are taking your anticoagulation medication. Should your incision start to drain, stop the NSAID and contact our office. Common symptoms of blood clot in the legs include: localized pain, swelling, calf tenderness, redness or discoloration of the skin. Blood clot in the lung symptoms include: shortness of breath, rapid pulse, sweating, and chest pain that worsens with deep breathing, coughing up blood, lightheadedness, feelings of anxiety. If you experience any of these symptoms notify your physician immediately, go to the emergency room, or if having trouble breathing, call 911. WOUND CARE: Leave the dressing on for 7 to 10days. You may change the dressing if it becomes saturated greater than 50%. Do not get the dressing wet at anytime. Wash your hands with antibacterial soap, rinse and dry prior to any wound care. If you have syed the visiting nurse or rehab facility can remove the stapes 10-14 days after surgery and place steri-strips across the wound. Leave the steri-strips in place until they fall off on their won. You may let water from the shower run on top of the steri-strips. If you do not have a visiting nurse or rehab facility, you will need to return to the office at 10-14 days for the syed to be removed. If you have itching or redness around the dressing call the office. FOLLOW-UP: Please follow up with your surgeon in the orthopedic clinic in 4 weeks from the day of surgery. If you have syed that need to be removed, you will need to come back to the office in 10-14 days from the day of surgery. - Hospital Course Hospital course: Ms. Pena is a 67 year old female - Time Spent with Patient Total time spent providing and/or coordinating discharge services: <Nando Parrish - Last Filed: 12/21/17 07:51> Date of Encounter: 12/21/17 Time of Encounter: 07:50 - Discharge Diagnosis (1) Chronic kidney disease Priority: Secondary Status: Chronic Qualifiers: Chronic kidney disease stage: stage 3 (moderate) Qualified Code(s): N18.3 - Chronic kidney disease, stage 3 (moderate) (2) Hypothyroidism Priority: Secondary Status: Chronic Qualifiers: Hypothyroidism type: unspecified Qualified Code(s): E03.9 - Hypothyroidism , unspecified (3) CAD (coronary artery disease) Priority: Secondary Status: Chronic Qualifiers: Coronary Disease-Associated Artery/Lesion type: bypass graft [place] vs. transplanted heart: [place] heart Associated angina: without angina Qualified Code(s): I25.810 - Atherosclerosis of coronary artery bypass graft(s) without angina pectoris (4) Diabetes mellitus Priority: Secondary Status: Chronic Qualifiers: Diabetes mellitus type: type 2 Diabetes mellitus complication status: with kidney complications Diabetes mellitus complication detail: with chronic kidney disease Diabetes mellitus correction insulin use: with oil heaterman use Chronic kidney disease stage: stage 3 (moderate) Qualified Code(s): E11.22 - Type 2 diabetes mellitus with diabetic chronic kidney disease; N18.3 - Chronic kidney disease, stage 3 (moderate); N18.3 - Chronic kidney disease, stage 3 ( moderate); 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; Z79.4 - prison ( current) use of insulin; Z79.4 - prison (current) use of insulin; Z79.4 - prison (current) use of insulin (5) Osteoarthritis of right knee Priority: Primary Status: Chronic Qualifiers: Osteoarthritis type: unspecified Qualified Code(s): M17.11 - Unilateral primary osteoarthritis, right knee (6) HTN (hypertension) Priority: Secondary Status: Chronic Qualifiers: Hypertension type: unspecified Qualified Code(s): I10 - Essential (primary ) hypertension (7) Hypothyroidism Priority: Secondary Status: Chronic Qualifiers: Hypothyroidism type: unspecified Qualified Code(s): E03.9 - Hypothyroidism , unspecified (8) HLD (hyperlipidemia) Priority: Secondary Status: Chronic Qualifiers: Hyperlipidemia type: unspecified Qualified Code(s): E78.5 - Hyperlipidemia , unspecified (9) CAD (coronary artery disease) Priority: Secondary Status: Chronic Qualifiers: Coronary Disease-Associated Artery/Lesion type: unspecified vessel or lesion type [place] vs. transplanted heart: unspecified whether [place] or transplanted heart Associated angina: angina presence unspecified Qualified Code(s): I25.10 - Atherosclerotic heart disease of [place] coronary artery without angina pectoris (10) History of coronary artery bypass graft Priority: Secondary Status: Chronic (11) CKD (chronic kidney disease) Priority: Secondary Status: Chronic Qualifiers: Chronic kidney disease stage: stage 3 (moderate) Qualified Code(s): N18.3 - Chronic kidney disease, stage 3 (moderate) (12) Diabetes mellitus Priority: Secondary Status: Chronic Qualifiers: Diabetes mellitus type: type 2 Diabetes mellitus complication status: with kidney complications Diabetes mellitus complication detail: with chronic kidney disease Diabetes mellitus correction insulin use: with oil heaterman use Chronic kidney disease stage: stage 3 (moderate) Qualified Code(s): E11.22 - Type 2 diabetes mellitus with diabetic chronic kidney disease; N18.3 - Chronic kidney disease, stage 3 (moderate); N18.3 - Chronic kidney disease, stage 3 ( moderate); Z79.4 - prison (current) use of insulin; Z79.4 - prison ( current) use of insulin; 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 Pena is a 67 year old female As post right total knee replacement The patient had an uneventful postoperative course. They received antibiotics and physical therapy and were discharged in stable condition. There will follow -up in the office in 2 weeks. - Time Spent with Patient Total time spent providing and/or coordinating discharge services:
--- NOTE | 2017-12-16 16:13 | Physician Discharge Referral ---
Home Health/Hosp Referral Info Transfer to: Home Health Attending Provider: Dr Nando Parrish - Diagnosis (1) Osteoarthritis of right knee Priority: Primary Status: Acute (2) HTN (hypertension) Priority: Secondary Status: Chronic (3) Hypothyroidism Priority: Secondary Status: Chronic (4) HLD (hyperlipidemia) Priority: Secondary Status: Chronic (5) CAD (coronary artery disease) Priority: Secondary Status: Chronic (6) History of coronary artery bypass graft Priority: Secondary Status: Chronic (7) CKD (chronic kidney disease) Priority: Secondary Status: Chronic (8) Diabetes mellitus Priority: Secondary Status: Chronic (9) Antiplatelet or antithrombotic long-term use Priority: Secondary Status: Chronic (10) Status post total right knee replacement Priority: Primary Status: Acute - Respiratory Orders Smoking Cessation: Smoking cessation has been advised. For more information, call the [employer] Quit Line at 4-966-DDXM-NOW. - Dressing/Wound Care Site: right knee Type of Dressing/Treatments w/Frequency: Opsite placed. Keep dressing intact until first follow up appointment. If > 50% saturated, notify office, remove dressing and place appropriate dressing back in place. Leave Zipline intact. Opsite dressing is water resistant, not water- proof. OK to shower, but do not get dressing wet. - Diet/Nutrition Diet/Nutrition Orders: Regular - Activity Activity Orders: Up ad sagrario, Ambulate, Chair, Walker Activity: List: Total Knee replacement Precautions x 6 weeks Apply cold therapy wrap 3-6x/day for 20 minutes at a time. Encourage ambulation throughout the day and incentive spirometer 10x/hour. Elevate affected extremity above heart as tolerated. Brace: Wear knee immobilizer at night x 2 weeks. - Services Needed Following services are medically necessary services: Nursing, Home Health Aide, Physical Therapy, Occupational Therapy - Transfer Medications Prescriptions: OxyCODONE Immed Rel [Roxicodone 5 MG] 5 mg PO Q6HR PRN 7 Days #28 tablet PRN Reason: Severe Pain Home Medications: Aspirin [Adult Low Dose Aspirin EC] 81 mg PO DAILY 02/14/16 [History] Docusate Sodium [Dok] 100 mg PO QAM 02/14/16 [History] Fluticasone Propionate Nasal [Flonase] 1 spray NS DAILY PRN 02/14/16 [History] Furosemide [Lasix] 80 mg PO DAILY 04/04/16 [History] Loratadine [Claritin] 10 mg PO DAILY 02/14/16 [History] Nitroglycerin [Nitrostat] 0.4 mg SL Q5M PRN 02/14/16 [History] Clopidogrel [Plavix] 75 mg PO DAILY 01/02/17 [History] Isosorbide MONOnitrate [Isosorbide Mononitrate ER] 120 mg PO DAILY 01/02/17 [ History] Rosuvastatin Calcium [Crestor] 20 mg PO HS 01/02/17 [History] Insulin Lispro Protamin/Lispro [Humalog Mix 75-25 Kwikpen] 20 units SQ QPM 05/23 [History] Insulin Lispro Protamin/Lispro [Humalog Mix 75-25 Kwikpen] 30 unit SQ QAM [History] Acetaminophen [Tylenol] 500 mg PO Q6HR PRN 06/20/17 [History] Ferrous Gluconate 324 mg PO DAILY 06/20/17 [History] Metoprolol XL (24 HR) Succ [Toprol Xl] 50 mg PO DAILY 06/20/17 [History] traZODone [TraZODone] 50 mg PO HS 06/20/17 [History] Gabapentin [Gralise] 300 mg PO BID #14 tab 06/24/17 [Rx] Cholecalciferol (D-3) [Vitamin D] 5,000 unit PO DAILY 07/26/17 [History] Levothyroxine [Synthroid] 125 mcg PO 0630 09/19/17 [History] OxyCODONE Immed Rel [Roxicodone 5 MG] 5 mg PO Q6HR PRN 7 Days #28 tablet [Rx] Allergies/Adverse Reactions: 3 Allergy/AdvReac Type Severity Reaction Status Date / Time No Known Allergies Allergy Verified 11/19/17 13:23 Certification: Further, I certify that my clinical findings support that this patient is homebound (i.e. absences from home require considerable and taxing effort and are for medical reasons or mu-ism services or infrequently or short duration when for other reasons) because: Homebound Reason: Post-surgery restriction and or conditions limit ability to leave home Attestation: My signature below is to certify that this patient is under my care and that I, or nurse practitioner, or a physician assistant art director working with me, has a face-to- face encounter with this patient.
[2017-12-17] MEDS ORDERED: Vancomycin 1,250 MG in D5% in Water 250 ML IVPB ONE (09:25)
[2017-12-17] MEDS ORDERED: Lidocaine -MPF 1% 2 ML VIAL ID ONE (09:25)
[2017-12-17] MEDS ORDERED: Ringers Solution, Lactated 1,000 ML IVC SCH ×2 (09:30→13:36)
[2017-12-17] MEDS ORDERED: Scopolamine Patch 1.5 MG PATCH.TD72 TD ONE (10:03)
[2017-12-17] MEDS ORDERED: Acetaminophen IV 1,000 MG/100 ML INFUS..BTL IVPB ONE (10:04)
--- NOTE | 2017-12-17 10:04 | Anesthesia Evaluation PreOp ---
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 Campa, who cleared patient since after discussion with patient's PCP - her recent control has been greatly improved and patient has demonstrated this ability to control her blood sugar in the past) Alcohol Use: none Drug use: none Medications and Allergies Aspirin [Adult Low Dose Aspirin EC] 81 mg PO DAILY 02/14/16 [History] Docusate Sodium [Dok] 100 mg PO QAM 02/14/16 [History] Fluticasone Propionate Nasal [Flonase] 1 spray NS DAILY PRN 02/14/16 [History] Furosemide [Lasix] 80 mg PO DAILY 02/14/16 [History] Loratadine [Claritin] 10 mg PO DAILY 02/14/16 [History] Nitroglycerin [Nitrostat] 0.4 mg SL Q5M PRN 02/14/16 [History] Clopidogrel [Plavix] 75 mg PO DAILY 01/02/17 [History] Isosorbide MONOnitrate [Isosorbide Mononitrate ER] 120 mg PO DAILY 01/02/17 [ History] Rosuvastatin Calcium [Crestor] 20 mg PO HS 01/02/17 [History] Insulin Lispro Protamin/Lispro [Humalog Mix 75-25 Kwikpen] 20 units SQ QPM 05/23 [History] Insulin Lispro Protamin/Lispro [Humalog Mix 75-25 Kwikpen] 30 unit SQ QAM [History] Acetaminophen [Tylenol] 500 mg PO Q6HR PRN 06/20/17 [History] Ferrous Gluconate 324 mg PO DAILY 06/20/17 [History] Metoprolol XL (24 HR) Succ [Toprol Xl] 50 mg PO DAILY 06/20/17 [History] traZODone [TraZODone] 50 mg PO HS 06/20/17 [History] Gabapentin [Gralise] 300 mg PO BID #14 tab 06/24/17 [Rx] Cholecalciferol (D-3) [Vitamin D] 5,000 unit PO DAILY 07/26/17 [History] Levothyroxine [Synthroid] 125 mcg PO 0630 09/19/17 [History] OxyCODONE Immed Rel [Roxicodone 5 MG] 5 mg PO Q6HR PRN 7 Days #28 tablet [Rx] 3 Allergy/AdvReac Type Severity Reaction Status Date / Time No Known Allergies Allergy Verified 12/17/17 09:56 - Meds/Allergy Pre-op Review Medications Reviewed: Yes Allergies Reviewed: Yes Beta Blockers on Current Med List: Yes If Beta Blockers taken, Date/Time (Last Dose taken): 12-17-16 metoprolol 6:30 Anesthesia Results - Labs Laboratory Tests 11/14/17 11/19/17 11/19/17 08:30 14:10 14:10 WBC 5.9 Hgb 10.4 L Hct 32.2 L Plt Count 183 PT 10.5 INR 1.0 APTT 22.3 L Sodium 132 L Potassium 5.1 Chloride 96 L Carbon Dioxide 28 BUN 56 H Creatinine 1.69 H Est GFR ( Amer) 37 L Est GFR (Non-Af Amer) 30 L BUN/Creatinine Ratio 33 H Est Mean Plasma Glucose Hemoglobin A1c 11/19/17 14:10 WBC Hgb Hct Plt Count PT INR APTT Sodium Potassium Chloride Carbon Dioxide BUN Creatinine Est GFR ( Amer) Est GFR (Non-Af Amer) BUN/Creatinine Ratio Est Mean Plasma Glucose 315 Hemoglobin A1c 12.6 H - Imaging EKG: report reviewed, image reviewed (SR) Additional studies: 2016 TTE: Impressions: Normal LV systolic function, LVEF 65%. Mild concentric left ventricular hypertrophy. Moderate left ventricular diastolic dysfunction. Normal right ventricular structure and function. Moderately dilated left atrium. No significant valvular dysfunction. No evidence of pulmonary hypertension. Anesthesia Exam Last Vital Signs Temp 97.8 F 12/17/17 09:23 Pulse 81 12/17/17 09:23 Resp 18 12/17/17 09:23 BP 107/67 12/17/17 09:23 Pulse Ox 99 12/17/17 09:23 Weight: 83 kg NPO (# of Hours): > 8 hrs - HEENT Pupil (Motor): Pupils equal, EOMI Mallampati: III Teeth: Normal Oral Opening: Greater than 3 - SOFTWARE DEVELOPER LOC: Oriented SOFTWARE DEVELOPER Motor: Deficit RLE (foot drop) - Cardiac Rhythm: Regular - Pulmonary Breath Sounds: bilateral Clear Respiratory Effort: Symmetrical Anesthesia Assess/Plan ASA Score: 3 Modified Brandon Scale for Level of Consciousness: Cooperative, oriented, and tranquil Anesthetic Plan: General, Regional (fem block -- no sciatic block due to pre- existing foot drop (however IPAC is ok)) Monitoring Plan: Standard Monitors Recovery Plan: PACU
--- NOTE | 2017-12-17 10:27 | History & Physical Report ---
Date of Encounter: 12/17/17 Time of Encounter: 10:27 24 Hour HP Update - Instructions Instructions: If the History and Physical is less than 30 days old and was completed prior to A.M. admission and or procedure and has NOT been updated on calendar day of procedure please complete this update prior to performing procedure. - Update Patient reports changes in Medical Condition: No Changes in examination, assessment, or condition: No Changes in Medication: No Preop tests/diagnostics Reviewed: Yes Surgery Remains Indicated: Yes Consent for Planned Operative Procedure(s) Verified: Yes - Pre-Operative Checklist Preoperative Checklist Indicated: No Prophylactic Antibiotic Ordered: Yes Is VTE Prophylaxis Indicated?: Yes
[2017-12-17] MEDS ORDERED: ROPIVACAINE HCL/PF 0.5% 30 ML VIAL ONE (11:14)
[2017-12-17] MEDS ORDERED: Bupivacaine/Clonidine Syringe 1 EACH SYRINGE ONE (11:15)
[2017-12-17] MEDS ORDERED: Ondansetron 4 MG/2 ML VIAL IVP PRN ×2 (11:37→13:36)
[2017-12-17] MEDS ORDERED: *HR* HYDROmorphone 2 MG TABLET PO PRN (11:37)
[2017-12-17] MEDS ORDERED: *HR* Labetalol 20 MG/4 ML SYRINGE IVP PRN (11:37)
[2017-12-17] MEDS ORDERED: MORPHINE SUL Oral CONC 10 MG/0.5 ML ORAL.SYG SL PRN ×2 (11:37→18:44)
--- NOTE | 2017-12-17 11:37 | Anesthesia Procedures ---
Date of Encounter: 12/17/17 Time of Encounter: 11:34 Procedures: Anesthesia - Nerve Block Procedure Date: 12/17/17 Time: 11:35 Allergies/Adv Reactions: NKDA Pre-op Diagnosis: R knee arthritis Surgical Procedure: R TKA Checklist: Correct Patient Identifier, Correct procedure, History checked Correct side: Right Blood Thinner: No Monitor Applied: EKG, BP, Pulse Oximetry Supplemental Oxygen via Nasal Cannula (L/min): 3 Sedation: Versed (mg): 1 Sedation: Fentanyl (mcg): 50 Indication: Post Op Analgesia (requested by Dr. Parrish) Pre-op Neuro Deficits: No Block Type: Femoral, Other (iPACK) Catheter placed: No Sterile Technique: Yes Ultrasound used: Yes Anatomy identified: Yes Visual spread of Local: Yes Neuro Stimulation: Yes Nerve Stimulator Range: 0.2 - 0.4 mA Blood on Needle Aspiration: No Smooth Injection of Local: Yes Pain with Injection of Local: No Prep: Chlorhexadine Needle: 22 x 50 mm Stimuplex (femoral n. block), 21 x 100 mm Stimuplex (iPACK block) Local: 0.25% Bupivicaine w/Clonidine 20 mcg/cc (20mL for iPACK), Ropivacaine ( 30mL of 0.5% for femoral n. block), Other (4mg dexamethasone for femoral n. block) Number of Attempts: 1 Complications: None/effective block Vitals: please see HUMBERTO Henderson's note under "patient care" for VS entry.
[2017-12-17] MEDS ORDERED: EPHEDrine 50 MG/ML VIAL ONE (12:05)
[2017-12-17] MEDS ORDERED: Ethanol\\Acetic Acid\\Na Ace\\Ben 1,000 ML IRRIG.SOLN IR ONE (12:23)
[2017-12-17] MEDS ORDERED: *HR* Midazolam HCl 2 MG/2 ML VIAL ONE (12:37)
[2017-12-17] MEDS ORDERED: Dexamethasone 4 MG/ML VIAL ONE (12:37)
[2017-12-17] MEDS ORDERED: *HR* Propofol 200 MG/20 ML VIAL IVP ONE (12:37)
[2017-12-17] MEDS ORDERED: *HR* Succinylcholine 200 MG/10 ML VIAL IVP ONE (12:37)
[2017-12-17] MEDS ORDERED: Lidocaine -MPF 2% 2 ML VIAL ONE (12:37)
[2017-12-17] MEDS ORDERED: *HR* FentaNYL (PF) 100 MCG/2 ML VIAL ONE (12:37)
--- NOTE | 2017-12-17 12:37 | Orthopedic Operative Note ---
Date of procedure: 12/17/17 Pre-op diagnosis: Right knee arthritis Post-op diagnosis: same Procedure: Procedure: Right Total knee replacement Estimated blood loss: 300 cc Hardware: Metal and polyethylene replacement. Arthrex Femur: 5 Tibia: 3 PS insert: 13 Patella: 34 Exam Under anesthesia: Loss of full extension 10 degrees full flexion no instability Procedural Notes: Grade 4 arthritic changes medial compartment and patellofemoral joint. Operative procedure: The patient was brought to the operating room and placed on the operating room table. After general anesthesia was administered the operative knee was examined. Findings were noted in the exam under anesthesia. The operative extremity was prepped and draped in sterile surgical fashion. The patient received IV antibiotics prior to skin incision. A standard midline incision was made centered over the patella. The incision was made through the skin and subcutaneous tissue. A medial parapatellar tendon approach was performed. Care was taken to preserve tissue along the medial aspect of the patella. And to protect the patella tendon. The deep MCL was released off the medial tibia. The infra patella fat pad was excised. Knee was brought into flexion. Patient noted to have grade 4 arthritic changes and patellofemoral joint. The entry hole was made for the intramedullary femoral guide. The guide was seated in 6 degrees of valgus. Anterior cut was made followed by the distal cut. The ACL the PCL the medial and the lateral menisci were excised. The tibia was subluxed forward. The entry hole was made for the intramedullary tibial guide. Guide was seated to resect 2 mm off the more abnormal side. The knee was brought into flexion the distal femur was sized to a 5. The femoral guide was seated, the anterior cut was made followed by the posterior condylar cut, followed by the chamfer cuts. The finishing guide was seated the box cut was made and the lug holes were drilled. The tibia was sized to a 3, the tibial tray was seated and prepared with the large drill followed by the fin cutter. Trial reduction revealed full extension no varus valgus instability with the appropriate 13 PS Raina. The patella was everted and cut was made at the level of the insertion of the quadriceps and patella tendon. The patella was sized 34 the guide was seated and the lug holes are drilled. Trial reduction revealed excellent patella tracking. All trial components were removed all bony surfaces were irrigated. The tibia was cemented first followed by the femur. The 13 PS Raina was seated and the knee was brought into full extension. The patella was cemented and held in place with the patellar holding clamp. After the cement had hardened, the knee sat for 2 minutes with a Betadine saline solution. The PA close the knee. The knee was then irrigated out with 2 L of pulse irrigation. The extensor mechanism was closed with #2 FiberWire suture and #2 PDS suture. The subcutaneous tissue was then irrigated and closed deep with #1 PDS suture superficially with 0 PDS suture and skin was closed with skin syed. The patient was then placed in a sterile dressing and a postoperative brace extubated and transferred to recovery room in stable condition. Anesthesia: GETA Surgeon: Nando Parrish Was there an production assistant present: No Estimated blood loss (cc): 300 Condition: stable Disposition: PACU
[2017-12-17 13:32] LABS: Hematocrit 28.9 % (35.3-44.9)
[2017-12-17] MEDS ORDERED: MOM Conc 10 ML UD.LIQ PO PRN (13:36)
[2017-12-17] MEDS ORDERED: Naloxone 0.4 MG/ML INJ IVP PRN (13:36)
[2017-12-17] MEDS ORDERED: Dextrose Gel 15 GM/37.5 ML TUBE PO PRN ×2 (13:36)
[2017-12-17] MEDS ORDERED: Sennosides 8.6 MG TABLET PO PRN (13:36)
[2017-12-17] MEDS ORDERED: Fluticasone Propionate Nasal 50 MCG/SPRAY BOTTLE NS PRN (13:36)
[2017-12-17] MEDS ORDERED: Temazepam 15 MG CAPSULE PO PRN (13:36)
[2017-12-17] MEDS ORDERED: Nitroglycerin 0.4 MG TAB.SUBL SL PRN (13:36)
[2017-12-17] MEDS ORDERED: *HR* Dextrose 50 % in Water (Syg) 50 ML SYRINGE IVP PRN (13:36)
[2017-12-17] MEDS ORDERED: D5% in Water 1,000 ML IVC PRN (13:36)
[2017-12-17] MEDS: CeFAZolin Premix DUPLEX 2,000 MG/50 ML BAG IVPB SCH (16:01)
[2017-12-17] MEDS: Insulin LISPRO 300 UNITS/3 ML VIAL SQ SCH ×2 (17:24→20:39)
[2017-12-17] MEDS ORDERED: *HR* Enoxaparin 30 MG/0.3 ML SYRINGE SQ SCH (18:00)
[2017-12-17] MEDS ORDERED: *HR* OxyCODONE Immed Rel 5 MG TABLET PO PRN (18:43)
[2017-12-17] MEDS: Insulin NPH/REG 70/30 100 UNIT/ML (x5UNIT) SQ SCH (18:44)
[2017-12-17] MEDS: *HR* Enoxaparin 30 MG/0.3 ML SYRINGE SQ SCH (18:44)
[2017-12-17] MEDS: *HR* OxyCODONE Immed Rel 5 MG TABLET PO PRN (18:51)
[2017-12-17] MEDS: Gabapentin 300 MG CAPSULE PO SCH (20:58)
[2017-12-17] MEDS: traZODone 50 MG TABLET PO SCH (20:58)
[2017-12-18] MEDS: CeFAZolin Premix DUPLEX 2,000 MG/50 ML BAG IVPB SCH (00:03)
[2017-12-18] MEDS: *HR* Enoxaparin 30 MG/0.3 ML SYRINGE SQ SCH ×2 (06:19→18:44)
--- NOTE | 2017-12-18 06:57 | Orthopedics Progress Note ---
Date of Encounter: 12/18/17 Time of Encounter: 06:56 - Assessment and Plan (1) Chronic kidney disease Current Visit: No Status: Chronic Qualifiers: Chronic kidney disease stage: stage 3 (moderate) Qualified Code(s): N18.3 - Chronic kidney disease, stage 3 (moderate) (2) Hypothyroidism Current Visit: No Status: Chronic Qualifiers: Hypothyroidism type: unspecified Qualified Code(s): E03.9 - Hypothyroidism , unspecified (3) CAD (coronary artery disease) Current Visit: No Status: Chronic Qualifiers: Coronary Disease-Associated Artery/Lesion type: bypass graft [place] vs. transplanted heart: [place] heart Associated angina: without angina Qualified Code(s): I25.810 - Atherosclerosis of coronary artery bypass graft(s) without angina pectoris (4) Diabetes mellitus Current Visit: No Status: Chronic Qualifiers: Diabetes mellitus type: type 2 Diabetes mellitus complication status: with kidney complications Diabetes mellitus complication detail: with chronic kidney disease Diabetes mellitus intermediate designer insulin use: with intermediate designer use Chronic kidney disease stage: stage 3 (moderate) Qualified Code(s): E11.22 - Type 2 diabetes mellitus with diabetic chronic kidney disease; N18.3 - Chronic kidney disease, stage 3 (moderate); N18.3 - Chronic kidney disease, stage 3 ( moderate); Z79.4 - intermediate designer (current) use of insulin; Z79.4 - [facility] ( current) use of insulin; Z79.4 - intermediate designer (current) use of insulin; Z79.4 - intermediate designer (current) use of insulin (5) Osteoarthritis of right knee Current Visit: No Status: Chronic Qualifiers: Osteoarthritis type: unspecified Qualified Code(s): M17.11 - Unilateral primary osteoarthritis, right knee (6) HTN (hypertension) Current Visit: No Status: Chronic Qualifiers: Hypertension type: unspecified Qualified Code(s): I10 - Essential (primary ) hypertension (7) Hypothyroidism Current Visit: No Status: Chronic Qualifiers: Hypothyroidism type: unspecified Qualified Code(s): E03.9 - Hypothyroidism , unspecified (8) HLD (hyperlipidemia) Current Visit: No Status: Chronic Qualifiers: Hyperlipidemia type: unspecified Qualified Code(s): E78.5 - Hyperlipidemia , unspecified (9) CAD (coronary artery disease) Current Visit: No Status: Chronic Qualifiers: Coronary Disease-Associated Artery/Lesion type: unspecified vessel or lesion type [place] vs. transplanted heart: unspecified whether [place] or transplanted heart Associated angina: angina presence unspecified Qualified Code(s): I25.10 - Atherosclerotic heart disease of [place] coronary artery without angina pectoris (10) History of coronary artery bypass graft Current Visit: No Status: Chronic (11) CKD (chronic kidney disease) Current Visit: No Status: Chronic Qualifiers: Chronic kidney disease stage: stage 3 (moderate) Qualified Code(s): N18.3 - Chronic kidney disease, stage 3 (moderate) (12) Diabetes mellitus Current Visit: No Status: Chronic Qualifiers: Diabetes mellitus type: type 2 Diabetes mellitus complication status: with kidney complications Diabetes mellitus complication detail: with chronic kidney disease Diabetes mellitus [facility] insulin use: with [facility] use Chronic kidney disease stage: stage 3 (moderate) Qualified Code(s): E11.22 - Type 2 diabetes mellitus with diabetic chronic kidney disease; N18.3 - Chronic kidney disease, stage 3 (moderate); N18.3 - Chronic kidney disease, stage 3 ( moderate); Z79.4 - intermediate designer (current) use of insulin; Z79.4 - [facility] ( current) use of insulin; Z79.4 - [facility] (current) use of insulin; Z79.4 - [facility] (current) use of insulin (13) Status post total right knee replacement Current Visit: No Status: Acute (14) Acute blood loss anemia Current Visit: Yes Status: Acute Subjective Interval history: Patient was seen this morning doing well without complaints. Afebrile vital signs stable. Operative extremity: Neurovascularly intact Dressing clean dry and intact Calves nontender Assessment and plan: Continue with postoperative care Hemoglobin 9.0 Objective Vital signs: Vital Signs Temp Pulse Resp BP Pulse Ox 12/18/17 06:31 98.5 F 87 18 138/64 93 12/18/17 04:18 98.5 F 69 16 132/67 97 12/17/17 23:36 98.1 F 72 18 119/68 98 12/17/17 18:47 97.8 F 78 16 126/74 94 12/17/17 15:56 98.2 F 75 16 123/69 97 12/17/17 14:53 97.7 F 74 16 127/74 99 12/17/17 14:20 97.5 F L 70 16 127/65 96 12/17/17 14:01 97.3 F L 71 18 119/74 93 12/17/17 13:35 97.5 F L 71 18 131/63 96 12/17/17 13:25 72 18 131/68 92 12/17/17 13:15 71 16 128/60 92 12/17/17 13:05 99.0 F 71 13 141/62 98 12/17/17 11:40 66 18 127/64 100 12/17/17 11:24 66 18 126/58 99 12/17/17 11:15 65 18 135/96 97 12/17/17 09:23 97.8 F 81 18 107/67 99 Intake and Output 12/17/17 12/17/17 12/18/17 15:59 23:59 07:59 Intake Total 360 / 360 700 / 700 Output Total 400 / 400 250 / 250 0 / 0 Balance -40 / -40 450 / 450 0 / 0 Intake: IV Fluids 50 / 50 Ancef Premix DUPLEX 2,000 mg In 50 / 50 50 ml @ 100 mls/hr IVPB Q8HR MELANIE Rx#:[id number] Oral 360 / 360 650 / 650 Output: Urine 0 / 0 250 / 250 0 / 0 Estimated Blood Loss 400 / 400 Other: Meal Lunch Percent of Meal Consumed 100% # Voids 1 Weight 83.007 kg Blood Glucose* 231 508 270 - Labs CBC & BMP: 12/17/17 13:21 Labs: Abnormal lab results Hgb 9.0 g/dL (11.5-15.4) L 12/17/17 13:21 Hct 28.9 % (35.3-44.9) L 12/17/17 13:21 POC Glucose 161 (58-89) H 12/17/17 09:15 - VTE Documentation of Mechanical Device: Venous foot pump, device Consult Discharge Plan - Plan Referrals: Jonny Nieto MD [Primary Care Provider] -
[2017-12-18 08:06] LABS: Calcium 8.7 mg/dL (8.6-10.3); Potassium 4.6 mEq/L (3.5-5.1)
[2017-12-18 08:11] LABS: Hematocrit 23.8 % (35.3-44.9); Hemoglobin 7.6 g/dL (11.5-15.4)
[2017-12-18] MEDS: Isosorbide MONOnitrate (24 HR) 60 MG TAB.ER.24H PO SCH (09:53)
[2017-12-18] MEDS: Aspirin Enteric Coated 81 MG Tablet PO SCH (09:53)
[2017-12-18] MEDS: Furosemide 40 MG TABLET PO SCH (09:53)
[2017-12-18] MEDS: Cholecalciferol (D-3) 1,000 UNIT TABLET PO SCH (09:53)
[2017-12-18] MEDS: Metoprolol XL (24 HR) Succ 50 MG TAB.ER.24H PO SCH (09:53)
[2017-12-18] MEDS: Loratadine 10 MG TABLET PO SCH (09:54)
[2017-12-18] MEDS: Insulin NPH/REG 70/30 100 UNIT/ML (x5UNIT) SQ SCH ×2 (09:54→18:44)
[2017-12-18] MEDS: Gabapentin 300 MG CAPSULE PO SCH ×2 (09:54→20:54)
[2017-12-18] MEDS: Insulin LISPRO 300 UNITS/3 ML VIAL SQ SCH ×4 (09:55→20:55)
[2017-12-18] MEDS ORDERED: *HR* OxyCODONE Immed Rel 5 MG TABLET PO PRN ×2 (12:02)
[2017-12-18] MEDS ORDERED: 0.9 % Sodium Chloride 250 ML ONE (15:10)
[2017-12-18] MEDS: *HR* OxyCODONE Immed Rel 5 MG TABLET PO PRN (15:47)
[2017-12-18] MEDS: traZODone 50 MG TABLET PO SCH (20:54)
[2017-12-19] MEDS ORDERED: 0.9 % Sodium Chloride 500 ML ONE (01:07)
[2017-12-19] MEDS: *HR* OxyCODONE Immed Rel 5 MG TABLET PO PRN ×2 (02:23→17:13)
[2017-12-19] MEDS: *HR* Enoxaparin 30 MG/0.3 ML SYRINGE SQ SCH (05:08)
[2017-12-19 06:39] LABS: Hemoglobin 9.3 g/dL (11.5-15.4)
[2017-12-19 07:08] LABS: Calcium 8.4 mg/dL (8.6-10.3); Potassium 4.4 mEq/L (3.5-5.1)
[2017-12-19] MEDS: Furosemide 40 MG TABLET PO SCH (08:47)
[2017-12-19] MEDS: Gabapentin 300 MG CAPSULE PO SCH (08:47)
[2017-12-19] MEDS: Cholecalciferol (D-3) 1,000 UNIT TABLET PO SCH (08:48)
[2017-12-19] MEDS: Isosorbide MONOnitrate (24 HR) 60 MG TAB.ER.24H PO SCH (08:48)
[2017-12-19] MEDS: Metoprolol XL (24 HR) Succ 50 MG TAB.ER.24H PO SCH (08:48)
[2017-12-19] MEDS: Loratadine 10 MG TABLET PO SCH (08:48)
[2017-12-19] MEDS: Aspirin Enteric Coated 81 MG Tablet PO SCH (08:48)
--- NOTE | 2017-12-19 08:52 | Orthopedics Progress Note ---
Date of Encounter: 12/19/17 Time of Encounter: 08:52 - Assessment and Plan (1) Chronic kidney disease Current Visit: No Status: Chronic Qualifiers: Chronic kidney disease stage: stage 3 (moderate) Qualified Code(s): N18.3 - Chronic kidney disease, stage 3 (moderate) (2) Hypothyroidism Current Visit: No Status: Chronic Qualifiers: Hypothyroidism type: unspecified Qualified Code(s): E03.9 - Hypothyroidism , unspecified (3) CAD (coronary artery disease) Current Visit: No Status: Chronic Qualifiers: Coronary Disease-Associated Artery/Lesion type: bypass graft [place] vs. transplanted heart: [place] heart Associated angina: without angina Qualified Code(s): I25.810 - Atherosclerosis of coronary artery bypass graft(s) without angina pectoris (4) Diabetes mellitus Current Visit: No Status: Chronic Qualifiers: Diabetes mellitus type: type 2 Diabetes mellitus complication status: with kidney complications Diabetes mellitus complication detail: with chronic kidney disease Diabetes mellitus hairspring inspector insulin use: with custodial use Chronic kidney disease stage: stage 3 (moderate) Qualified Code(s): E11.22 - Type 2 diabetes mellitus with diabetic chronic kidney disease; N18.3 - Chronic kidney disease, stage 3 (moderate); N18.3 - Chronic kidney disease, stage 3 ( moderate); Z79.4 - team sports sales associate (current) use of insulin; Z79.4 - half-way ( current) use of insulin; Z79.4 - team sports sales associate (current) use of insulin; Z79.4 - team sports sales associate (current) use of insulin (5) Osteoarthritis of right knee Current Visit: No Status: Chronic Qualifiers: Osteoarthritis type: unspecified Qualified Code(s): M17.11 - Unilateral primary osteoarthritis, right knee (6) HTN (hypertension) Current Visit: No Status: Chronic Qualifiers: Hypertension type: unspecified Qualified Code(s): I10 - Essential (primary ) hypertension (7) Hypothyroidism Current Visit: No Status: Chronic Qualifiers: Hypothyroidism type: unspecified Qualified Code(s): E03.9 - Hypothyroidism , unspecified (8) HLD (hyperlipidemia) Current Visit: No Status: Chronic Qualifiers: Hyperlipidemia type: unspecified Qualified Code(s): E78.5 - Hyperlipidemia , unspecified (9) CAD (coronary artery disease) Current Visit: No Status: Chronic Qualifiers: Coronary Disease-Associated Artery/Lesion type: unspecified vessel or lesion type [place] vs. transplanted heart: unspecified whether [place] or transplanted heart Associated angina: angina presence unspecified Qualified Code(s): I25.10 - Atherosclerotic heart disease of [place] coronary artery without angina pectoris (10) History of coronary artery bypass graft Current Visit: No Status: Chronic (11) CKD (chronic kidney disease) Current Visit: No Status: Chronic Qualifiers: Chronic kidney disease stage: stage 3 (moderate) Qualified Code(s): N18.3 - Chronic kidney disease, stage 3 (moderate) (12) Diabetes mellitus Current Visit: No Status: Chronic Qualifiers: Diabetes mellitus type: type 2 Diabetes mellitus complication status: with kidney complications Diabetes mellitus complication detail: with chronic kidney disease Diabetes mellitus custodial insulin use: with custodial use Chronic kidney disease stage: stage 3 (moderate) Qualified Code(s): E11.22 - Type 2 diabetes mellitus with diabetic chronic kidney disease; N18.3 - Chronic kidney disease, stage 3 (moderate); N18.3 - Chronic kidney disease, stage 3 ( moderate); Z79.4 - team sports sales associate (current) use of insulin; Z79.4 - half-way ( current) use of insulin; Z79.4 - half-way (current) use of insulin; Z79.4 - half-way (current) use of insulin (13) Status post total right knee replacement Current Visit: No Status: Acute (14) Acute blood loss anemia Current Visit: Yes Status: Acute Subjective Interval history: Patient was seen this morning doing well without complaints. Afebrile vital signs stable. Operative extremity: Neurovascularly intact Dressing clean dry and intact Calves nontender Assessment and plan: Continue with postoperative care Hemoglobin 8.4 Objective Vital signs: Vital Signs Temp Pulse Resp BP Pulse Ox 12/19/17 06:42 99.9 F H 80 18 133/60 92 12/19/17 05:00 99.6 F 75 16 130/75 12/19/17 02:27 99.5 F 102 16 141/65 96 12/19/17 02:12 99.2 F 106 16 153/76 12/19/17 02:07 99.4 F 93 16 181/77 95 12/19/17 01:22 99.4 F 99 18 151/77 93 12/18/17 20:51 99.2 F 84 14 143/65 95 12/18/17 18:37 99.1 F 101 15 122/52 12/18/17 18:20 99.2 F 91 14 166/79 98 12/18/17 15:37 98.1 F 87 16 124/59 12/18/17 15:22 98.6 F 85 16 99/56 12/18/17 11:02 98.1 F 86 20 157/73 95 12/18/17 10:08 93 Intake and Output 12/18/17 12/19/17 12/19/17 23:59 07:59 15:59 Intake Total 590 / 590 350 / 350 Output Total 700 / 700 Balance 590 / 590 350 / 350 -700 / -700 Intake: Oral 240 / 240 Blood Product 350 / 350 350 / 350 Rbcs Leuko Poor As-1 Unit 350 / 350 [id number] Rbcs Leuko Poor As-1 Unit 350 / 350 [id number] Output: Urine 700 / 700 Other: Meal Dinner Percent of Meal Consumed 55% Blood Glucose* 64 142 - Labs CBC & BMP: 12/19/17 06:08 12/19/17 06:08 Labs: Abnormal lab results Hgb 9.3 g/dL (11.5-15.4) L D 12/19/17 06:08 Hct 28.0 % (35.3-44.9) L 12/19/17 06:08 BUN 55 mg/dL (8-23) H 12/19/17 06:08 Creatinine 1.32 mg/dL (0.60-1.20) H 12/19/17 06:08 Est GFR ( Amer) 49 (> 60) L 12/19/17 06:08 Est GFR (Non-Af Amer) 40 (> 60) L 12/19/17 06:08 BUN/Creatinine Ratio 42 (6-26) H 12/19/17 06:08 Glucose 140 mg/dL (70-105) H 12/19/17 06:08 POC Glucose 142 (58-89) H 12/19/17 06:45 Calcium 8.4 mg/dL (8.6-10.3) L 12/19/17 06:08 - VTE Documentation of Mechanical Device: Venous foot pump, device Consult Discharge Plan - Plan Referrals: Jonny Nieto MD [Primary Care Provider] -
[2017-12-19] MEDS: Insulin LISPRO 300 UNITS/3 ML VIAL SQ SCH ×2 (09:09→12:24)
[2017-12-19] MEDS: Insulin NPH/REG 70/30 100 UNIT/ML (x5UNIT) SQ SCH (09:10)
[2017-12-19 16:33] VITALS: BP 165/71
--- NOTE | 2017-12-19 16:53 | Event Note ---
Date of Encounter: 12/19/17 Time of Encounter: 11:50 PCR- POD#2 Right Total knee replacement 12/17/17 PCR - Patient seen at bedside. She is feeling much better today since receiving 2unit RBC yesterday. Labs: H/H - 9.3/28.0 Pain control: Adequate Participating in PT. All questions and concerns addressed. Educated on use of incentive spirometer, ambulation, and hydration. Patient educated on post-operative restrictions and care. Addressed: see above. D/C plan: Home with home therapy either today or tomorrow
== END 2017-12-19 17:30 | disposition home health service (06) | DRG 470 ==
LOC: SAMDAY 08:56 → 3NENU 13:35
PROVIDERS: ADMIT Orthopaedic Surgery; ATTEND Orthopaedic Surgery

== ENCOUNTER 2017-12-27 10:23 | Observation (INO) ==
[2017-12-27 11:34] LABS: Basophils % 0.6 %; Eosinophils # 0.1 K/mcL (0.0-0.6); Eosinophils % 1.2 %; Hematocrit 29.6 % (35.3-44.9); Lymphocytes # 1.1 K/mcL (0.6-4.6); Lymphocytes % 16.4 %; Mean Corpuscular HGB Conc 30.4 g/dL (31.6-35.5); Mean Corpuscular Hemoglobin 28.7 pg (28.0-33.3); Mean Corpuscular Volume 94.3 fL (83.0-100.0); Mean Platelet Volume 9.6 fL (9.4-12.4); Monocytes # 0.6 K/mcL (0.0-1.3); Monocytes % 8.5 %; Platelet Count 285 K/mcL (140-400); Red Blood Count 3.14 M/mcL (3.82-4.97); Red Cell Distribution Width 13.5 % (11.5-14.5); Segmented Neutrophils % 72.3 %
--- NOTE | 2017-12-27 12:03 | Emergency Department Note ---
Disposition Clinical Impression: Weakness Disposition: Admitted As Inpatient Condition: Good Time of Disposition: 14:19 General Adult HPI - General Chief complaint: ED Extremity Problem,Nontraumatic Stated complaint: Blood clot in R/Knee maybe Time Seen by Provider: 12/27/17 10:33 Source: patient Mode of arrival: ambulatory Limitations: no limitations Nursing Notes Reviewed: Yes Vital Signs Reviewed: Yes - History of Present Illness HPI Narrative: 67-year-old female with significant past medical history of recent injury 10 days ago, chronic kidney disease, CHF, recent CABG in 2016 presenting to the emergency Department chief complaint of hypotension and possible blood clot. Patient was seen in her physician's office today and blood pressure readings were in the 80s systolic. Physician was concerned and sent her here for further evaluation. Patient recently had right knee replacement surgery. Patient states this morning she woke up and she felt dizzy as if the room was spinning. She felt faint and flushed. She denies any syncope. She states she is no dizziness at this time but still feeling faint and diaphoretic. She was seen at her physician's office they were concerned for possible blood clot because of unilateral right lower leg swelling. They took her blood pressure and it was low and sent her here for further evaluation. Patient denies any chest pain or shortness of breath. She denies any fevers or recent illnesses. Pain Scale: 8 - Related Data Home Medications Medication Instructions Recorded Confirmed Aspirin [Adult Low Dose Aspirin EC] 81 mg PO DAILY 02/14/16 12/27/17 Docusate Sodium [Dok] 100 mg PO QAM 02/14/16 12/27/17 Fluticasone Propionate Nasal 1 spray NS DAILY PRN 02/14/16 12/27/17 [Flonase] Furosemide [Lasix] 60 mg PO DAILY 02/14/16 12/27/17 Loratadine [Claritin] 10 mg PO DAILY 02/14/16 12/27/17 Nitroglycerin [Nitrostat] 0.4 mg SL Q5M PRN 02/14/16 12/27/17 Clopidogrel [Plavix] 75 mg PO DAILY 01/02/17 12/27/17 Isosorbide MONOnitrate [Isosorbide 120 mg PO DAILY 01/02/17 12/27/17 Mononitrate ER] Rosuvastatin Calcium [Crestor] 20 mg PO HS 01/02/17 12/27/17 Insulin Lispro Protamin/Lispro 10 - 20 unit SQ QAM 05/23/17 12/27/17 [Humalog Mix 75-25 Kwikpen] Insulin Lispro Protamin/Lispro 20 units SQ QPM 05/23/17 12/27/17 [Humalog Mix 75-25 Kwikpen] Acetaminophen [Tylenol] 500 mg PO Q6HR PRN 06/20/17 12/27/17 Ferrous Gluconate 324 mg PO DAILY 06/20/17 12/27/17 Metoprolol XL (24 HR) Succ [Toprol 50 mg PO DAILY 06/20/17 12/27/17 Xl] Cholecalciferol (D-3) [Vitamin D] 5,000 unit PO DAILY 07/26/17 12/27/17 Levothyroxine [Synthroid] 125 mcg PO 0630 09/19/17 12/27/17 Gabapentin [Neurontin] 300 mg PO BID 12/27/17 12/27/17 Trazodone HCl 100 mg PO HS 12/27/17 12/27/17 Previous Rx's Medication Instructions Recorded OxyCODONE Immed Rel [Roxicodone 5 5 mg PO Q6HR PRN 7 Days #28 tablet 12/16/17 MG] Allergies Allergy/AdvReac Type Severity Reaction Status Date / Time No Known Allergies Allergy Verified 12/17/17 09:56 All systems ED: reviewed and negative except as stated. Constitutional: Reports: weakness. Denies: fever, chills Cardiovascular: Denies: chest pain, palpitations Respiratory: Denies: cough, dyspnea, wheezes Gastrointestinal: Denies: abdominal pain, nausea, vomiting Neurological: Reports: weakness. Denies: numbness, paresthesias Endocrine: Reports: fatigue Past Medical History - Past Medical History Attestation: Yes The following information was validated with the patient. Medical history: Reports: CHF, coronary artery disease, CVA, diabetes, hyperlipidemia, hypertension, myocardial infarction, renal disease, thyroid disease Surgical history: Reports: coronary bypass (CABG), other Psychiatric history: Reports: no psych history SCANNING MANAGER history: Reports: no SCANNING MANAGER history - Social History Smoking Status: Former smoker Smokeless Tobacco Status: No Alcohol use: Reports: none Drug use: Reports: none Physical Exam - General Limitations: no limitations General appearance: alert, in no apparent distress - Head Head exam: atraumatic, normocephalic, normal inspection - Eye Eye exam: Present: normal appearance. Absent: scleral icterus, conjunctival injection - Neck Neck exam: Present: normal inspection, full ROM. Absent: tenderness, meningismus - Chest Chest inspection: Present: normal inspection, symmetric chest wall rise. Absent : tenderness, rash - Respiratory Respiratory exam: Present: normal lung sounds bilaterally. Absent: respiratory distress, wheezes - Cardiovascular Cardiovascular exam: Present: regular rate, normal rhythm, normal heart sounds - Abdominal Exam Abdominal exam: Present: soft, Non-Tender. Absent: distention, guarding, rebound - Extremities Exam Extremities exam: Present: other (Right knee with dressing over it. Unilateral right lower extremity swelling. No redness or discharge from the surgical site. ) - Neurological Exam Neurological exam: Present: alert, oriented X3 - Psychiatric Psychiatric exam: Present: normal affect, normal mood - Skin Skin exam: Present: warm, dry Course Course Narrative: 67-year-old female presenting to the emergency department for hypotension and unilateral leg swelling. Was seen at Dr. Lopes's office today and transferred here for further evaluation. Patient had some dizziness and diaphoresis upon awakening today. Apparently at Dr. Lopes's office she also complained of substernal chest pain. Patient is alert and oriented 3 in the room with stable vital signs at this time. Blood pressure 125 systolic here. Patient does have unilateral right lower extremity swelling to the surgical site looks like it is healing well. We will obtain a VQ scan due to previous chest pain in the other physician's office along with right lower extremity Doppler and basic labs. Patient agrees to this plan. Disposition most likely admission but pending results. - Reevaluation(s) Reevaluation #1: Patient's labs shows anemia with hemoglobin of 9 and chronic kidney disease. Doppler and VQ scan negative for blood clot. Patient still weak at this time. She is alert and oriented 3 and room with stable vital signs are her stay. At this time we will admit the patient for weakness. Patient agrees with this plan. I spoke with the hospitalist Dr. Nelson who agrees to accept the patient. Vital Signs Temperature 98.2 F 12/27/17 10:25 Pulse Rate 80 12/27/17 10:25 Respiratory Rate 18 12/27/17 10:25 Blood Pressure 120/59 12/27/17 10:25 O2 Sat by Pulse Oximetry 97 12/27/17 10:25 Temperature 98.2 F 12/27/17 10:25 Pulse Rate 75 12/27/17 14:59 Respiratory Rate 14 12/27/17 14:59 Blood Pressure 119/65 12/27/17 14:59 O2 Sat by Pulse Oximetry 95 12/27/17 14:59 Oxygen Delivery Oxygen Delivery Room Air Medical Decision Making - Lab Data Result diagrams: 12/27/17 11:24 12/27/17 10:59 Lab Results 12/27/17 12/27/17 12/27/17 Range/Units 10:40 10:59 10:59 WBC (4.3-11.1) K/mcL RBC (3.82-4.97) M/mcL Hgb (11.5-15.4) g/dL Hct (35.3-44.9) % MCV (83.0-100.0) fL MCH (28.0-33.3) pg MCHC (31.6-35.5) g/dL RDW (11.5-14.5) % Plt Count (140-400) K/mcL MPV (9.4-12.4) fL Immature Gran % (0-4) % Seg Neutrophils % % Lymphocytes % % Monocytes % % Eosinophils % % Basophils % % Neutrophils # (1.6-8.9) K/mcL Lymphocytes # (0.6-4.6) K/mcL Monocytes # (0.0-1.3) K/mcL Eosinophils # (0.0-0.6) K/mcL Basophils # (0.0-0.2) K/mcL Sodium 140 (136-145) mEq/L Potassium 4.3 (3.5-5.1) mEq/L Chloride 104 (98-107) mEq/L Carbon Dioxide 26 (23-29) mEq/L BUN 63 H (8-23) mg/dL Creatinine 1.48 H (0.60-1.20) mg/dL Est GFR ( Amer) 43 L (> 60) Est GFR (Non-Af Amer) 35 L (> 60) BUN/Creatinine Ratio 43 H (6-26) Glucose 252 H (70-105) mg/dL POC Glucose 253 H (58-89) Calculated Osmolality 317 H (280-300) Calcium 9.5 (8.6-10.3) mg/dL Troponin I < 0.03 (< 0.04) ng/mL 12/27/17 Range/Units 11:24 WBC 6.8 (4.3-11.1) K/mcL RBC 3.14 L (3.82-4.97) M/mcL Hgb 9.0 L (11.5-15.4) g/dL Hct 29.6 L (35.3-44.9) % MCV 94.3 (83.0-100.0) fL MCH 28.7 (28.0-33.3) pg MCHC 30.4 L (31.6-35.5) g/dL RDW 13.5 (11.5-14.5) % Plt Count 285 (140-400) K/mcL MPV 9.6 (9.4-12.4) fL Immature Gran % 1.0 (0-4) % Seg Neutrophils % 72.3 % Lymphocytes % 16.4 % Monocytes % 8.5 % Eosinophils % 1.2 % Basophils % 0.6 % Neutrophils # 5.0 (1.6-8.9) K/mcL Lymphocytes # 1.1 (0.6-4.6) K/mcL Monocytes # 0.6 (0.0-1.3) K/mcL Eosinophils # 0.1 (0.0-0.6) K/mcL Basophils # 0.0 (0.0-0.2) K/mcL Sodium (136-145) mEq/L Potassium (3.5-5.1) mEq/L Chloride (98-107) mEq/L Carbon Dioxide (23-29) mEq/L BUN (8-23) mg/dL Creatinine (0.60-1.20) mg/dL Est GFR ( Amer) (> 60) Est GFR (Non-Af Amer) (> 60) BUN/Creatinine Ratio (6-26) Glucose (70-105) mg/dL POC Glucose (58-89) Calculated Osmolality (280-300) Calcium (8.6-10.3) mg/dL Troponin I (< 0.04) ng/mL - EKG Data EKG #1 EKG attestation: Yes I reviewed and interpreted this EKG. EKG results narrative: Sinus rhythm. 74 bpm. OR interval 147, QRS 78, QTC 431. No signs of acute ST segment elevation or ischemia noted. Attestation Statement - Attestation Attestation: I, Edmund Gilliam, examined this patient and my medical decision-making was reviewed with the ENTERPRISE PROJECT MANAGER/PA/Advanced Practice Nurse/Resident Physician. I agree with the documented findings, disposition and treatment plan as described except to the extent set forth below. 67-year-old female presents emergency Department with concerns of hypotension, weakness, fatigue, lightheadedness and to rule out PE. Patient had recent right knee surgery performed by Dr. Parrish, she has a history of anemia and is followed by hematology, Dr. Lopes. Patient saw both of these physicians today and had hypotension in the office with a systolic blood pressure of 80. Patient had tenderness and swelling of the right lower extremity which was concerning for DVT. Ultrasound of the right lower extremity was negative for DVT. VQ scan was low likelihood for PE. Patient will be admitted to the hospital for further care and evaluation of her weakness and lightheadedness.
[2017-12-27 12:41] LABS: Calcium 9.5 mg/dL (8.6-10.3); Potassium 4.3 mEq/L (3.5-5.1)
[2017-12-27] MEDS ORDERED: Ondansetron 4 MG/2 ML VIAL IVP ONE (14:06)
[2017-12-27] MEDS ORDERED: Naloxone 0.4 MG/ML INJ IVP PRN (15:23)
[2017-12-27 15:37] LABS: Bilirubin,Urine Negative (Negative); Blood,Urine Trace (Negative); Clarity,Urine Clear (Clear); Color,Urine Yellow (Yellow); Glucose,Urine (UA) Normal (Normal); Ketones,Urine Negative (Negative); Leukocyte Esterase,Urine Negative (Negative); Nitrite,Urine Negative (Negative); Protein,Urine Negative (Neg-Trace); Specific Gravity,Urine 1.014 (1.010-1.025); Urobilinogen,Urine Normal (Normal)
[2017-12-27] MEDS ORDERED: Ondansetron 4 MG/2 ML VIAL IVP PRN (15:37)
[2017-12-27 15:40] LABS: Bacteria,Urine None Seen per hpf (None-Few); Hyaline Casts,Urine None Seen per lpf (None-Few); RBC,Urine 0-3 per hpf (0-3); Squamous Epithelial Cell,Urine Many per lpf (None-Few); WBC,Urine 0-3 per hpf (0-3)
--- NOTE | 2017-12-27 15:46 | Internal Med History&Physical ---
Date of Encounter: 12/27/17 Time of Encounter: 15:44 Assessment and Plan (1) Dizziness Current visit: Yes Status: Acute The patient describes symptoms are consistent with both vertigo as well as syncope. Will admit the patient and rule out posterior circulation CVA. We will check a CT head. Check orthostatics. Check TSH. Check iron studies. Trend cardiac enzymes. Keep patient on telemetry. (2) Weakness Current visit: Yes Status: Acute Unclear etiology. Rule out CVA. Check workup as above. The patient anemia is around baseline. (3) Anemia Current visit: No Status: Chronic Iron deficiency anemia. She is beyond baseline. We will keep her on iron pills. Check iron studies. Qualifiers: Anemia type: iron deficiency Iron deficiency anemia type: unspecified iron deficiency Qualified Code(s): D50.9 - Iron deficiency anemia, unspecified (4) Chronic kidney disease Current visit: No Status: Chronic Stable. Continue to monitor. Qualifiers: Chronic kidney disease stage: stage 3 (moderate) Qualified Code(s): N18.3 - Chronic kidney disease, stage 3 (moderate) (5) Diabetes mellitus Current visit: No Status: Chronic The patient on insulin sliding scale. We will give her 10 units of Levemir tonight. Continue with Accu-Chek Qualifiers: Diabetes mellitus type: type 2 Diabetes mellitus complication status: without complication Diabetes mellitus intermediate teacher insulin use: with shelter use Qualified Code(s): E11.9 - Type 2 diabetes mellitus without complications ; Z79.4 - correction (current) use of insulin; Z79.4 - correction (current) use of insulin; Z79.4 - long term (current) use of insulin; Z79.4 - long term ( current) use of insulin (6) HTN (hypertension) Current visit: No Status: Chronic Patient apparently was hypotensive initially. She is actually hypertensive now. Monitor. We will add hydralazine to be used when necessary. Continue metoprolol. Qualifiers: Hypertension type: essential hypertension Qualified Code(s): I10 - Essential (primary) hypertension (7) History of coronary artery bypass graft Current visit: No Status: Chronic Continue aspirin and Plavix statin and beta mirtha. Patient is also on Imdur. (8) Hypothyroidism Current visit: No Status: Chronic Continue levothyroxine home dose. Qualifiers: Hypothyroidism type: unspecified Qualified Code(s): E03.9 - Hypothyroidism , unspecified (9) DVT prophylaxis Current visit: Yes Status: Acute (Heparin subcutaneous Internal Medicine - H&P: HPI Chief complaint: Weakness Admitted From: Home Plans for Post Hospital Care: Home History of present illness: Ms. 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 The patient was earlier in the days seen by orthopedic doctors for follow-up regarding her right total knee arthroplasty which was no issues. After that she had an appointment with her parts room associate regarding anemia. She says she woke up she has been feeling weak and dizziness. She describes dizziness at that point systolic spinning sensation of the room however at times she feels that she fears about to faint with diaphoresis. She also feels weak in her lower extremities but knows numbness or tingling. She mentioned those symptoms to her parts room associate and they checked her blood pressure and apparently her systolic was in the 80s she was sent to the ED where her systolic blood pressure was in the 120s and been consistently normal or even elevated at times. While in the ED she says her symptoms did improve somewhat start enteric noticed that her speech was slower than asked her and this is normal and he told me that this is unlike her. She is alert and oriented and is able to follow commands and answers question appropriately. She has a history of a CVA about 4 years ago. This has left her with some residual right upper extremity weakness which has not changed today. She denies any fever or chills headache chest pain abdominal pain shortness of breath. Her symptoms. She does report diaphoresis and weakness nausea and dizziness. The patient is readmitted for weakness and dizziness. EKG was checked with no concerning findings. Her laboratory workup was mostly unremarkable. Initially there was a concern regarding lower extremity DVTs or PE as there was a mention of some discrepancies and swelling in the lower extremities and DVT was ruled out. She underwent a VQ scan given her kidney function which came back with a low probability for PE. Past Med Surg Social Fam HX - Past Medical History Medical history: CHF, coronary artery disease, CVA, diabetes, hyperlipidemia, hypertension, myocardial infarction, renal disease, thyroid disease Psychiatric history: no psych history - Past Surgical History Surgical History: coronary bypass (CABG), other - Social History Smoking Status: Former smoker Smokeless Tobacco Status: No Alcohol use: none Drug use: none - Family History Mother Hx Family Cardiac Disorders: Yes (heart disease) Hx Family Endocrine Disorder: Yes (diabetes) Father Living Status: Still Living Hx Family Neuromuscular Disorders: (stroke) Internal Medicine - H&P: Meds Aspirin [Adult Low Dose Aspirin EC] 81 mg PO DAILY 02/14/16 [History] Docusate Sodium [Dok] 100 mg PO QAM 02/14/16 [History] Fluticasone Propionate Nasal [Flonase] 1 spray NS DAILY PRN 02/14/16 [History] Furosemide [Lasix] 60 mg PO DAILY 02/14/16 [History] Loratadine [Claritin] 10 mg PO DAILY 02/14/16 [History] Nitroglycerin [Nitrostat] 0.4 mg SL Q5M PRN 02/14/16 [History] Clopidogrel [Plavix] 75 mg PO DAILY 01/02/17 [History] Isosorbide MONOnitrate [Isosorbide Mononitrate ER] 120 mg PO DAILY 01/02/17 [ History] Rosuvastatin Calcium [Crestor] 20 mg PO HS 01/02/17 [History] Insulin Lispro Protamin/Lispro [Humalog Mix 75-25 Kwikpen] 10 - 20 unit SQ QAM 05/23/17 [History] Insulin Lispro Protamin/Lispro [Humalog Mix 75-25 Kwikpen] 20 units SQ QPM 05/23 [History] Acetaminophen [Tylenol] 500 mg PO Q6HR PRN 06/20/17 [History] Ferrous Gluconate 324 mg PO DAILY 06/20/17 [History] Metoprolol XL (24 HR) Succ [Toprol Xl] 50 mg PO DAILY 06/20/17 [History] Cholecalciferol (D-3) [Vitamin D] 5,000 unit PO DAILY 07/26/17 [History] Levothyroxine [Synthroid] 125 mcg PO 0630 09/19/17 [History] OxyCODONE Immed Rel [Roxicodone 5 MG] 5 mg PO Q6HR PRN 7 Days #28 tablet [Rx] Gabapentin [Neurontin] 300 mg PO BID 12/27/17 [History] Trazodone HCl 100 mg PO HS 12/27/17 [History] 3 Allergy/AdvReac Type Severity Reaction Status Date / Time No Known Allergies Allergy Verified 12/17/17 09:56 All Systems PM: A 10-system review of systems was performed and is negative for pertinent findings except as documented above in the HPI. Review of systems: All systems reviewed are negative except for what is mentioned in history of present illness - Constitutional Vitals: Temp Pulse Resp BP Pulse Ox 98.2 F 75 14 119/65 95 12/27/17 10:25 12/27/17 14:59 12/27/17 14:59 12/27/17 14:59 12/27/17 14:59 Exam: GEN: NAD HEENT: AT, NC, No cyanosis, oral mucosa is moist, No JVD Lymphatics: No lymphadenoapthy Eyes: Extrocular muscles intact, anicteric CVS:RRR. S1, S2, No m/r/g RESP: CTAB ABD: Soft, NT, ND, +BS EXT: No edema, No rashes, 2+ DP NEURO: Her speech is slowed. CN II-XII intact, the patient does have weakness in her bilateral lower extremities but said her strength is about 4 out of 5 bilaterally. In her upper extremities her strength is 5 out of 5 on the right and 5 out of 5 on the left. motor or sensory deficits Psych: Cooperative, Not anxious or depressed Internal Med - H&P Results - Labs CBC & Chem 7: 12/27/17 11:24 12/27/17 10:59 Labs: Urine 12/27/17 Range/Units 14:53 Urine Color Yellow (Yellow) Urine Clarity Clear (Clear) Urine pH 6.0 (5.0-8.0) pH Units Ur Specific [place] 1.014 (1.010-1.025) Urine Protein Negative (Neg-Trace) mg/dL Urine Glucose (UA) Normal (Normal) mg/dL
[2017-12-27] MEDS ORDERED: *HR* Dextrose 50 % in Water (Syg) 50 ML SYRINGE IVP PRN (15:50)
[2017-12-27] MEDS ORDERED: Dextrose Gel 15 GM/37.5 ML TUBE PO PRN ×2 (15:50)
[2017-12-27] MEDS ORDERED: D5% in Water 1,000 ML IVC PRN (15:50)
[2017-12-27] MEDS ORDERED: Fluticasone Propionate Nasal 50 MCG/SPRAY BOTTLE NS PRN (15:51)
[2017-12-27] MEDS ORDERED: *HR* OxyCODONE Immed Rel 5 MG TABLET PO PRN (15:51)
[2017-12-27 18:35] LABS: % Iron Saturation 17 % (15-50); Iron 36 mcg/dL (50-170); Transferrin 155 mg/dL (203-362)
[2017-12-27 18:40] LABS: Vitamin B12 557 pg/mL (250-1100)
[2017-12-27 19:07] LABS: Ferritin 520 ng/ml (10-120)
[2017-12-27 19:20] LABS: Folate > 22.3 ng/mL (3.0-16.0)
[2017-12-27] MEDS: Insulin LISPRO 300 UNITS/3 ML VIAL SQ SCH ×2 (21:24→21:32)
[2017-12-27] MEDS: traZODone 50 MG TABLET PO SCH (21:31)
[2017-12-27] MEDS: Gabapentin 300 MG CAPSULE PO SCH (21:31)
[2017-12-27] MEDS: *HR* Heparin 5,000 UNIT/ML VIAL SQ SCH (21:31)
[2017-12-27] MEDS: Insulin DETEMIR 100 UNIT/ML X5UNITS SQ SCH (23:23)
[2017-12-28 03:56] LABS: Basophils % 0.6 %; Hematocrit 27.9 % (35.3-44.9); Hemoglobin 8.6 g/dL (11.5-15.4); Lymphocytes # 1.2 K/mcL (0.6-4.6); Lymphocytes % 19.6 %; Mean Corpuscular HGB Conc 30.8 g/dL (31.6-35.5); Mean Corpuscular Hemoglobin 28.6 pg (28.0-33.3); Mean Corpuscular Volume 92.7 fL (83.0-100.0); Mean Platelet Volume 10.3 fL (9.4-12.4); Monocytes # 0.6 K/mcL (0.0-1.3); Monocytes % 8.9 %; Neutrophils # 4.3 K/mcL (1.6-8.9); Platelet Count 307 K/mcL (140-400); Red Blood Count 3.01 M/mcL (3.82-4.97); Red Cell Distribution Width 13.6 % (11.5-14.5); Segmented Neutrophils % 69.9 %
[2017-12-28 04:22] LABS: Calcium 9.2 mg/dL (8.6-10.3); Magnesium 2.4 mg/dL (1.6-2.6); Potassium 3.8 mEq/L (3.5-5.1)
[2017-12-28] MEDS: *HR* Heparin 5,000 UNIT/ML VIAL SQ SCH ×3 (06:57→20:53)
[2017-12-28] MEDS ORDERED: 0.9 % Sodium Chloride 1,000 ML IVC SCH (08:00)
--- NOTE | 2017-12-28 10:20 | Electrocardiograph Report ---
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
[2017-12-28] MEDS: Isosorbide MONOnitrate (24 HR) 60 MG TAB.ER.24H PO SCH (10:24)
[2017-12-28] MEDS: Gabapentin 300 MG CAPSULE PO SCH ×2 (10:24→20:53)
[2017-12-28] MEDS: Loratadine 10 MG TABLET PO SCH (10:25)
[2017-12-28] MEDS: Cholecalciferol (D-3) 1,000 UNIT TABLET PO SCH (10:25)
[2017-12-28] MEDS: Metoprolol XL (24 HR) Succ 50 MG TAB.ER.24H PO SCH (10:25)
[2017-12-28] MEDS: Insulin LISPRO 300 UNITS/3 ML VIAL SQ SCH ×4 (10:25→21:13)
[2017-12-28] MEDS: Aspirin Enteric Coated 81 MG Tablet PO SCH (10:25)
[2017-12-28] MEDS: Furosemide 40 MG TABLET PO SCH (10:35)
--- NOTE | 2017-12-28 15:11 | Internal Med Progress Note ---
Date of Encounter: 12/28/17 Time of Encounter: 07:30 - Assessment and plan (1) Dizziness Current Visit: Yes Status: Acute Assessment and plan: Likely stemming from hypotension and orthostasis. We will continue with IV fluids for the day. We will check orthostatics every shift. If needed we can add Florinef. (2) Weakness Current Visit: Yes Status: Acute Assessment and plan: Likely secondary to above. CT head and MRI brain was negative. (3) Anemia Current Visit: No Status: Chronic Assessment and plan: Iron deficiency anemia. Around baseline. Continue iron pills. Qualifiers: Anemia type: iron deficiency Iron deficiency anemia type: unspecified iron deficiency Qualified Code(s): D50.9 - Iron deficiency anemia, unspecified (4) Chronic kidney disease Current Visit: No Status: Chronic Assessment and plan: Improved with IV fluids. We will continue IV fluids. Avoid nephrotoxins. Qualifiers: Chronic kidney disease stage: stage 3 (moderate) Qualified Code(s): N18.3 - Chronic kidney disease, stage 3 (moderate) (5) Diabetes mellitus Current Visit: No Status: Chronic Assessment and plan: Continue insulin sliding scale. Glucose is elevated. We will give her 20 units of Levemir tonight. Continue Accu-Cheks. Qualifiers: Diabetes mellitus type: type 2 Diabetes mellitus complication status: without complication Diabetes mellitus terminal block assembler insulin use: with [facility] use Qualified Code(s): E11.9 - Type 2 diabetes mellitus without complications ; Z79.4 - senior care (current) use of insulin; Z79.4 - senior care (current) use of insulin; Z79.4 - senior care (current) use of insulin; Z79.4 - senior care ( current) use of insulin (6) HTN (hypertension) Current Visit: No Status: Chronic Assessment and plan: Continue metoprolol. Qualifiers: Hypertension type: essential hypertension Qualified Code(s): I10 - Essential (primary) hypertension (7) History of coronary artery bypass graft Current Visit: No Status: Chronic Assessment and plan: Continue aspirin and Plavix and beta mirtha. She is also on statin. Also on Imdur. (8) Hypothyroidism Current Visit: No Status: Chronic Assessment and plan: Continue levothyroxine. Qualifiers: Hypothyroidism type: unspecified Qualified Code(s): E03.9 - Hypothyroidism , unspecified (9) DVT prophylaxis Current Visit: Yes Status: Acute Assessment and plan: Heparin subcutaneous - Subjective Interval history: Menarche events. The patient was seen and examined. She is afebrile. She continues to feel dizzy however she somewhat improved. Found to be orthostatic. 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 CT head was unremarkable. MRI brain was negative. - Constitutional Vitals: Temp Pulse Resp BP Pulse Ox 98.2 F 87 16 91/53 97 12/28/17 15:07 12/28/17 15:07 12/28/17 15:07 12/28/17 15:07 12/28/17 15:07 Exam: GEN: NAD CVS: RRR. S1, S2, No m/r/g RESP: CTAB ABD: Soft, NT, ND, +BS EXT: No edema. 2+ DP. No rashes NEURO: Nonfocal Internal Medicine: Result - Labs CBC & Chem 7: 12/28/17 03:32 12/28/17 03:32 Labs: Short CBC 12/28/17 Range/Units 03:32 WBC 6.2 (4.3-11.1) K/mcL Hgb 8.6 L (11.5-15.4) g/dL Hct 27.9 L (35.3-44.9) % Plt Count 307 (140-400) K/mcL Neutrophils # 4.3 (1.6-8.9) K/mcL BMP 12/28/17 03:32 Sodium 139 Potassium 3.8 Chloride 104 Carbon Dioxide 26 BUN 61 H Creatinine 1.28 H Glucose 203 H Calcium 9.2 Cardiac Enzymes 12/27/17 12/28/17 12/28/17 Range/Units 17:10 00:00 03:32 Troponin I < 0.03 < 0.03 0.03 (< 0.04) ng/mL Urine 12/27/17 Range/Units 14:53 Urine Color Yellow (Yellow) Urine Clarity Clear (Clear) Urine pH 6.0 (5.0-8.0) pH Units Ur Specific [place] 1.014 (1.010-1.025) Urine Protein Negative (Neg-Trace) mg/dL Urine Glucose (UA) Normal (Normal) mg/dL - Impressions Impressions Head CT 12/27/17 15:22 IMPRESSION: No acute intracranial abnormality. D/ / Kenny Grey MD / Kenny Grey MD Interpreting Provider: Kenny Grey MD Brain MRI 12/27/17 16:08 IMPRESSION: Minimal small-vessel ischemic changes. No acute infarct, mass or hemorrhage. Subtle heterogeneous signal in the proximal/medial aspect of the right internal auditory canal on axial T2 image 10. This is likely volume averaging and/or artifact. D/ / Fermin Dupont / Fermin Dupont Interpreting Provider: Fermin Dupont Consult Discharge Plan - Plan Referrals: Jonny Nieto MD [Primary Care Provider] -
--- NOTE | 2017-12-28 17:21 | Event Note ---
Date of Encounter: 12/28/17 Time of Encounter: 12:35 S/P - Right Total knee replacement 12/17/17 Patient admitted for dehydration and feeling dizzy. checked on patient today and she is feeling better. States therapy did work with her while in hospital stay and she feels she is improving in her ROM. No concerns with her incision. healing appropriately. All questions and concerns answered. Will keep appt in [facility] office next week for wound check.
[2017-12-28] MEDS: traZODone 50 MG TABLET PO SCH (20:53)
[2017-12-28] MEDS ORDERED: Insulin DETEMIR 100 UNIT/ML X5UNITS SQ SCH (21:00)
[2017-12-28] MEDS: Insulin DETEMIR 100 UNIT/ML X5UNITS SQ SCH (21:14)
[2017-12-29 03:22] LABS: Basophils # 0.1 K/mcL (0.0-0.2); Basophils % 0.7 %; Eosinophils # 0.4 K/mcL (0.0-0.6); Eosinophils % 5.2 %; Hematocrit 28.1 % (35.3-44.9); Hemoglobin 8.8 g/dL (11.5-15.4); Immature Granulocytes % 1.2 % (0-4); Lymphocytes # 2.3 K/mcL (0.6-4.6); Lymphocytes % 34.5 %; Mean Corpuscular HGB Conc 31.3 g/dL (31.6-35.5); Mean Corpuscular Hemoglobin 28.9 pg (28.0-33.3); Mean Corpuscular Volume 92.4 fL (83.0-100.0); Mean Platelet Volume 9.7 fL (9.4-12.4); Monocytes # 0.6 K/mcL (0.0-1.3); Monocytes % 8.7 %; Neutrophils # 3.4 K/mcL (1.6-8.9); Platelet Count 281 K/mcL (140-400); Red Blood Count 3.04 M/mcL (3.82-4.97); Red Cell Distribution Width 13.3 % (11.5-14.5); Segmented Neutrophils % 49.7 %
[2017-12-29 03:42] LABS: Calcium 8.5 mg/dL (8.6-10.3); Potassium 4.4 mEq/L (3.5-5.1)
[2017-12-29] MEDS: *HR* Heparin 5,000 UNIT/ML VIAL SQ SCH (06:30)
[2017-12-29 07:24] VITALS: BP 132/77
--- NOTE | 2017-12-29 07:38 | Discharge Summary ---
Date of Encounter: 12/29/17 Time of Encounter: 07:36 - Discharge Diagnosis (1) Dizziness Priority: Primary Status: Acute (2) Weakness Priority: Primary Status: Acute (3) Anemia Priority: Secondary Status: Chronic Qualifiers: Anemia type: iron deficiency Iron deficiency anemia type: unspecified iron deficiency Qualified Code(s): D50.9 - Iron deficiency anemia, unspecified (4) Chronic kidney disease Priority: Secondary Status: Chronic Qualifiers: Chronic kidney disease stage: stage 3 (moderate) Qualified Code(s): N18.3 - Chronic kidney disease, stage 3 (moderate) (5) Diabetes mellitus Priority: Secondary Status: Chronic Qualifiers: Diabetes mellitus type: type 2 Diabetes mellitus complication status: without complication 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: with mcfp use Qualified Code(s): E11.9 - Type 2 diabetes mellitus without complications ; 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; Z79.4 - correction (current) use of insulin; 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; Z79.4 - 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 marine 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) use of insulin (6) HTN (hypertension) Priority: Secondary Status: Chronic Qualifiers: Hypertension type: essential hypertension Qualified Code(s): I10 - Essential (primary) hypertension (7) History of coronary artery bypass graft Priority: Secondary Status: Chronic (8) Hypothyroidism Priority: Secondary Status: Chronic Qualifiers: Hypothyroidism type: unspecified Qualified Code(s): E03.9 - Hypothyroidism , unspecified - Discharge Medications Home Medications: Aspirin [Adult Low Dose Aspirin EC] 81 mg PO DAILY 02/14/16 [History] Docusate Sodium [Dok] 100 mg PO QAM 02/14/16 [History] Fluticasone Propionate Nasal [Flonase] 1 spray NS DAILY PRN 02/14/16 [History] Furosemide [Lasix] 60 mg PO DAILY 02/14/16 [History] Loratadine [Claritin] 10 mg PO DAILY 02/14/16 [History] Nitroglycerin [Nitrostat] 0.4 mg SL Q5M PRN 02/14/16 [History] Clopidogrel [Plavix] 75 mg PO DAILY 01/02/17 [History] Isosorbide MONOnitrate [Isosorbide Mononitrate ER] 120 mg PO DAILY 01/02/17 [ History] Rosuvastatin Calcium [Crestor] 20 mg PO HS 01/02/17 [History] Insulin Lispro Protamin/Lispro [Humalog Mix 75-25 Kwikpen] 10 - 20 unit SQ QAM 05/23/17 [History] Insulin Lispro Protamin/Lispro [Humalog Mix 75-25 Kwikpen] 20 units SQ QPM 05/23 [History] Acetaminophen [Tylenol] 500 mg PO Q6HR PRN 06/20/17 [History] Ferrous Gluconate 324 mg PO DAILY 06/20/17 [History] Metoprolol XL (24 HR) Succ [Toprol Xl] 50 mg PO DAILY 06/20/17 [History] Cholecalciferol (D-3) [Vitamin D] 5,000 unit PO DAILY 07/26/17 [History] Levothyroxine [Synthroid] 125 mcg PO 0630 09/19/17 [History] OxyCODONE Immed Rel [Roxicodone 5 MG] 5 mg PO Q6HR PRN 7 Days #28 tablet [Rx] Gabapentin [Neurontin] 300 mg PO BID 12/27/17 [History] Trazodone HCl 100 mg PO HS 12/27/17 [History] Allergies/Adverse Reactions: 3 Allergy/AdvReac Type Severity Reaction Status Date / Time No Known Allergies Allergy Verified 12/17/17 09:56 Procedures/tests Complete & Pending: Procedures Performed prior 72 hours Category Date Time Status CT head/brain wo con [CT] Stat Cat Scan 12/27/17 15:22 Completed MR head/brain wo con [MR] Stat MRI 12/27/17 16:08 Completed EV echocardiogram Routine Y 12/28/17 07:49 Completed Date of admission: 12/27/17 14:36 Primary care physician: Jonny Nieto MD Consults: 12/27/17 15:21 Consult to Occupational Therapy [CONS] Routine Comment: Evaluate, develop and implement POC Reason for Consult: therapy/placement needs Consult to Physical Therapy [CONS] Routine Comment: Evaluate, develop and implement POC Reason for Consult: PT eval 12/27/17 18:15 Consult to Greens Picker [CONS] Routine Reason for SW Consult: CURRENT HOME HEALTH [facility]OUGH [facility] - Patient Status Disposition: Home, Self-Care Condition: Fair Overall status at discharge: patient is progressing back to baseline - Discharge Instructions Follow Up With: Jonny Nieto MD [Primary Care Provider] - Additional Instructions: Follow-up appointments: If there is not an appointment listed below, please call your physician and schedule a follow-up appointment. If you have congestive heart failure and your symptoms return, make an appointment with your physician. Medication List: Carry an up to date list of medications you are taking at all time. We have given you an updated medication list including any new medications that you have been prescribed. Please provide that list to your primary provider Symptoms: If your condition changes or you experience any of the following symptoms, notify your physician immediately: Unusual or worsening pain, fever, persistent nausea and vomiting, bleeding, increase in swelling (especially in your legs), sudden weight gain, extreme dizziness, chest pain, increased drainage or redness from a wound or incision. Go to the emergency department if you experience a problem with breathing. Weights: If you have a history of swelling or shortness of breath, weigh yourself daily and notify your physician if you have a weight gain of two or more pounds in one day or 5 or more pounds in a week. If you experience any of the warning signs for stroke: Sudden numbness or weakness of the face, arm or leg; especially on one side of the body, sudden confusion, trouble speaking or understanding, sudden trouble seeing in one or both eyes, sudden trouble walking, dizziness, loss of balance or coordination, sudden sever headache with no cause; Call 911 or go to the emergency room. Stroke is a medical emergency. Some risk factors for stroke: Age, cigarette smoking, diabetes, excessive alcohol consumption, family history , high blood pressure, overweight, physical inactivity, prior stroke, heart attack, diagnosis of carotid artery stenosis or other artery disease. If you smoke, STOP: Smoking or tobacco use significantly increases your risk of heart and lung disease. Your chance of disease greatly increases if you continue to smoke. For more information, call the [place] tobacco quit line for smoking cessation QUIT-NOW ( ) - Diet and Activity Activity: increase activity as tolerated Diet: diabetic diet, low salt diet Hospital course: Ms. Pena is a 67 year old female with significant past medical history of recent right total knee arthroplasty, chronic kidney disease3, CHF, recent CABG in 2016 , iron deficiency anemia, hypothyroidism, who was sent here from her coater associate's office due to hypotension and feeling weak and dizzy. The patient was earlier in the day seen by her orthopedic doctor for follow-up regarding her right total knee arthroplasty which with no issues. After that she had an appointment with her coater associate regarding anemia. She stated that she woke up and she has been feeling weak and dizziness. She mentioned those symptoms to her coater associate and they checked her blood pressure and apparently her systolic was in the 80s she was sent to the ED where her systolic blood pressure was in the 120s and been consistently normal or even elevated at times. While in the ED she second her symptoms did improve somewhat and her noticed that her speech was slower than usual. CT head was done and was negative. This was followed by an MRI of brain which was negative as well. EKG was checked with no concerning findings. Her laboratory workup was mostly unremarkable. Initially there was a concern regarding lower extremity DVTs or PE as there was a mention of some swelling in the lower extremities and DVT was ruled out. She underwent a VQ scan given her kidney function which came back with a low probability for PE. The patient was admitted to the hospitalist service. She had some mild elevation in creatinine. She was found to have orthostatic pressure. She was hydrated for the next couple days gently. She felt better by the third day. He was discharged home on 12/29 and encouraged to increase her by mouth intake. - Time Spent with Patient Total time spent providing and/or coordinating discharge services: Greater than 30 minutes - Constitutional Vitals: Temp Pulse Resp BP Pulse Ox 98.2 F 74 16 132/77 94 12/29/17 07:18 12/29/17 07:18 12/29/17 07:18 12/29/17 07:18 12/29/17 07:18 Exam: GEN: NAD CVS: RRR. S1, S2, No m/r/g RESP: CTAB ABD: Soft, NT, ND, +BS EXT: No edema. 2+ DP. No rashes NEURO: Nonfocal
[2017-12-29] MEDS: Insulin LISPRO 300 UNITS/3 ML VIAL SQ SCH ×2 (07:51→12:37)
[2017-12-29] MEDS: Furosemide 40 MG TABLET PO SCH (08:24)
[2017-12-29] MEDS: Metoprolol XL (24 HR) Succ 50 MG TAB.ER.24H PO SCH (08:25)
[2017-12-29] MEDS: Aspirin Enteric Coated 81 MG Tablet PO SCH (08:25)
[2017-12-29] MEDS: Cholecalciferol (D-3) 1,000 UNIT TABLET PO SCH (08:25)
[2017-12-29] MEDS: Loratadine 10 MG TABLET PO SCH (08:25)
[2017-12-29] MEDS: Isosorbide MONOnitrate (24 HR) 60 MG TAB.ER.24H PO SCH (08:25)
[2017-12-29] MEDS: Gabapentin 300 MG CAPSULE PO SCH (08:26)
--- NOTE | 2017-12-29 11:25 | Physician Discharge Referral ---
Home Health/Hosp Referral Info Transfer to: Home Health - Diagnosis (1) Dizziness Priority: Primary Status: Acute (2) Weakness Priority: Primary Status: Acute (3) Anemia Priority: Secondary Status: Chronic (4) Chronic kidney disease Priority: Secondary Status: Chronic (5) Diabetes mellitus Priority: Secondary Status: Chronic (6) HTN (hypertension) Priority: Secondary Status: Chronic (7) History of coronary artery bypass graft Priority: Secondary Status: Chronic (8) Hypothyroidism Priority: Secondary Status: Chronic - Respiratory Orders Smoking Cessation: Smoking cessation has been advised. For more information, call the [place] Tobacco Quit Line at 1-995-AMMONOW. - Services Needed Following services are medically necessary services: Nursing, Home Health Aide, Physical Therapy, Occupational Therapy - Transfer Medications Home Medications: Aspirin [Adult Low Dose Aspirin EC] 81 mg PO DAILY 02/14/16 [History] Docusate Sodium [Dok] 100 mg PO QAM 02/14/16 [History] Fluticasone Propionate Nasal [Flonase] 1 spray NS DAILY PRN 02/14/16 [History] Furosemide [Lasix] 60 mg PO DAILY 02/14/16 [History] Loratadine [Claritin] 10 mg PO DAILY 02/14/16 [History] Nitroglycerin [Nitrostat] 0.4 mg SL Q5M PRN 02/14/16 [History] Clopidogrel [Plavix] 75 mg PO DAILY 01/02/17 [History] Isosorbide MONOnitrate [Isosorbide Mononitrate ER] 120 mg PO DAILY 01/02/17 [ History] Rosuvastatin Calcium [Crestor] 20 mg PO HS 01/02/17 [History] Insulin Lispro Protamin/Lispro [Humalog Mix 75-25 Kwikpen] 10 - 20 unit SQ QAM 05/23/17 [History] Insulin Lispro Protamin/Lispro [Humalog Mix 75-25 Kwikpen] 20 units SQ QPM 05/23 [History] Acetaminophen [Tylenol] 500 mg PO Q6HR PRN 06/20/17 [History] Ferrous Gluconate 324 mg PO DAILY 06/20/17 [History] Metoprolol XL (24 HR) Succ [Toprol Xl] 50 mg PO DAILY 06/20/17 [History] Cholecalciferol (D-3) [Vitamin D] 5,000 unit PO DAILY 07/26/17 [History] Levothyroxine [Synthroid] 125 mcg PO 0630 09/19/17 [History] OxyCODONE Immed Rel [Roxicodone 5 MG] 5 mg PO Q6HR PRN 7 Days #28 tablet [Rx] Gabapentin [Neurontin] 300 mg PO BID 12/27/17 [History] Trazodone HCl 100 mg PO HS 12/27/17 [History] Allergies/Adverse Reactions: 3 Allergy/AdvReac Type Severity Reaction Status Date / Time No Known Allergies Allergy Verified 12/17/17 09:56 Certification: Further, I certify that my clinical findings support that this patient is homebound (i.e. absences from home require considerable and taxing effort and are for medical reasons or bahai services or infrequently or short duration when for other reasons) because: Homebound Reason: Patient requires assistance of a person or device to safely leave home Attestation: My signature below is to certify that this patient is under my care and that I, or nurse practitioner, or a physician's payroll and benefits assistant working with me, has a face-to -face encounter with this patient.
== END 2017-12-29 12:38 | disposition home or self-care (01) ==
LOC: EMEROO 10:23 → 2SOUTHHOLD 10:23 → 3NENU 17:54
PROVIDERS: ADMIT Internal Medicine; ATTEND Registered Nurse

== ENCOUNTER 2019-11-24 09:10 | Observation (INO) ==
[2019-11-24 10:11] LABS: Basophils % 0.5 %; Eosinophils # 0.2 K/mcL (0.0-0.6); Hematocrit 32.7 % (35.3-44.9); Hemoglobin 10.7 g/dL (11.5-15.4); Immature Granulocytes % 0.5 % (0-4); Lymphocytes # 1.5 K/mcL (0.6-4.6); Lymphocytes % 24.7 %; Mean Corpuscular HGB Conc 32.7 g/dL (31.6-35.5); Mean Corpuscular Hemoglobin 30.9 pg (28.0-33.3); Mean Corpuscular Volume 94.5 fL (83.0-100.0); Mean Platelet Volume 10.7 fL (9.4-12.4); Monocytes # 0.4 K/mcL (0.0-1.3); Neutrophils # 3.8 K/mcL (1.6-8.9); Platelet Count 159 K/mcL (140-400); Red Blood Count 3.46 M/mcL (3.82-4.97); Red Cell Distribution Width 13.4 % (11.5-14.5); Segmented Neutrophils % 63.3 %
[2019-11-24 10:17] LABS: Prothrombin Time 11.5 Seconds (9.4-12.1)
[2019-11-24 10:19] LABS: Activated Partial Thrombo Time 27.2 Seconds (26.0-36.0)
[2019-11-24 10:25] LABS: BUN/Creatinine Ratio 29 (6-26); Blood Urea Nitrogen 57 mg/dL (8-23); Calcium 9.6 mg/dL (8.6-10.3); Carbon Dioxide 28 mEq/L (23-29); Chloride 98 mEq/L (98-107); Glucose 356 mg/dL (70-105); Osmolality,Calculated 310 (280-300); Potassium 4.8 mEq/L (3.5-5.1); Sodium 135 mEq/L (136-145); Troponin I < 0.03 ng/mL (< 0.04); eGFR For African Americans 30 (> 60); eGFR For Non-African Americans 25 (> 60)
[2019-11-24] MEDS ORDERED: 0.9 % Sodium Chloride 1,000 ML IVC ONE (10:48)
[2019-11-24 10:57] LABS: Bilirubin,Urine Negative (Negative); Blood,Urine Negative (Negative); Clarity,Urine Cloudy (Clear); Color,Urine Yellow (Yellow); Glucose,Urine (UA) >=1000 mg/dL (Normal); Ketones,Urine Negative (Negative); Leukocyte Esterase,Urine Moderate (Negative); Nitrite,Urine Negative (Negative); Protein,Urine 30 mg/dL (Neg-Trace); Specific Gravity,Urine 1.023 (1.010-1.025); Urobilinogen,Urine Normal (Normal)
[2019-11-24 10:59] LABS: Bacteria,Urine Few per hpf (None-Few); Hyaline Casts,Urine None Seen per lpf (None-Few); RBC,Urine 0-3 per hpf (0-3); Squamous Epithelial Cell,Urine Many per lpf (None-Few); WBC,Urine 50-100 per hpf (0-3)
[2019-11-24] MEDS ORDERED: Ondansetron 4 MG/2 ML VIAL IVP PRN (11:59)
[2019-11-24] MEDS ORDERED: Acetaminophen 325 MG TABLET PO PRN (11:59)
[2019-11-24] MEDS ORDERED: Naloxone 0.4 MG/ML INJ IVP PRN (11:59)
[2019-11-24] MEDS ORDERED: Nitroglycerin 0.4 MG TAB.SUBL SL PRN (12:05)
[2019-11-24] MEDS ORDERED: Dextrose Gel 15 GM/37.5 ML TUBE PO PRN ×2 (13:26)
[2019-11-24] MEDS ORDERED: *HR* Dextrose 50 % in Water (Syg) 50 ML SYRINGE IVP PRN (13:26)
[2019-11-24] MEDS ORDERED: D5% in Water 1,000 ML IVC PRN (13:26)
[2019-11-24] MEDS: Aspirin Enteric Coated 81 MG Tablet PO SCH (14:00)
[2019-11-24] MEDS: *HR* Heparin 5,000 UNIT/ML VIAL SQ SCH ×2 (14:00→21:22)
[2019-11-24] MEDS: Insulin LISPRO 300 UNITS/3 ML VIAL SQ SCH (15:58)
[2019-11-24] MEDS ORDERED: Insulin DETEMIR 100 UNIT/ML X5UNITS SQ SCH (21:00)
[2019-11-24] MEDS ORDERED: traZODone 50 MG TABLET PO SCH (21:00)
[2019-11-24] MEDS: Gabapentin 300 MG CAPSULE PO SCH (21:22)
[2019-11-25 01:02] LABS: Basophils % 0.5 %; Eosinophils # 0.3 K/mcL (0.0-0.6); Eosinophils % 5.4 %; Hematocrit 31.7 % (35.3-44.9); Hemoglobin 10.3 g/dL (11.5-15.4); Immature Granulocytes % 0.3 % (0-4); Lymphocytes # 1.8 K/mcL (0.6-4.6); Lymphocytes % 31.4 %; Mean Corpuscular HGB Conc 32.5 g/dL (31.6-35.5); Mean Corpuscular Hemoglobin 30.7 pg (28.0-33.3); Mean Corpuscular Volume 94.6 fL (83.0-100.0); Mean Platelet Volume 10.9 fL (9.4-12.4); Monocytes # 0.4 K/mcL (0.0-1.3); Monocytes % 7.3 %; Neutrophils # 3.2 K/mcL (1.6-8.9); Platelet Count 155 K/mcL (140-400); Red Blood Count 3.35 M/mcL (3.82-4.97); Red Cell Distribution Width 13.2 % (11.5-14.5); Segmented Neutrophils % 55.1 %; White Blood Count 5.8 K/mcL (4.3-11.1)
[2019-11-25 01:21] LABS: Albumin 3.5 g/dL (3.5-5.7); Albumin/Globulin Ratio 1.1 (1.1-2.2); Bilirubin,Total 0.3 mg/dL (0.3-1.0); Calcium 9.2 mg/dL (8.6-10.3); Globulin 3.2 g/dL (2.4-3.5); Magnesium 2.1 mg/dL (1.6-2.6); Phosphorous 3.5 mg/dL (2.7-4.5); Total Protein 6.7 g/dL (6.4-8.9)
[2019-11-25] MEDS: *HR* Heparin 5,000 UNIT/ML VIAL SQ SCH ×2 (05:54→13:04)
[2019-11-25] MEDS ORDERED: Regadenoson 0.4 MG/5 ML SYRINGE IVP ONE (06:20)
[2019-11-25] MEDS ORDERED: Furosemide 40 MG TABLET PO SCH (09:00)
[2019-11-25] MEDS ORDERED: Isosorbide MONOnitrate (24 HR) 60 MG TAB.ER.24H PO SCH (09:00)
[2019-11-25] MEDS ORDERED: Metoprolol XL (24 HR) Succ 25 MG TAB.ER.24H PO SCH (09:00)
[2019-11-25] MEDS: Insulin LISPRO 300 UNITS/3 ML VIAL SQ SCH ×2 (09:57→12:00)
[2019-11-25] MEDS: Gabapentin 300 MG CAPSULE PO SCH (09:58)
[2019-11-25] MEDS: Aspirin Enteric Coated 81 MG Tablet PO SCH (09:58)
[2019-11-25 11:09] VITALS: BP 98/66
== END 2019-11-25 13:33 | disposition home or self-care (01) ==
LOC: EMEROOARM 09:10 → CDU 09:10
PROVIDERS: ADMIT Internal Medicine; ATTEND Internal Medicine

== ENCOUNTER 2019-12-03 07:42 | Observation (INO) ==
[2019-12-03] MEDS: 0.9 % Sodium Chloride 1,000 ML IVC SCH (08:52)
[2019-12-03] MEDS ORDERED: 0.9 % Sodium Chloride 1,000 ML ONE (10:41)
[2019-12-03] MEDS ORDERED: Heparin 1,000 UNITS/500 mL 500 ML ONE (10:41)
[2019-12-03] MEDS ORDERED: *HR* Heparin 10,000 UNIT/10 ML VIAL ONE (10:41)
[2019-12-03] MEDS ORDERED: ISOVUE-370 200 ML INFUS..BTL ONE (10:42)
[2019-12-03] MEDS ORDERED: Nitroglycerin 1,000 MCG/10 ML VIAL IV ONE (10:42)
[2019-12-03] MEDS ORDERED: *HR* Midazolam HCl 2 MG/2 ML VIAL ONE (10:50)
[2019-12-03] MEDS ORDERED: *HR* FentaNYL (PF) 100 MCG/2 ML VIAL ONE (10:51)
[2019-12-03] MEDS ORDERED: Tirofiban 12.5 MG/250ML 12.5 MG/250 ML BAG ONE (11:37)
[2019-12-03] MEDS ORDERED: Tirofiban 12.5 MG/250ML 12.5 MG/250 ML BAG IVC SCH (12:00)
[2019-12-03] MEDS ORDERED: Ondansetron 4 MG/2 ML VIAL ONE ×2 (12:10→12:20)
[2019-12-03] MEDS ORDERED: *HR* Promethazine 25 MG/ML VIAL ONE (13:23)
[2019-12-03] MEDS ORDERED: *HR* Promethazine 25 MG/ML VIAL IVP ONE ×2 (13:25→13:36)
[2019-12-03 14:29] LABS: Hematocrit 28.4 % (35.3-44.9); Hemoglobin 8.8 g/dL (11.5-15.4); Mean Corpuscular Hemoglobin 30.7 pg (28.0-33.3); Platelet Count 159 K/mcL (140-400); Red Blood Count 2.87 M/mcL (3.82-4.97); Red Cell Distribution Width 13.5 % (11.5-14.5); White Blood Count 5.4 K/mcL (4.3-11.1)
[2019-12-03 16:47] LABS: Hematocrit 28.2 % (35.3-44.9); Hemoglobin 8.9 g/dL (11.5-15.4); Immature Platelets 2.7 % (1.1-6.1); Mean Corpuscular HGB Conc 31.6 g/dL (31.6-35.5); Mean Corpuscular Hemoglobin 31.2 pg (28.0-33.3); Mean Corpuscular Volume 98.9 fL (83.0-100.0); Mean Platelet Volume 10.7 fL (9.4-12.4); Red Blood Count 2.85 M/mcL (3.82-4.97); Red Cell Distribution Width 13.5 % (11.5-14.5); White Blood Count 5.9 K/mcL (4.3-11.1)
[2019-12-03] MEDS: traZODone 50 MG TABLET PO SCH (22:36)
[2019-12-04] MEDS: 0.9 % Sodium Chloride 1,000 ML IVC SCH ×4 (00:08→21:08)
[2019-12-04 04:37] LABS: Hematocrit 25.6 % (35.3-44.9); Hemoglobin 8.1 g/dL (11.5-15.4)
[2019-12-04 04:47] LABS: BUN/Creatinine Ratio 29 (6-26); Blood Urea Nitrogen 38 mg/dL (8-23); eGFR For African Americans 49 (> 60); eGFR For Non-African Americans 40 (> 60)
[2019-12-04] MEDS ORDERED: Nitroglycerin 0.4 MG TAB.SUBL SL PRN (08:29)
[2019-12-04] MEDS ORDERED: FERROUS GLUCONATE 324 MG PO SCH (09:00)
[2019-12-04] MEDS ORDERED: Insulin Regular, Human 100 UNIT/ML SQ SCH (09:00)
[2019-12-04] MEDS ORDERED: Insulin NPH/REG 70/30 100 UNIT/ML (x5UNIT) SQ SCH (09:00)
[2019-12-04] MEDS ORDERED: Insulin NPH 100 UNIT/ML (x5UNIT) SQ SCH (09:00)
[2019-12-04] MEDS: Furosemide 40 MG TABLET PO SCH (09:21)
[2019-12-04] MEDS: Metoprolol XL (24 HR) Succ 25 MG TAB.ER.24H PO SCH (09:21)
[2019-12-04] MEDS: Gabapentin 300 MG CAPSULE PO SCH ×2 (09:21→21:08)
[2019-12-04] MEDS: Isosorbide MONOnitrate (24 HR) 60 MG TAB.ER.24H PO SCH (09:21)
[2019-12-04] MEDS: Aspirin Enteric Coated 81 MG Tablet PO SCH (09:21)
[2019-12-04] MEDS ORDERED: Insulin Human Regular 300 UNIT/3 ML per UNIT SQ SCH (09:30)
[2019-12-04] MEDS: Insulin NPH 100 UNIT/ML (x5UNIT) SQ SCH ×2 (09:43→21:08)
[2019-12-04] MEDS: Insulin Human Regular 300 UNIT/3 ML per UNIT SQ SCH ×3 (09:46→17:10)
[2019-12-04 16:33] LABS: Hematocrit 27.7 % (35.3-44.9); Hemoglobin 8.8 g/dL (11.5-15.4)
[2019-12-04] MEDS ORDERED: SODIUM CHLORIDE/NAHCO3/KCL/PEG 4,000 ML SOLN.RECON PO ONE (17:00)
[2019-12-04] MEDS ORDERED: Loratadine 10 MG TABLET PO SCH (18:00)
[2019-12-04] MEDS ORDERED: traZODone 50 MG TABLET PO SCH (21:00)
[2019-12-04] MEDS: *HR* Dextrose 50 % in Water (Syg) 50 ML SYRINGE IVP PRN (21:04)
[2019-12-04] MEDS: traZODone 50 MG TABLET PO SCH (21:08)
[2019-12-05] MEDS: *HR* Dextrose 50 % in Water (Syg) 50 ML SYRINGE IVP PRN (00:09)
[2019-12-05] MEDS: 0.9 % Sodium Chloride 1,000 ML IVC SCH (05:18)
[2019-12-05] MEDS ORDERED: Propofol 500 MG/50 ML INFUS..BTL ONE (09:17)
[2019-12-05 11:12] LABS: Hematocrit 27.2 % (35.3-44.9); Hemoglobin 8.6 g/dL (11.5-15.4)
[2019-12-05 11:28] VITALS: BP 150/77
[2019-12-05] MEDS: Insulin Human Regular 300 UNIT/3 ML per UNIT SQ SCH (11:32)
[2019-12-05] MEDS: Insulin NPH 100 UNIT/ML (x5UNIT) SQ SCH (11:33)
[2019-12-05] MEDS: Metoprolol XL (24 HR) Succ 25 MG TAB.ER.24H PO SCH (12:16)
[2019-12-05] MEDS: Gabapentin 300 MG CAPSULE PO SCH (12:16)
[2019-12-05] MEDS: Isosorbide MONOnitrate (24 HR) 60 MG TAB.ER.24H PO SCH (12:16)
[2019-12-05] MEDS: Aspirin Enteric Coated 81 MG Tablet PO SCH (12:16)
[2019-12-05] MEDS: Furosemide 40 MG TABLET PO SCH (12:16)
== END 2019-12-05 14:55 | disposition home or self-care (01) ==
LOC: 2NNU 07:42 → INVDIALAB 07:42 → 2NNU 16:22
PROVIDERS: ADMIT Internal Medicine Cardiovascular Disease; ATTEND Internal Medicine Cardiovascular Disease

== ENCOUNTER 2020-05-12 16:41 | Inpatient (IN) ==
[2020-05-12 17:33] LABS: Hematocrit 33.7 % (35.3-44.9); Hemoglobin 11.1 g/dL (11.5-15.4); Mean Corpuscular HGB Conc 32.9 g/dL (31.6-35.5); Mean Corpuscular Hemoglobin 29.4 pg (28.0-33.3); Mean Corpuscular Volume 89.4 fL (83.0-100.0); Mean Platelet Volume 10.7 fL (9.4-12.4); Platelet Count 297 K/mcL (140-400); Red Blood Count 3.77 M/mcL (3.82-4.97); Red Cell Distribution Width 12.6 % (11.5-14.5); White Blood Count 12.6 K/mcL (4.3-11.1)
[2020-05-12 17:53] LABS: Alanine Aminotransferase 5 Units/L (7-52); Albumin 3.5 g/dL (3.5-5.7); Albumin/Globulin Ratio 0.7 (1.1-2.2); Alkaline Phosphatase 87 Units/L (34-104); Aspartate Amino Transferase 9 Units/L (13-39); BUN/Creatinine Ratio 27 (6-26); Bilirubin,Total 0.4 mg/dL (0.3-1.0); Blood Urea Nitrogen 52 mg/dL (8-23); Calcium 9.5 mg/dL (8.6-10.3); Carbon Dioxide 27 mEq/L (23-29); Chloride 87 mEq/L (98-107); Globulin 4.7 g/dL (2.4-3.5); Glucose 479 mg/dL (70-105); Lymphocytes # 1.5 K/mcL (0.6-4.6); Monocytes # 0.4 K/mcL (0.0-1.3); Neutrophils # 10.7 K/mcL (1.6-8.9); Osmolality,Calculated 295 (280-300); Platelet Estimate Normal (Normal); Sodium 125 mEq/L (136-145); Total Protein 8.2 g/dL (6.4-8.9); Troponin I < 0.03 ng/mL (< 0.04); eGFR For African Americans 31 (> 60); eGFR For Non-African Americans 25 (> 60)
[2020-05-12 18:17] LABS: Bacteria,Urine Few per hpf (None-Few); Bilirubin,Urine Negative (Negative); Blood,Urine Small (Negative); Clarity,Urine Turbid (Clear); Color,Urine Light-Yellow (Yellow); Glucose,Urine (UA) >=1000 mg/dL (Normal); Ketones,Urine Negative (Negative); Leukocyte Esterase,Urine Large (Negative); Mucus,Urine Few per lpf (None-Few); Nitrite,Urine Negative (Negative); Protein,Urine 70 mg/dL (Neg-Trace); Specific Gravity,Urine 1.019 (1.010-1.025); Squamous Epithelial Cell,Urine Moderate per hpf (None-Few); Urobilinogen,Urine Normal (Normal); WBC,Urine 50-100 per hpf (0-3)
[2020-05-12] MEDS ORDERED: cefTRIAXone 1,000 MG in 0.9 % Sodium Chloride Mini Bag 100 ML IVPB ONE (18:44)
[2020-05-12] MEDS ORDERED: Ondansetron 4 MG/2 ML VIAL IVP PRN (19:32)
[2020-05-12] MEDS ORDERED: Naloxone 0.4 MG/ML INJ IVP PRN (19:32)
[2020-05-12] MEDS ORDERED: Acetaminophen 325 MG TABLET PO PRN (19:32)
[2020-05-12] MEDS ORDERED: Insulin Human Regular 10 UNIT in 0.9 % Sodium Chloride 10 ML IV ONE (19:37)
[2020-05-12] MEDS ORDERED: D5% in Water 1,000 ML IVC PRN (19:41)
[2020-05-12] MEDS ORDERED: *HR* Dextrose 50 % in Water (Vial) 50 ML VIAL IVP PRN (19:41)
[2020-05-12] MEDS ORDERED: Dextrose Gel 15 GM/37.5 ML TUBE PO PRN ×2 (19:41)
[2020-05-12] MEDS ORDERED: 0.9 % Sodium Chloride 1,000 ML IVC SCH (19:45)
[2020-05-12] MEDS: Insulin DETEMIR 100 UNIT/ML X5UNITS SQ SCH (21:50)
[2020-05-12] MEDS: Insulin LISPRO 300 UNITS/3 ML VIAL SQ SCH (21:55)
[2020-05-13] MEDS: Insulin LISPRO 300 UNITS/3 ML VIAL SQ SCH ×6 (01:54→22:01)
[2020-05-13] MEDS: *HR* Heparin 5,000 UNIT/ML VIAL SQ SCH ×3 (05:28→21:54)
[2020-05-13] MEDS ORDERED: Fluticasone Propionate Nasal 50 MCG/SPRAY BOTTLE NS PRN (05:38)
[2020-05-13] MEDS ORDERED: Nitroglycerin 0.4 MG TAB.SUBL SL PRN (05:38)
[2020-05-13 06:41] LABS: Basophils # 0.1 K/mcL (0.0-0.2); Eosinophils # 0.3 K/mcL (0.0-0.6); Eosinophils % 2.6 %; Hematocrit 33.7 % (35.3-44.9); Hemoglobin 10.8 g/dL (11.5-15.4); Lymphocytes # 1.8 K/mcL (0.6-4.6); Lymphocytes % 16.5 %; Mean Corpuscular Hemoglobin 28.3 pg (28.0-33.3); Mean Corpuscular Volume 88.5 fL (83.0-100.0); Mean Platelet Volume 10.3 fL (9.4-12.4); Monocytes # 0.9 K/mcL (0.0-1.3); Monocytes % 8.6 %; Neutrophils # 7.3 K/mcL (1.6-8.9); Nucleated Red Blood Cells 0.2 /100 WBC (0); Platelet Count 287 K/mcL (140-400); Red Blood Count 3.81 M/mcL (3.82-4.97); Red Cell Distribution Width 12.7 % (11.5-14.5); Segmented Neutrophils % 67.3 %; White Blood Count 10.9 K/mcL (4.3-11.1)
[2020-05-13 07:05] LABS: Albumin/Globulin Ratio 0.7 (1.1-2.2); Bilirubin,Total 0.3 mg/dL (0.3-1.0); Calcium 9.3 mg/dL (8.6-10.3); Globulin 4.3 g/dL (2.4-3.5); Potassium 3.2 mEq/L (3.5-5.1); Total Protein 7.3 g/dL (6.4-8.9)
[2020-05-13] MEDS ORDERED: 0.9 % Sodium Chloride 1,000 ML IVC SCH (07:30)
[2020-05-13] MEDS ORDERED: Perflutren Lipid Microsphere 1.3 ML in 0.9 % Sodium Chloride 8.7 ML IVP ONE (08:44)
[2020-05-13] MEDS ORDERED: Furosemide 40 MG TABLET PO SCH (09:00)
[2020-05-13 09:22] LABS: Thyroid Stimulating Hormone 0.327 mcIU/mL (0.340-5.600)
[2020-05-13] MEDS: Aspirin Enteric Coated 81 MG Tablet PO SCH (10:36)
[2020-05-13] MEDS: cefTRIAXone 1,000 MG in Water for inj. (sterile) 10 ML IVPB SCH (10:36)
[2020-05-13] MEDS: Gabapentin 300 MG CAPSULE PO SCH ×2 (10:36→21:54)
[2020-05-13] MEDS: Isosorbide MONOnitrate (24 HR) 30 MG TAB.ER.24H PO SCH (10:36)
[2020-05-13] MEDS: Cholecalciferol (D-3) 1,000 UNIT (25MCG) TABLET PO SCH (10:37)
[2020-05-13] MEDS: Metoprolol XL (24 HR) Succ 25 MG TAB.ER.24H PO SCH (10:37)
[2020-05-13 10:41] LABS: Triiodothyronine (T3) Total 0.36 ng/mL (0.87-1.78)
[2020-05-13] MEDS ORDERED: Loratadine 10 MG TABLET PO SCH (18:00)
[2020-05-13] MEDS: Insulin DETEMIR 100 UNIT/ML X5UNITS SQ SCH (21:54)
[2020-05-13] MEDS ORDERED: Melatonin 3 MG TABLET PO ONE (23:10)
[2020-05-14 01:54] LABS: Hemoglobin 9.1 g/dL (11.5-15.4); Red Blood Count 3.13 M/mcL (3.82-4.97); White Blood Count 9.1 K/mcL (4.3-11.1)
[2020-05-14 01:55] LABS: Hematocrit 28.5 % (35.3-44.9); Mean Corpuscular HGB Conc 31.9 g/dL (31.6-35.5); Mean Corpuscular Hemoglobin 29.1 pg (28.0-33.3); Mean Corpuscular Volume 91.1 fL (83.0-100.0); Mean Platelet Volume 10.7 fL (9.4-12.4); Platelet Count 281 K/mcL (140-400); Red Cell Distribution Width 12.8 % (11.5-14.5)
[2020-05-14 01:59] LABS: Calcium 8.4 mg/dL (8.6-10.3); Magnesium 2.3 mg/dL (1.6-2.6); Phosphorous 3.1 mg/dL (2.7-4.5)
[2020-05-14 02:25] LABS: Eosinophils # 0.4 K/mcL (0.0-0.6); Large Platelets Present (Not Present); Lymphocytes # 2.6 K/mcL (0.6-4.6); Monocytes # 0.6 K/mcL (0.0-1.3); Neutrophils # 5.5 K/mcL (1.6-8.9); Platelet Estimate Normal (Normal); Toxic Granulation Present (Not Present)
[2020-05-14] MEDS: Insulin LISPRO 300 UNITS/3 ML VIAL SQ SCH ×4 (02:33→11:58)
[2020-05-14] MEDS: *HR* Heparin 5,000 UNIT/ML VIAL SQ SCH ×2 (04:38→13:34)
[2020-05-14] MEDS: Gabapentin 300 MG CAPSULE PO SCH (08:41)
[2020-05-14] MEDS: Aspirin Enteric Coated 81 MG Tablet PO SCH (08:41)
[2020-05-14] MEDS: Metoprolol XL (24 HR) Succ 25 MG TAB.ER.24H PO SCH (08:41)
[2020-05-14] MEDS: Isosorbide MONOnitrate (24 HR) 30 MG TAB.ER.24H PO SCH (08:41)
[2020-05-14] MEDS: cefTRIAXone 1,000 MG in Water for inj. (sterile) 10 ML IVPB SCH (08:42)
[2020-05-14] MEDS: Cholecalciferol (D-3) 1,000 UNIT (25MCG) TABLET PO SCH (08:43)
[2020-05-14] MEDS ORDERED: Perflutren Lipid Microsphere 1.3 ML in 0.9 % Sodium Chloride 8.7 ML IVP ONE ×2 (10:01→11:02)
[2020-05-14] MEDS ORDERED: Furosemide 40 MG TABLET PO SCH (11:45)
[2020-05-14 11:47] VITALS: BP 131/82
== END 2020-05-14 14:14 | disposition home health service (06) | DRG 872 ==
LOC: EMEROOARM 16:41 → 3BNU 16:41 → SUATTDRO 19:53 → 3BNU 20:30
PROVIDERS: ADMIT Internal Medicine; ATTEND Internal Medicine

== ENCOUNTER 2020-08-04 08:57 | Inpatient (IN) ==
[~2020-08-04 08:57] MED LIST: Total Joint Mixture (50 ml) INTRAART ONE
[2020-08-04] MEDS ORDERED: CeFAZolin Syr 2,000MG/20 ML 2,000 MG/20 ML SYRINGE IVPB ONE (09:31)
[2020-08-04] MEDS ORDERED: Ringers Solution, Lactated 1,000 ML IVC SCH ×2 (09:45→15:41)
[2020-08-04] MEDS ORDERED: *HR* Promethazine 25 MG/ML VIAL IVP PRN ×2 (10:17→15:41)
[2020-08-04] MEDS ORDERED: *HR* OxyCODONE Immed Rel 5 MG TABLET PO PRN (10:17)
[2020-08-04] MEDS ORDERED: *HR* HYDROmorphone (PF) 1 MG/ML SYRINGE IVP PRN (10:17)
[2020-08-04] MEDS ORDERED: Pregabalin 75 MG CAPSULE PO ONE (10:17)
[2020-08-04] MEDS ORDERED: *HR* Labetalol 20 MG/4 ML SYRINGE IVP PRN (10:17)
[2020-08-04] MEDS ORDERED: *HR* HYDROmorphone 2 MG TABLET PO PRN (10:17)
[2020-08-04] MEDS ORDERED: Famotidine 20 MG/2 ML VIAL IVP ONE (10:17)
[2020-08-04] MEDS ORDERED: Acetaminophen IV 1,000 MG/100 ML INFUS..BTL IVPB ONE (10:17)
[2020-08-04] MEDS ORDERED: Ondansetron 4 MG/2 ML VIAL ONE (11:05)
[2020-08-04] MEDS ORDERED: Lidocaine -MPF 2% 2 ML VIAL ONE ×2 (11:05→12:05)
[2020-08-04] MEDS ORDERED: Vancomycin 1,000 MG VIAL ONE (11:49)
[2020-08-04] MEDS ORDERED: Ethanol\\Acetic Acid\\Na Ace\\Ben 1,000 ML IRRIG.SOLN IR ONE (11:49)
[2020-08-04] MEDS ORDERED: Dexamethasone 4 MG/ML VIAL ONE (11:58)
[2020-08-04] MEDS ORDERED: *HR* Propofol 200 MG/20 ML VIAL IVP ONE (12:03)
[2020-08-04] MEDS ORDERED: *HR* FentaNYL (PF) 100 MCG/2 ML VIAL ONE (12:03)
[2020-08-04] MEDS ORDERED: *HR* PHENYLEPHRINE 1,000 MCG/10 ML SYRINGE IVP ONE (12:28)
[2020-08-04] MEDS ORDERED: Nitroglycerin 0.4 MG TAB.SUBL SL PRN (15:41)
[2020-08-04] MEDS ORDERED: Sennosides 8.6 MG TABLET PO PRN (15:41)
[2020-08-04] MEDS ORDERED: Clotrimazole/Betameth Dip CRM 45 APPL/45 GM TUBE TP PRN (15:41)
[2020-08-04] MEDS ORDERED: Naloxone 0.4 MG/ML INJ IVP PRN (15:41)
[2020-08-04] MEDS ORDERED: D5% in Water 1,000 ML IVC PRN (15:41)
[2020-08-04] MEDS ORDERED: Fluticasone Propionate Nasal 50 MCG/SPRAY BOTTLE NS PRN (15:41)
[2020-08-04] MEDS ORDERED: *HR* Dextrose 50 % in Water (Vial) 50 ML VIAL IVP PRN (15:41)
[2020-08-04] MEDS ORDERED: Insulin Regular, Human 100 UNIT/ML SQ SCH (15:41)
[2020-08-04] MEDS ORDERED: MOM Conc 10 ML UD.LIQ PO PRN (15:41)
[2020-08-04] MEDS ORDERED: Dextrose Gel 15 GM/37.5 ML TUBE PO PRN ×2 (15:41)
[2020-08-04] MEDS ORDERED: Ondansetron 4 MG/2 ML VIAL IVP PRN (15:41)
[2020-08-04 15:55] LABS: Hematocrit 32.9 % (35.3-44.9); Hemoglobin 9.8 g/dL (11.5-15.4)
[2020-08-04] MEDS: Insulin LISPRO 300 UNITS/3 ML VIAL SQ SCH ×3 (16:03→22:26)
[2020-08-04] MEDS: Ascorbic Acid 500 MG TABLET PO SCH (17:00)
[2020-08-04] MEDS: Insulin NPH 100 UNIT/ML (x5UNIT) SQ SCH (17:09)
[2020-08-04] MEDS: CeFAZolin 2 GM/120 ML BAG IVPB SCH (22:23)
[2020-08-04] MEDS: traZODone 50 MG TABLET PO PRN (22:25)
[2020-08-04] MEDS: Gabapentin 300 MG CAPSULE PO SCH (22:25)
[2020-08-04] MEDS: *HR* OxyCODONE Immed Rel 5 MG TABLET PO PRN (22:33)
[2020-08-05] MEDS: CeFAZolin 2 GM/120 ML BAG IVPB SCH (04:23)
[2020-08-05] MEDS: *HR* OxyCODONE Immed Rel 5 MG TABLET PO PRN ×2 (04:25→20:54)
[2020-08-05 05:00] LABS: Basophils % 0.2 %; Hematocrit 25.3 % (35.3-44.9); Immature Granulocytes % 0.4 % (0-4); Lymphocytes # 1.1 K/mcL (0.6-4.6); Lymphocytes % 10.7 %; Mean Corpuscular HGB Conc 30.4 g/dL (31.6-35.5); Mean Corpuscular Hemoglobin 28.7 pg (28.0-33.3); Mean Corpuscular Volume 94.4 fL (83.0-100.0); Mean Platelet Volume 10.8 fL (9.4-12.4); Monocytes # 0.7 K/mcL (0.0-1.3); Monocytes % 6.7 %; Neutrophils # 8.1 K/mcL (1.6-8.9); Platelet Count 173 K/mcL (140-400); Red Blood Count 2.68 M/mcL (3.82-4.97); White Blood Count 9.9 K/mcL (4.3-11.1)
[2020-08-05 05:05] LABS: Hemoglobin 7.7 g/dL (11.5-15.4)
[2020-08-05 05:13] LABS: Calcium 8.4 mg/dL (8.6-10.3); Potassium 5.5 mEq/L (3.5-5.1)
[2020-08-05] MEDS: Insulin LISPRO 300 UNITS/3 ML VIAL SQ SCH ×4 (06:01→23:45)
[2020-08-05] MEDS ORDERED: Insulin LISPRO 300 UNITS/3 ML VIAL SQ ONE (08:36)
[2020-08-05] MEDS: Insulin NPH 100 UNIT/ML (x5UNIT) SQ SCH ×2 (08:49→18:17)
[2020-08-05] MEDS: Isosorbide MONOnitrate (24 HR) 30 MG TAB.ER.24H PO SCH (08:50)
[2020-08-05] MEDS ORDERED: 0.9 % Sodium Chloride 250 ML ONE ×2 (09:20→14:50)
[2020-08-05] MEDS: Ascorbic Acid 500 MG TABLET PO SCH ×2 (09:48→18:17)
[2020-08-05] MEDS: Cholecalciferol (D-3) 1,000 UNIT (25MCG) TABLET PO SCH (09:48)
[2020-08-05] MEDS: Metoprolol XL (24 HR) Succ 25 MG TAB.ER.24H PO SCH (09:48)
[2020-08-05] MEDS: Multivit/Ca/Min/Fe/FA 1 TAB TABLET PO SCH (09:48)
[2020-08-05] MEDS: Cyanocobalamin (B-12) 1,000 MCG TABLET PO SCH (09:48)
[2020-08-05] MEDS: Aspirin Enteric Coated 81 MG Tablet PO SCH (09:48)
[2020-08-05] MEDS: Gabapentin 300 MG CAPSULE PO SCH ×2 (09:48→20:54)
[2020-08-05] MEDS: Loratadine 10 MG TABLET PO SCH (09:48)
[2020-08-05] MEDS ORDERED: Scopolamine Patch 1.5 MG PATCH.TD72 TD ONE (13:57)
[2020-08-05] MEDS: Furosemide 40 MG TABLET PO SCH (17:14)
[2020-08-05] MEDS: HYDROcodone BIT/Homatropine 5 MG TABLET PO PRN (18:17)
[2020-08-05] MEDS: traZODone 50 MG TABLET PO PRN (21:00)
[2020-08-06 05:59] LABS: Basophils % 0.5 %; Eosinophils # 0.3 K/mcL (0.0-0.6); Eosinophils % 4.4 %; Hematocrit 34.6 % (35.3-44.9); Immature Granulocytes % 0.3 % (0-4); Lymphocytes # 1.4 K/mcL (0.6-4.6); Lymphocytes % 22.8 %; Mean Corpuscular HGB Conc 30.6 g/dL (31.6-35.5); Mean Corpuscular Hemoglobin 28.6 pg (28.0-33.3); Mean Corpuscular Volume 93.5 fL (83.0-100.0); Mean Platelet Volume 10.6 fL (9.4-12.4); Monocytes # 0.4 K/mcL (0.0-1.3); Monocytes % 6.9 %; Neutrophils # 3.9 K/mcL (1.6-8.9); Platelet Count 162 K/mcL (140-400); Red Cell Distribution Width 14.5 % (11.5-14.5); Segmented Neutrophils % 65.1 %
[2020-08-06 06:04] LABS: Hemoglobin 10.6 g/dL (11.5-15.4)
[2020-08-06 06:17] LABS: Potassium 4.5 mEq/L (3.5-5.1)
[2020-08-06] MEDS: HYDROcodone BIT/Homatropine 5 MG TABLET PO PRN (06:48)
[2020-08-06] MEDS: Insulin LISPRO 300 UNITS/3 ML VIAL SQ SCH ×2 (07:17→12:57)
[2020-08-06] MEDS: Cholecalciferol (D-3) 1,000 UNIT (25MCG) TABLET PO SCH (07:55)
[2020-08-06] MEDS: Multivit/Ca/Min/Fe/FA 1 TAB TABLET PO SCH (07:55)
[2020-08-06] MEDS: Insulin NPH 100 UNIT/ML (x5UNIT) SQ SCH (07:55)
[2020-08-06] MEDS: Aspirin Enteric Coated 81 MG Tablet PO SCH (07:56)
[2020-08-06] MEDS: Gabapentin 300 MG CAPSULE PO SCH (07:56)
[2020-08-06] MEDS: Ascorbic Acid 500 MG TABLET PO SCH (07:56)
[2020-08-06] MEDS: Loratadine 10 MG TABLET PO SCH (07:57)
[2020-08-06] MEDS: Isosorbide MONOnitrate (24 HR) 30 MG TAB.ER.24H PO SCH (07:57)
[2020-08-06] MEDS: Cyanocobalamin (B-12) 1,000 MCG TABLET PO SCH (07:58)
[2020-08-06] MEDS: Metoprolol XL (24 HR) Succ 25 MG TAB.ER.24H PO SCH (07:58)
[2020-08-06] MEDS: Furosemide 40 MG TABLET PO SCH (07:58)
[2020-08-06] MEDS ORDERED: FLU Vac QV 20-21 (6Month+)/PF 0.5 ML SYRINGE IM ONE (09:54)
[2020-08-06 12:18] VITALS: BP 120/74
== END 2020-08-06 14:51 | disposition home or self-care (01) | DRG 467 ==
LOC: SAMDAY 08:57 → 3NENU 15:19
PROVIDERS: ADMIT Orthopaedic Surgery; ATTEND Orthopaedic Surgery

== ENCOUNTER 2020-11-02 10:58 | Inpatient (IN) ==
[2020-11-02 12:30] LABS: Basophils # 0.1 K/mcL (0.0-0.2); Basophils % 0.8 %; Eosinophils # 0.1 K/mcL (0.0-0.6); Immature Granulocytes % 3.8 % (0-4); Lymphocytes # 1.4 K/mcL (0.6-4.6); Lymphocytes % 23.4 %; Mean Corpuscular HGB Conc 31.3 g/dL (31.6-35.5); Mean Corpuscular Hemoglobin 29.5 pg (28.0-33.3); Mean Corpuscular Volume 94.4 fL (83.0-100.0); Mean Platelet Volume 10.6 fL (9.4-12.4); Monocytes # 0.5 K/mcL (0.0-1.3); Monocytes % 8.9 %; Neutrophils # 3.7 K/mcL (1.6-8.9); Platelet Count 244 K/mcL (140-400); Red Blood Count 3.39 M/mcL (3.82-4.97); Red Cell Distribution Width 14.1 % (11.5-14.5); Segmented Neutrophils % 62.1 %
[2020-11-02 12:51] LABS: BUN/Creatinine Ratio 33 (6-26); Blood Urea Nitrogen 64 mg/dL (8-23); Carbon Dioxide 26 mEq/L (23-29); Chloride 98 mEq/L (98-107); Glucose 167 mg/dL (70-105); Osmolality,Calculated 296 (280-300); Potassium 4.8 mEq/L (3.5-5.1); Sodium 132 mEq/L (136-145); Troponin I < 0.03 ng/mL (< 0.04); eGFR For African Americans 31 (> 60); eGFR For Non-African Americans 26 (> 60)
[2020-11-02 13:01] LABS: Platelet Estimate Normal (Normal); Reactive Lymphocytes Present (Not Present)
[2020-11-02] MEDS ORDERED: Piperacillin/Tazobactam 3.375 GM in 0.9 % Sodium Chloride Mini Bag 100 ML IVPB ONE (13:28)
[2020-11-02] MEDS ORDERED: Dexamethasone 4 MG/ML VIAL IVP ONE (14:13)
[2020-11-02] MEDS ORDERED: Ondansetron 4 MG/2 ML VIAL IVP PRN (15:08)
[2020-11-02] MEDS ORDERED: Naloxone 0.4 MG/ML INJ IVP PRN (15:08)
[2020-11-02] MEDS ORDERED: *HR* Heparin 5,000 UNIT/ML VIAL IVP ONE (15:26)
[2020-11-02] MEDS ORDERED: *HR* Heparin 5,000 UNIT/ML VIAL IVP PRN ×2 (15:26)
[2020-11-02] MEDS ORDERED: Nitroglycerin 0.4 MG TAB.SUBL SL PRN (15:51)
[2020-11-02] MEDS ORDERED: *HR* Dextrose 50 % in Water (Vial) 50 ML VIAL IVP PRN (15:53)
[2020-11-02] MEDS ORDERED: Dextrose Gel 15 GM/37.5 ML TUBE PO PRN ×2 (15:53)
[2020-11-02] MEDS ORDERED: D5% in Water 1,000 ML IVC PRN (15:53)
[2020-11-02 16:05] LABS: Magnesium 2.5 mg/dL (1.6-2.6); Phosphorous 2.5 mg/dL (2.7-4.5)
[2020-11-02 17:03] LABS: Hematocrit 31.6 % (35.3-44.9); Hemoglobin 9.9 g/dL (11.5-15.4); Mean Corpuscular HGB Conc 31.3 g/dL (31.6-35.5); Mean Corpuscular Hemoglobin 28.9 pg (28.0-33.3); Mean Corpuscular Volume 92.1 fL (83.0-100.0); Mean Platelet Volume 10.3 fL (9.4-12.4); Platelet Count 243 K/mcL (140-400); Red Blood Count 3.43 M/mcL (3.82-4.97); Red Cell Distribution Width 14.1 % (11.5-14.5); White Blood Count 5.9 K/mcL (4.3-11.1)
[2020-11-02] MEDS: Azithromycin 500 MG in 0.9 % Sodium Chloride 250 ML IVPB SCH (17:04)
[2020-11-02] MEDS: 0.9 % Sodium Chloride 500 ML IVC SCH (17:05)
[2020-11-02] MEDS: cefTRIAXone 1,000 MG in Water for inj. (sterile) 10 ML IVP SCH (17:05)
[2020-11-02 17:06] LABS: INR 1.1; Prothrombin Time 12.3 Seconds (9.4-12.1)
[2020-11-02] MEDS: Heparin 25,000UNIT/250ML 1/2NS 25,000 UNIT/250 ML IV.SOLN IVC SCH (17:06)
[2020-11-02] MEDS: Insulin LISPRO 300 UNITS/3 ML VIAL SUBQ SCH ×2 (17:06→21:55)
[2020-11-02] MEDS: Ipratropium 1 PUFF INHALER IH SCH ×3 (17:08→23:54)
[2020-11-02 17:09] LABS: Activated Partial Thrombo Time 23.3 Seconds (26.0-36.0)
[2020-11-02 17:10] LABS: Heparin anti-factor XA UFH < 0.04 IU/mL (0.30-0.70)
[2020-11-02 17:18] LABS: Fibrinogen 672 mg/dL (169-393)
[2020-11-02 17:22] LABS: Estimated Average Glucose 266 mg/dl; Hemoglobin A1C 10.9 %
[2020-11-02 18:17] LABS: Bilirubin,Urine Negative (Negative); Blood,Urine Trace (Negative); Clarity,Urine Clear (Clear); Color,Urine Colorless (Yellow); Glucose,Urine (UA) 30 mg/dL (Normal); Ketones,Urine Negative (Negative); Leukocyte Esterase,Urine Negative (Negative); Nitrite,Urine Negative (Negative); Protein,Urine 50 mg/dL (Neg-Trace); RBC,Urine 0-3 per hpf (0-3); Specific Gravity,Urine 1.013 (1.010-1.025); Squamous Epithelial Cell,Urine Few per hpf (None-Few); Urobilinogen,Urine Normal (Normal); WBC,Urine 0-3 per hpf (0-3)
[2020-11-02 18:45] LABS: Sodium, Urine 56.2 mEq/L
[2020-11-02] MEDS: Loratadine 10 MG TABLET PO SCH (21:55)
[2020-11-03] MEDS: 0.9 % Sodium Chloride 500 ML IVC SCH (02:16)
[2020-11-03] MEDS: Ipratropium 1 PUFF INHALER IH SCH ×6 (03:53→23:08)
[2020-11-03 05:11] LABS: Hematocrit 29.9 % (35.3-44.9); Hemoglobin 9.2 g/dL (11.5-15.4); Mean Corpuscular HGB Conc 30.8 g/dL (31.6-35.5); Mean Corpuscular Hemoglobin 28.8 pg (28.0-33.3); Mean Corpuscular Volume 93.7 fL (83.0-100.0); Mean Platelet Volume 10.4 fL (9.4-12.4); Platelet Count 231 K/mcL (140-400); Red Blood Count 3.19 M/mcL (3.82-4.97); White Blood Count 3.8 K/mcL (4.3-11.1)
[2020-11-03 05:31] LABS: Albumin 3.3 g/dL (3.5-5.7); Albumin/Globulin Ratio 0.8 (1.1-2.2); Bilirubin,Total 0.3 mg/dL (0.3-1.0); Calcium 8.8 mg/dL (8.6-10.3); Chol/HDL Ratio 5.6 (0-4.9); Globulin 4.1 g/dL (2.4-3.5); Potassium 4.6 mEq/L (3.5-5.1); Total Protein 7.4 g/dL (6.4-8.9)
[2020-11-03 05:39] LABS: Lymphocytes # 1.4 K/mcL (0.6-4.6); Neutrophils # 2.4 K/mcL (1.6-8.9)
[2020-11-03 05:40] LABS: Platelet Estimate Normal (Normal); Reactive Lymphocytes Present (Not Present); Toxic Granulation Present (Not Present)
[2020-11-03] MEDS: Metoprolol XL (24 HR) Succ 25 MG TAB.ER.24H PO SCH (07:59)
[2020-11-03] MEDS: Cholecalciferol (D-3) 1,000 UNIT (25MCG) TABLET PO SCH (07:59)
[2020-11-03] MEDS: Cyanocobalamin (B-12) 1,000 MCG TABLET PO SCH (07:59)
[2020-11-03] MEDS: Aspirin Enteric Coated 81 MG Tablet PO SCH (07:59)
[2020-11-03] MEDS: Isosorbide MONOnitrate (24 HR) 60 MG TAB.ER.24H PO SCH (07:59)
[2020-11-03] MEDS: Dexamethasone 4 MG/ML VIAL IVP SCH (07:59)
[2020-11-03] MEDS: Isosorbide MONOnitrate (24 HR) 30 MG TAB.ER.24H PO SCH (07:59)
[2020-11-03] MEDS: Insulin LISPRO 300 UNITS/3 ML VIAL SUBQ SCH ×4 (08:01→21:26)
[2020-11-03] MEDS: Azithromycin 500 MG in 0.9 % Sodium Chloride 250 ML IVPB SCH (16:39)
[2020-11-03] MEDS: cefTRIAXone 1,000 MG in Water for inj. (sterile) 10 ML IVP SCH (16:40)
[2020-11-03] MEDS: Heparin 25,000UNIT/250ML 1/2NS 25,000 UNIT/250 ML IV.SOLN IVC SCH (16:40)
[2020-11-03] MEDS: Loratadine 10 MG TABLET PO SCH (21:26)
[2020-11-04] MEDS: Ipratropium 1 PUFF INHALER IH SCH ×2 (03:56→08:36)
[2020-11-04 05:15] LABS: Basophils # 0.1 K/mcL (0.0-0.2); Basophils % 0.9 %; Eosinophils % 0.5 %; Hemoglobin 9.1 g/dL (11.5-15.4); Immature Granulocytes % 3.9 % (0-4); Lymphocytes # 1.6 K/mcL (0.6-4.6); Lymphocytes % 24.3 %; Mean Corpuscular HGB Conc 31.4 g/dL (31.6-35.5); Mean Corpuscular Hemoglobin 29.8 pg (28.0-33.3); Mean Corpuscular Volume 95.1 fL (83.0-100.0); Mean Platelet Volume 10.1 fL (9.4-12.4); Monocytes # 0.5 K/mcL (0.0-1.3); Monocytes % 7.4 %; Neutrophils # 4.1 K/mcL (1.6-8.9); Platelet Count 266 K/mcL (140-400); Red Blood Count 3.05 M/mcL (3.82-4.97); Red Cell Distribution Width 14.2 % (11.5-14.5)
[2020-11-04 05:16] LABS: White Blood Count 6.5 K/mcL (4.3-11.1)
[2020-11-04 05:34] LABS: Calcium 8.7 mg/dL (8.6-10.3); Potassium 4.2 mEq/L (3.5-5.1)
[2020-11-04 07:38] VITALS: BP 153/89
[2020-11-04] MEDS: Insulin LISPRO 300 UNITS/3 ML VIAL SUBQ SCH (08:13)
[2020-11-04] MEDS: Dexamethasone 4 MG/ML VIAL IVP SCH (08:14)
[2020-11-04] MEDS: Aspirin Enteric Coated 81 MG Tablet PO SCH (08:15)
[2020-11-04] MEDS: Isosorbide MONOnitrate (24 HR) 60 MG TAB.ER.24H PO SCH (08:15)
[2020-11-04] MEDS: Cyanocobalamin (B-12) 1,000 MCG TABLET PO SCH (08:15)
[2020-11-04] MEDS: Cholecalciferol (D-3) 1,000 UNIT (25MCG) TABLET PO SCH (08:15)
[2020-11-04] MEDS: Isosorbide MONOnitrate (24 HR) 30 MG TAB.ER.24H PO SCH (08:16)
[2020-11-04] MEDS: Metoprolol XL (24 HR) Succ 25 MG TAB.ER.24H PO SCH (08:16)
== END 2020-11-04 10:43 | disposition home health service (06) | DRG 177 ==
LOC: 3BNU 10:58 → EMEROOARM 10:58 → 3BNU 15:30
PROVIDERS: ADMIT Student in an Organized Health Care Education/Training Program; ATTEND Student in an Organized Health Care Education/Training Program

== ENCOUNTER 2022-02-14 16:25 | Inpatient (IN) ==
[2022-02-14 19:05] LABS: Basophils # 0.1 K/mcL (0.0-0.2); Basophils % 0.7 %; Eosinophils # 0.5 K/mcL (0.0-0.6); Eosinophils % 6.3 %; Hematocrit 39.8 % (35.3-44.9); Hemoglobin 12.2 g/dL (11.5-15.4); Immature Granulocytes % 0.4 % (0-4); Lymphocytes # 2.1 K/mcL (0.6-4.6); Lymphocytes % 29.2 %; Mean Corpuscular HGB Conc 30.7 g/dL (31.6-35.5); Mean Corpuscular Hemoglobin 29.9 pg (28.0-33.3); Mean Corpuscular Volume 97.5 fL (83.0-100.0); Mean Platelet Volume 10.2 fL (9.4-12.4); Monocytes # 0.6 K/mcL (0.0-1.3); Monocytes % 7.7 %; Platelet Count 211 K/mcL (140-400); Red Blood Count 4.08 M/mcL (3.82-4.97); Segmented Neutrophils % 55.7 %; White Blood Count 7.2 K/mcL (4.3-11.1)
[2022-02-14 19:27] LABS: Alanine Aminotransferase 9 Units/L (7-52); Albumin 4.1 g/dL (3.5-5.7); Albumin/Globulin Ratio 1.1 (1.1-2.2); Alkaline Phosphatase 104 Units/L (34-104); Aspartate Amino Transferase 15 Units/L (13-39); BUN/Creatinine Ratio 25 (6-26); Bilirubin,Total 0.5 mg/dL (0.3-1.0); Blood Urea Nitrogen 41 mg/dL (8-23); Calcium 10.2 mg/dL (8.6-10.3); Carbon Dioxide 28 mEq/L (23-29); Chloride 101 mEq/L (98-107); Globulin 3.6 g/dL (2.4-3.5); Glucose 128 mg/dL (70-105); Osmolality,Calculated 300 (280-300); Potassium 4.6 mEq/L (3.5-5.1); Sodium 139 mEq/L (136-145); Total Protein 7.7 g/dL (6.4-8.9); Troponin I < 0.03 ng/mL (< 0.04); eGFR For African Americans 38 (> 60); eGFR For Non-African Americans 31 (> 60)
[2022-02-14] MEDS ORDERED: Aspirin 325 MG TABLET PO ONE (21:11)
[2022-02-14] MEDS ORDERED: Naloxone 0.4 MG/ML INJ IVP PRN (23:25)
[2022-02-14] MEDS ORDERED: Ondansetron 4 MG/2 ML VIAL IVP PRN (23:25)
[2022-02-15 01:29] LABS: Hematocrit 35.7 % (35.3-44.9); Hemoglobin 11.1 g/dL (11.5-15.4); Mean Corpuscular HGB Conc 31.1 g/dL (31.6-35.5); Mean Corpuscular Volume 96.5 fL (83.0-100.0); Mean Platelet Volume 10.2 fL (9.4-12.4); Platelet Count 184 K/mcL (140-400); White Blood Count 6.2 K/mcL (4.3-11.1)
[2022-02-15 01:47] LABS: BUN/Creatinine Ratio 27 (6-26); Blood Urea Nitrogen 41 mg/dL (8-23); Calcium 9.8 mg/dL (8.6-10.3); Carbon Dioxide 27 mEq/L (23-29); Chloride 105 mEq/L (98-107); Glucose 106 mg/dL (70-105); Osmolality,Calculated 299 (280-300); Potassium 4.5 mEq/L (3.5-5.1); Sodium 139 mEq/L (136-145); Troponin I < 0.03 ng/mL (< 0.04); eGFR For African Americans 40 (> 60); eGFR For Non-African Americans 33 (> 60)
[2022-02-15] MEDS ORDERED: Perflutren Lipid Microsphere 1.3 ML in 0.9 % Sodium Chloride 8.7 ML IVP PRN (03:44)
[2022-02-15] MEDS ORDERED: D5% in Water 1,000 ML IVC PRN ×2 (04:28→13:31)
[2022-02-15] MEDS ORDERED: Dextrose 4 GM Chewable Tablets PO PRN ×4 (04:28→13:31)
[2022-02-15] MEDS ORDERED: *HR* Dextrose 50 % in Water (Syg) 50 ML SYRINGE IVP PRN ×2 (04:28→13:31)
[2022-02-15] MEDS: Insulin LISPRO 300 UNITS/3 ML VIAL SUBQ SCH ×3 (06:41→16:38)
[2022-02-15] MEDS ORDERED: Regadenoson 0.4 MG/5 ML SYRINGE IVP ONE (08:30)
[2022-02-15] MEDS: Cyanocobalamin (B-12) 1,000 MCG TABLET PO SCH (12:16)
[2022-02-15] MEDS ORDERED: Loratadine 10 MG TABLET PO SCH (21:00)
[2022-02-15] MEDS ORDERED: Aspirin Enteric Coated 81 MG Tablet PO SCH (21:00)
[2022-02-16] MEDS: Insulin LISPRO 300 UNITS/3 ML VIAL SUBQ SCH ×2 (08:30→12:01)
[2022-02-16] MEDS: Cyanocobalamin (B-12) 1,000 MCG TABLET PO SCH (08:30)
[2022-02-16 11:31] VITALS: PULSE 99; TEMP 97.6; O2SAT 93
[2022-02-16] MEDS ORDERED: Isosorbide MONOnitrate (24 HR) 60 MG TAB.ER.24H PO SCH (12:15)
[2022-02-16] MEDS ORDERED: Metoprolol XL (24 HR) Succ 25 MG TAB.ER.24H PO SCH (12:15)
[2022-02-16] MEDS ORDERED: Isosorbide MONOnitrate (24 HR) 30 MG TAB.ER.24H PO SCH (12:15)
[2022-02-16 12:30] VITALS: BP 168/82
[2022-02-17] MEDS ORDERED: Bumetanide 1 MG TABLET PO SCH (09:00)
== END 2022-02-16 13:25 | disposition home or self-care (01) | DRG 204 ==
LOC: 3BNU 16:25 → EMEROOARM 16:25 → 3BNU 23:49
PROVIDERS: ADMIT Student in an Organized Health Care Education/Training Program; ATTEND Student in an Organized Health Care Education/Training Program

== ENCOUNTER 2022-04-19 06:39 | Observation (INO) ==
[2022-04-19] MEDS ORDERED: *HR* Rocuronium Bromide 50 MG/5 ML VIAL ONE (07:13)
[2022-04-19] MEDS ORDERED: *HR* FentaNYL (PF) 100 MCG/2 ML VIAL ONE (07:13)
[2022-04-19] MEDS ORDERED: Lidocaine -MPF 4% 5 ML AMPUL ONE (07:13)
[2022-04-19] MEDS ORDERED: *HR* Succinylcholine 200 MG/10 ML VIAL IVP ONE (07:13)
[2022-04-19] MEDS ORDERED: Ondansetron 4 MG/2 ML VIAL ONE (07:13)
[2022-04-19] MEDS ORDERED: Lidocaine -MPF 2% 2 ML VIAL ONE (07:13)
[2022-04-19] MEDS ORDERED: *HR* Propofol 200 MG/20 ML VIAL IVP ONE (07:14)
[2022-04-19] MEDS ORDERED: Gentamicin 80 MG/2 ML VIAL IM ONE (07:28)
[2022-04-19] MEDS: Ringers Solution, Lactated 1,000 ML IVC SCH ×3 (07:57→16:48)
[2022-04-19] MEDS ORDERED: cefOXitin 2,000 MG in 0.9 % Sodium Chloride 20 ML IVP ONE (08:01)
[2022-04-19] MEDS ORDERED: Ondansetron 4 MG/2 ML VIAL IVP PRN (08:16)
[2022-04-19] MEDS ORDERED: *HR* HYDROmorphone PF 0.5 MG/0.5 ML SYRINGE IVP PRN (08:16)
[2022-04-19] MEDS ORDERED: Promethazine 6.25 MG in Water for inj. (sterile) 20 ML IVPB PRN (08:16)
[2022-04-19] MEDS ORDERED: *HR* OxyCODONE Immed Rel 5 MG TABLET PO PRN (08:16)
[2022-04-19] MEDS ORDERED: Naloxone 0.4 MG/ML INJ IVP PRN (08:25)
[2022-04-19] MEDS ORDERED: CefOXitin 2,000 MG VIAL ONE (09:08)
[2022-04-19] MEDS ORDERED: Dextrose Gel 15 GM/37.5 ML TUBE PO PRN ×2 (16:06)
[2022-04-19] MEDS ORDERED: *HR* Dextrose 50 % in Water (Syg) 50 ML SYRINGE IVP PRN (16:06)
[2022-04-19] MEDS ORDERED: D5% in Water 1,000 ML IVC PRN (16:06)
[2022-04-19] MEDS: Insulin LISPRO 300 UNITS/3 ML VIAL SUBQ SCH (16:42)
[2022-04-19] MEDS: Ampicillin/Sulbactam 1,500 MG in 0.9 % Sodium Chloride Mini Bag 100 ML IVPB SCH (16:48)
[2022-04-20] MEDS: Ampicillin/Sulbactam 1,500 MG in 0.9 % Sodium Chloride Mini Bag 100 ML IVPB SCH ×2 (01:33→06:14)
[2022-04-20 05:34] LABS: Basophils % 0.3 %; Eosinophils % 0.1 %; Hematocrit 32.5 % (35.3-44.9); Immature Granulocytes % 0.6 % (0-4); Lymphocytes # 1.2 K/mcL (0.6-4.6); Lymphocytes % 17.4 %; Mean Corpuscular HGB Conc 30.8 g/dL (31.6-35.5); Mean Corpuscular Hemoglobin 29.9 pg (28.0-33.3); Mean Corpuscular Volume 97.3 fL (83.0-100.0); Mean Platelet Volume 10.8 fL (9.4-12.4); Monocytes # 0.6 K/mcL (0.0-1.3); Monocytes % 8.7 %; Platelet Count 205 K/mcL (140-400); Red Blood Count 3.34 M/mcL (3.82-4.97); Red Cell Distribution Width 13.2 % (11.5-14.5); Segmented Neutrophils % 72.9 %; White Blood Count 6.9 K/mcL (4.3-11.1)
[2022-04-20 05:53] LABS: Calcium 8.8 mg/dL (8.6-10.3); Potassium 4.6 mEq/L (3.5-5.1)
[2022-04-20] MEDS: Ringers Solution, Lactated 1,000 ML IVC SCH (06:15)
[2022-04-20] MEDS: Insulin LISPRO 300 UNITS/3 ML VIAL SUBQ SCH ×2 (08:43→13:03)
[2022-04-20] MEDS ORDERED: Aspirin Enteric Coated 81 MG Tablet PO SCH (09:00)
[2022-04-20] MEDS ORDERED: Isosorbide MONOnitrate (24 HR) 30 MG TAB.ER.24H PO SCH ×2 (09:00→21:00)
[2022-04-20] MEDS ORDERED: Bumetanide 1 MG TABLET PO SCH (09:00)
[2022-04-20] MEDS ORDERED: Gabapentin 300 MG CAPSULE PO SCH (09:00)
[2022-04-20] MEDS ORDERED: Metoprolol XL (24 HR) Succ 25 MG TAB.ER.24H PO SCH (09:00)
[2022-04-20] MEDS ORDERED: Isosorbide MONOnitrate (24 HR) 60 MG TAB.ER.24H PO SCH (09:00)
[2022-04-20 13:50] VITALS: BP 144/81; PULSE 81; TEMP 98; O2SAT 92
== END 2022-04-20 16:27 | disposition home or self-care (01) ==
LOC: 3BNU 06:39 → SAMDAY 06:39 → 3BNU 12:35 → SUATTDRO 12:53
PROVIDERS: ADMIT Hospitalist; ATTEND Internal Medicine